=== PATIENT | female | born 1945 | race Caucasian/White ===

== ENCOUNTER → 2020-05-20 13:56 | Outpatient (BNVA) | payer MEDICARE, SELFPAY | PROVIDERS: PCP Internal Medicine; Visit Provider Internal Medicine | DX: Z95.2 Presence of prosthetic heart valve (principal); Z79.01 Long term (current) use of anticoagulants; Z51.81 Encounter for therapeutic drug level monitoring | CPT/HCPCS: 99212 ==

== ENCOUNTER 2020-05-22 13:31 | Outpatient (REF) | payer MEDICARE, SELFPAY ==
--- NOTE | 2020-05-22 | MM_ITS ---
EXAMINATION: MM SCREENING DIGITAL BREAST TOMOSYNTHESIS, BILATERAL CLINICAL INFORMATION: Screening. Asymptomatic. The lifetime risk of breast cancer based on the Tyrer-Cuzick Model is 3%. COMPARISON: Mammography: 05/17/2019, 01/22/2018 TECHNIQUE: Digital breast tomosynthesis is performed in both the craniocaudal and mediolateral oblique views along with computer-aided detection (CAD). Synthesized 2D images are generated from the tomosynthesis. Additional exaggerated right CC view is provided. FINDINGS: There are scattered areas of fibroglandular density (ACR BI-RADS breast composition Category b). There are no significant masses, abnormal calcifications, or other abnormalities. No significant changes from prior studies. IMPRESSION: No mammographic evidence of malignancy. ASSESSMENT: BI-RADS 1: Negative RECOMMENDATION: Routine annual mammography screening. This patient's information was entered into a reminder system with a target due date for their next mammogram.
== END 2020-05-22 13:32 | disposition home or self-care (01) ==
LOC: HO.MAMMO 13:31
PROVIDERS: PCP Internal Medicine; Visit Provider Internal Medicine
DX: Z12.31 Encounter for screening mammogram for malignant neoplasm of breast (principal)
CPT/HCPCS: 77063; 77067

== ENCOUNTER → 2020-06-16 14:30 | Outpatient (BNVA) | payer MEDICARE, SELFPAY | PROVIDERS: PCP Internal Medicine; Referring Provider Internal Medicine; Visit Provider Internal Medicine | DX: J44.9 Chronic obstructive pulmonary disease, unspecified (principal); G47.34 Idiopathic sleep related nonobstructive alveolar hypoventilation; Z79.01 Long term (current) use of anticoagulants; Z79.899 Other long term (current) drug therapy; Z95.2 Presence of prosthetic heart valve | CPT/HCPCS: 94010; 99212 ==

== ENCOUNTER → 2020-06-17 13:10 | Outpatient (BNVA) | payer MEDICARE, SELFPAY | PROVIDERS: PCP Internal Medicine; Visit Provider Internal Medicine | DX: Z95.2 Presence of prosthetic heart valve (principal); Z51.81 Encounter for therapeutic drug level monitoring; Z79.01 Long term (current) use of anticoagulants | CPT/HCPCS: 85610; 99211 ==

== ENCOUNTER → 2020-06-24 10:39 | Outpatient (BNVA) | payer MEDICARE, SELFPAY | PROVIDERS: PCP Internal Medicine; Visit Provider Internal Medicine | DX: Z76.89 Persons encountering health services in other specified circumstances (principal) ==

== ENCOUNTER → 2020-07-01 10:08 | Outpatient (BNVA) | payer MEDICARE, SELFPAY | PROVIDERS: PCP Internal Medicine; Visit Provider Internal Medicine | DX: Z76.89 Persons encountering health services in other specified circumstances (principal) ==

== ENCOUNTER → 2020-07-08 13:39 | Outpatient (BNVA) | payer MEDICARE, SELFPAY | PROVIDERS: PCP Internal Medicine; Referring Provider Internal Medicine; Visit Provider Internal Medicine | DX: Z76.89 Persons encountering health services in other specified circumstances (principal) ==

== ENCOUNTER → 2020-07-13 13:55 | Outpatient (BNVA) | payer MEDICARE, SELFPAY | PROVIDERS: PCP Internal Medicine; Referring Provider Internal Medicine; Visit Provider Internal Medicine Cardiovascular Disease | DX: I48.20 Chronic atrial fibrillation, unspecified (principal); I50.30 Unspecified diastolic (congestive) heart failure; T82.09XA Other mechanical complication of heart valve prosthesis, initial encounter; E78.5 Hyperlipidemia, unspecified | CPT/HCPCS: 93005; 99212 ==

== ENCOUNTER → 2020-07-15 15:00 | Outpatient (BNVA) | payer MEDICARE, SELFPAY | PROVIDERS: PCP Internal Medicine; Visit Provider Internal Medicine | DX: Z76.89 Persons encountering health services in other specified circumstances (principal) ==

== ENCOUNTER → 2020-07-22 11:46 | Outpatient (BNVA) | payer MEDICARE, SELFPAY | PROVIDERS: PCP Internal Medicine; Visit Provider Internal Medicine | DX: Z76.89 Persons encountering health services in other specified circumstances (principal) ==

== ENCOUNTER → 2020-07-29 12:34 | Outpatient (BNVA) | payer MEDICARE, SELFPAY | PROVIDERS: PCP Internal Medicine; Visit Provider Internal Medicine | DX: Z76.89 Persons encountering health services in other specified circumstances (principal) ==

== ENCOUNTER → 2020-08-05 14:16 | Outpatient (BNVA) | payer MEDICARE, SELFPAY | PROVIDERS: PCP Internal Medicine; Visit Provider Internal Medicine | DX: Z76.89 Persons encountering health services in other specified circumstances (principal) ==

== ENCOUNTER → 2020-08-12 10:45 | Outpatient (BNVA) | payer MEDICARE, SELFPAY | PROVIDERS: PCP Internal Medicine; Visit Provider Internal Medicine | DX: Z76.89 Persons encountering health services in other specified circumstances (principal) ==

== ENCOUNTER → 2020-08-13 09:05 | Outpatient (BNVA) | payer MEDICARE, SELFPAY | PROVIDERS: PCP Internal Medicine; Visit Provider Internal Medicine | DX: Z76.89 Persons encountering health services in other specified circumstances (principal) ==

== ENCOUNTER → 2020-08-19 11:55 | Outpatient (BNVA) | payer MEDICARE, SELFPAY | PROVIDERS: PCP Internal Medicine; Visit Provider Internal Medicine | DX: Z76.89 Persons encountering health services in other specified circumstances (principal) ==

== ENCOUNTER → 2020-08-26 09:51 | Outpatient (BNVA) | payer MEDICARE, SELFPAY | PROVIDERS: PCP Internal Medicine; Visit Provider Internal Medicine | DX: Z76.89 Persons encountering health services in other specified circumstances (principal) ==

== ENCOUNTER → 2020-08-31 11:58 | Outpatient (BNVA) | payer MEDICARE, SELFPAY | PROVIDERS: PCP Internal Medicine; Visit Provider Internal Medicine ==

== ENCOUNTER → 2020-09-09 10:38 | Outpatient (BNVA) | payer MEDICARE, SELFPAY | PROVIDERS: PCP Internal Medicine; Visit Provider Internal Medicine | DX: Z76.89 Persons encountering health services in other specified circumstances (principal) ==

== ENCOUNTER → 2020-09-16 12:34 | Outpatient (BNVA) | payer MEDICARE, SELFPAY | PROVIDERS: PCP Internal Medicine; Visit Provider Internal Medicine | DX: Z95.2 Presence of prosthetic heart valve (principal); Z51.81 Encounter for therapeutic drug level monitoring; Z79.01 Long term (current) use of anticoagulants | CPT/HCPCS: Q3014 ==

== ENCOUNTER → 2020-09-23 10:13 | Outpatient (BNVA) | payer MEDICARE, SELFPAY | PROVIDERS: PCP Internal Medicine; Visit Provider Internal Medicine ==

== ENCOUNTER → 2020-09-30 09:34 | Outpatient (BNVA) | payer MEDICARE, SELFPAY | PROVIDERS: PCP Internal Medicine; Visit Provider Internal Medicine | DX: Z95.2 Presence of prosthetic heart valve (principal); Z51.81 Encounter for therapeutic drug level monitoring; Z79.01 Long term (current) use of anticoagulants | CPT/HCPCS: Q3014 ==

== ENCOUNTER 2020-10-06 10:51 | Outpatient (REF) | payer MEDICARE, SELFPAY ==
[2020-10-06 13:56] LABS: Anion Gap 16 (12-20); Blood Urea Nitrogen 22 mg/dL (9-16); Carbon Dioxide 33 mmol/L (22-29); Chloride 91 mmol/L (96-108); Estimated Glomerular Filt Rate > 60; Magnesium 1.6 mg/dL (1.6-2.6); Sodium 137 mmol/L (135-145)
[2020-10-06 14:56] LABS: Free T4 (Free Thyroxine) 1.13 ng/dL (0.71-1.85)
== END 2020-10-06 10:52 | disposition home or self-care (01) ==
LOC: HO.WFDLDS 10:51
PROVIDERS: Visit Provider Internal Medicine
DX: S62.102A Fracture of unspecified carpal bone, left wrist, initial encounter for closed fracture (principal); E87.6 Hypokalemia; E83.42 Hypomagnesemia; E03.9 Hypothyroidism, unspecified
CPT/HCPCS: 36415; 80051; 82565; 83735; 84439; 84443; 84520

== ENCOUNTER → 2020-10-07 12:01 | Outpatient (BNVA) | payer MEDICARE, SELFPAY | PROVIDERS: PCP Internal Medicine; Visit Provider Internal Medicine | DX: Z95.2 Presence of prosthetic heart valve (principal); Z51.81 Encounter for therapeutic drug level monitoring; Z79.01 Long term (current) use of anticoagulants | CPT/HCPCS: Q3014 ==

== ENCOUNTER → 2020-10-14 11:01 | Outpatient (BNVA) | payer MEDICARE, SELFPAY | PROVIDERS: PCP Internal Medicine; Visit Provider Internal Medicine | DX: Z95.2 Presence of prosthetic heart valve (principal); Z51.81 Encounter for therapeutic drug level monitoring; Z79.01 Long term (current) use of anticoagulants | CPT/HCPCS: Q3014 ==

== ENCOUNTER → 2020-10-21 09:55 | Outpatient (BNVA) | payer MEDICARE, SELFPAY | PROVIDERS: PCP Internal Medicine; Visit Provider Internal Medicine | DX: Z95.2 Presence of prosthetic heart valve (principal); Z51.81 Encounter for therapeutic drug level monitoring; Z79.01 Long term (current) use of anticoagulants | CPT/HCPCS: Q3014 ==

== ENCOUNTER → 2020-10-27 14:24 | Outpatient (BNVA) | payer MEDICARE, SELFPAY | PROVIDERS: PCP Internal Medicine; Visit Provider Internal Medicine | DX: J44.9 Chronic obstructive pulmonary disease, unspecified (principal); G47.34 Idiopathic sleep related nonobstructive alveolar hypoventilation; Z79.51 Long term (current) use of inhaled steroids; Z79.899 Other long term (current) drug therapy | CPT/HCPCS: 99212 ==

== ENCOUNTER → 2020-10-28 10:49 | Outpatient (BNVA) | payer MEDICARE, SELFPAY | PROVIDERS: PCP Internal Medicine; Visit Provider Internal Medicine ==

== ENCOUNTER → 2020-11-04 10:45 | Outpatient (BNVA) | payer MEDICARE, SELFPAY | PROVIDERS: PCP Internal Medicine; Visit Provider Internal Medicine ==

== ENCOUNTER 2020-11-09 10:21 | Outpatient (REF) | payer MEDICARE, SELFPAY ==
[2020-11-09 13:38] LABS: Hematocrit 34.1 % (37-47)
[2020-11-09 14:13] LABS: Alanine Aminotransferase 22 U/L (0-31); Albumin Level 3.7 g/dL (3.5-5.0); Alkaline Phosphatase 61 U/L (39-117); Anion Gap 16 (12-20); Aspartate Amino Transferase 25 U/L (5-31); Bilirubin Direct 0.3 mg/dL (0.0-0.5); Bilirubin Total 0.8 mg/dL (0.0-1.0); Blood Urea Nitrogen 14 mg/dL (9-16); Calcium 9.3 mg/dL (8.4-10.2); Carbon Dioxide 39 mmol/L (22-29); Chloride 87 mmol/L (96-108); Cholesterol 221 mg/dL; Estimated Glomerular Filt Rate > 60; Glucose Random 100 mg/dL (60-115); HDL Cholesterol 62 mg/dL; LDL Cholesterol Calculated 145 mg/dl; Potassium 2.9 mmol/L (3.3-5.1); Sodium 139 mmol/L (135-145); Total Protein 7.3 g/dL (6.5-8.0); Triglycerides 70 mg/dL
[2020-11-09 14:31] LABS: TSH reflex Free T4 6.46 uIU/mL (0.32-4.0)
[2020-11-09 15:21] LABS: Free T4 (Free Thyroxine) 1.14 ng/dL (0.71-1.85)
== END 2020-11-09 10:22 | disposition home or self-care (01) ==
LOC: HO.WFDLDS 10:21
PROVIDERS: Visit Provider Internal Medicine
DX: E03.9 Hypothyroidism, unspecified (principal); I48.20 Chronic atrial fibrillation, unspecified; J44.9 Chronic obstructive pulmonary disease, unspecified; Z93.3 Colostomy status
CPT/HCPCS: 36415; 80048; 80061; 80076; 84439; 84443; 85014; 85018

== ENCOUNTER 2020-11-10 15:52 | Emergency (ER) | payer MEDICARE, SELFPAY ==
--- NOTE | 2020-11-10 17:14 | ECG_ITS ---
Test Reason : ABNORMAL LABS Blood Pressure : / mmHG Vent. Rate : 107 BPM Atrial Rate : 108 BPM P-R Int : 000 ms QRS Dur : 106 ms QT Int : 464 ms P-R-T Axes : 000 041 233 degrees QTc Int : 619 ms Atrial fibrillation with rapid ventricular response with premature ventricular or aberrantly conducted complexes Septal infarct (cited on or before 29-NOV-2011) ST & T wave abnormality, consider inferolateral ischemia Abnormal ECG When compared with ECG of 29-NOV-2011 14:06, Atrial fibrillation has replaced Sinus rhythm ST now depressed in Lateral leads T wave inversion less evident in Anterolateral leads QT has lengthened Referred By: Generic ED Physician Electronically Signed By:Kale Mock
[2020-11-10 17:32] VITALS: BP 139/69; PULSE 98; RESP 14; O2SAT 94
[2020-11-10 17:40] LABS: Basophils Absolute Auto 0.1 X10*3/uL (0.0-0.2); Basophils Percent Auto 0.7 % (0-2); Eosinophils Absolute Auto 0.7 X10*3/uL (0.0-0.4); Eosinophils Percent Auto 6.1 % (0-4); Hematocrit 32.7 % (37-47); Hemoglobin 10.9 g/dl (12.0-16.0); Imm Gran Abs Auto 0.04 X10*3/uL (0.00-0.03); Imm Gran Pct Auto 0.4 % (0.0-0.4); Lymphocytes Absolute Auto 0.6 X10*3/uL (1.2-4.9); Lymphocytes Percent Auto 5.2 % (20-40); MANUAL DIFF FLAG SCAN; Mean Corpuscular HGB Conc 33.3 g/dl (31.0-35.0); Mean Corpuscular Hemoglobin 29.6 pg (27.0-33.0); Mean Corpuscular Volume 88.9 fL (80-98); Mean Platelet Volume 8.4 fL (9.4-12.3); Monocytes Absolute Auto 0.7 X10*3/uL (0.1-1.2); Monocytes Percent Auto 6.3 % (2-11); Neutrophils Absolute Auto 8.9 X10*3/uL (2.0-8.3); Neutrophils Percent Auto 81.3 % (45-73); Platelet Count 376 X10*3/uL (160-400); Red Blood Count 3.68 X10*6/uL (4.20-5.50); Red Cell Distribution Width 14.3 % (11.0-16.0); SCAN SMEAR FLAG 1
[2020-11-10 18:15] LABS: Anion Gap 16 (12-20); Blood Urea Nitrogen 14 mg/dL (9-16); Calcium 8.9 mg/dL (8.4-10.2); Carbon Dioxide 34 mmol/L (22-29); Chloride 88 mmol/L (96-108); Estimated Glomerular Filt Rate > 60; Glucose Random 107 mg/dL (60-115); Potassium 2.8 mmol/L (3.3-5.1); SLIDE REVIEW VERIFIED; Sodium 135 mmol/L (135-145)
[2020-11-10 19:55] VITALS: BP 135/80; PULSE 94; RESP 16; TEMP 37.1; O2SAT 98; BMI 29.0
[2020-11-10 20:00] VITALS: BP 135/80; PULSE 94; RESP 16; TEMP 37.1; O2SAT 98
[2020-11-10 21:22] VITALS: BP 103/60; PULSE 92; RESP 19; TEMP 37.3; O2SAT 93
[2020-11-10 22:57] VITALS: BP 114/64; PULSE 98; RESP 18; TEMP 37.2; O2SAT 93
--- NOTE | 2020-11-10 23:07 | ED_ITS ---
HPI - Recheck/Abnormal Lab/Rx General Chief Complaint: Recheck/Abnormal Lab/Rx Stated Complaint: abnormal labs Time Seen by Provider: 11/10/20 22:57 History of Present Illness HPI narrative: Patient is a 75-year-old female presents today with having a low potassium. Patient sent in for repletion. Has no clinical symptoms. Has a history of hypertension is on water pill. Patient had previous history of hypokalemia in the past. Related Data Home Medications Medication Instructions Recorded Confirmed albuterol sulfate 2.5 mg INHALATION Q4-6H PRN 09/30/20 10/07/20 fluticasone 500 mcg-salmeterol 50 ea INHALATION 09/30/20 10/07/20 mcg/dose blistr powdr for inhalation gabapentin 100 mg capsule 100 mg PO TID 09/30/20 10/07/20 montelukast 10 mg tablet 10 mg PO DAILY 09/30/20 10/07/20 potassium chloride 10 mEq 40 meq PO DAILY tab 10/27/20 tablet,extended release Previous Rx's Medication Instructions Recorded atorvastatin 80 mg tablet 80 mg PO BEDTIME 90 Days #90 tab 07/13/20 diltiazem HCl 180 mg 180 mg PO BID 90 Days #180 cap 07/23/20 capsule,extended release 24 hr warfarin 5 mg tablet 5 mg PO DAILY 90 Days #120 tab 08/12/20 metolazone 2.5 mg tablet 2.5 mg PO DAILY 90 Days #90 tab 08/21/20 levothyroxine 125 mcg tablet 125 mcg PO DAILY #90 cap 09/21/20 omeprazole 20 mg capsule,delayed 20 mg PO DAILY #90 cap 09/21/20 release bumetanide 2 mg tablet 2 mg PO DAILY #30 tab 10/14/20 Allergies Allergy/AdvReac Type Severity Reaction Status Date / Time aspirin Allergy Unknown Sick Verified 11/04/20 10:46 codeine [CODEINE] AdvReac Intermediate NAUSEA & Verified 11/04/20 10:46 VOMITING ibuprofen [From ADVIL] AdvReac Intermediate NAUSEA & Verified 11/04/20 10:46 VOMITING Review of Systems Review of Systems: Constitutional: No Weight loss, No Fever, No Chills, No Night Sweats, No Fatigue, No Malaise ENT/Mouth: No Hearing loss, No Ear Pain, No Nasal Congestion, No Sinus Pain, No Hoarseness, No sore throat, No Rhinorrhea, No Swallowing Difficulty Eyes: No Eye Pain, No Swelling, No Redness, No Foreign Body, No Discharge, No Vision Changes Cardiovascular: No Chest Pain, No SOB, No Dyspnea on Exertion, No Orthopnea, No Edema, No Palpitations Respiratory: No Cough, No Sputum, No Wheezing, No Smoke Exposure, No Dyspnea Gastrointestinal: No Nausea, No Vomiting, No Diarrhea, No Constipation, No ab dominal Pain, No Hematochezia, No Melena Genitourinary: no irregular bleeding, No Dysuria, No Urinary Frequency, No Hematuria, No Urinary Incontinence, No Urgency, No Flank Pain, No Urinary Flow Changes, No Hesitancy Musculoskeletal: No joint pain, No Myalgias, No Joint Swelling Skin: No Skin Lesions, No rash Neuro: No Weakness, No Numbness, No Paresthesias, No Loss of Consciousness, No Dizziness, No Headache Psych: No Anxiety/Panic, No Depression, No SI/HI/AH/VH, No Social Issues, Heme/Lymph: No Bruising, No Bleeding,No Lymphadenopathy Endocrine: No Polyuria, No Polydipsia, No Temperature Intolerance FORMERLY [facility], 1928–1983 Past Medical History Attestation statement: The following information was validated with the patient. Medical History (HFpEF) heart failure with preserved ejection fraction Asthma Chronic atrial fibrillation COPD (chronic obstructive pulmonary disease) COPD (chronic obstructive pulmonary disease) GERD (gastroesophageal reflux disease) Hyperlipidemia Hypothyroid Nocturnal hypoxemia Prosthetic valve dysfunction Surgical History History of carpal tunnel release History of colonoscopy History of hysterectomy History of mechanical aortic valve replacement (~2002) History of salpingo-oophorectomy Family History Family History Mother No problems noted. Father Myocardial infarction CAD (coronary artery disease) Brother Myocardial infarction Brother Myocardial infarction Social History Social History Alcohol intake: unknown Smoking Status: Never smoker Use of substances other than those prescribed or required for medical reasons: No Advance Directives: No Physical Exam Vital Signs: Vital Signs: Last Vital Signs Temp 99.0 F 11/10/20 22:57 Pulse 98 11/10/20 22:57 Resp 18 11/10/20 22:57 BP 114/64 11/10/20 22:57 Pulse Ox 93 11/10/20 22:57 Body Mass Index 29.0 Appearance: Alert. Oriented X3. No acute distress. Eyes: Pupils equal, round and reactive to light. ENT: Pharynx normal. Neck: Normal inspection. Neck supple. No lymph nodes noted. No crepitus CVS: Normal heart rate and rhythm. Pulses normal. Normal S1 and S2 Respiratory: No respiratory distress. Breath sounds normal. No Wheezing. No rales Abdomen: Soft and nontender. No rigidity. No distention. good BS x4 Skin: Skin warm and dry. Normal skin color. Normal skin turgor. Extremities: No lower extremity edema. Neurovascular intact to all extremities. No Lacerations. No Rash Neuro: Oriented X 3. No motor deficit. No sensory deficit. Moving all extermities. No slurred speech MDM - Recheck/Abnormal Lab/Rx MDM Narrative Medical decision making narrative: Well-appearing no distress. Patient's potassium was 2.8. Will get a magnesium level. Will replete potassium. Patient's potassium was repleted. Repeat potassium is now 3.3. Will discharge patient home. Close follow-up outpatient basis. Encourage food that would in repeat her potassium including banana, v 8, orange juice, baked beans Lab Data Result diagrams: 11/10/20 17:31 11/11/20 00:33 Labs: Lab Results 11/10/20 11/10/20 11/11/20 Range/Units 17:31 17: 00:33 WBC 11.0 H (4.8-10.8) X10*3/uL RBC 3.68 L (4.20-5.50) X10*6/uL Hgb 10.9 L (12.0-16.0) g/dl Hct 32.7 L (37-47) % MCV 88.9 (80-98) fL MCH 29.6 (27.0-33.0) pg MCHC 33.3 (31.0-35.0) g/dl RDW 14.3 (11.0-16.0) % Plt Count 376 (160-400) X10*3/uL MPV 8.4 L (9.4-12.3) fL Immature Gran % (Auto) 0.4 (0.0-0.4) % Neut % (Auto) 81.3 H (45-73) % Lymph % (Auto) 5.2 L (20-40) % Mccracken % (Auto) 6.3 (2-11) % Eos % (Auto) 6.1 H (0-4) % Baso % (Auto) 0.7 (0-2) % Lymph # (Auto) 0.6 L (1.2-4.9) X10*3/uL Mccracken # (Auto) 0.7 (0.1-1.2) X10*3/uL Eos # (Auto) 0.7 H (0.0-0.4) X10*3/uL Baso # (Auto) 0.1 (0.0-0.2) X10*3/uL Abs Immat Gran (auto) 0.04 H (0.00-0.03) X10*3/uL Absolute Neuts (auto) 8.9 H (2.0-8.3) X10*3/uL Absolute Nucleated RBC 0.000 (0.0-0.012) X10*3/uL Nucleated RBC % (auto) 0.0 (0.0-0.2) /100WBC Smear Tech's Comments VERIFIED Sodium 135 135 (135-145) mmol/L Potassium 2.8 L 3.3 (3.3-5.1) mmol/L Chloride 88 L 94 L (96-108) mmol/L Carbon Dioxide 34 H 29 (22-29) mmol/L Anion Gap 16 15 (12-20) BUN 14 13 (9-16) mg/dL Creatinine 0.80 0.76 (0.5-1.4) mg/dL Estim Creat Clear Calc TNP 70.0 Estimated GFR > 60 > 60 Random Glucose 107 120 H (60-115) mg/dL Calcium 8.9 8.1 L D (8.4-10.2) mg/dL Magnesium 1.7 (1.6-2.6) mg/dL Discharge Plan Discharge Clinical Impression: Hypokalemia Patient Disposition: Home, Self-Care Instructions: Hypokalemia (ED) Additional Instructions: Encourage food that would in repeat your potassium including banana, v 8, orange juice, baked beans Prescriptions: No Action diltiazem HCl [Cardizem CD] 180 mg capsule,extended release 24hr 180 mg PO BID 90 Days Qty: 180 RF: 1 metolazone 2.5 mg tablet 2.5 mg PO DAILY 90 Days Qty: 90 RF: 1 omeprazole 20 mg capsule,delayed release(DR/EC) 20 mg PO DAILY Qty: 90 RF: 0 levothyroxine 125 mcg tablet 125 mcg PO DAILY Qty: 90 RF: 0 bumetanide 2 mg tablet 2 mg PO DAILY Qty: 30 RF: 1 atorvastatin 80 mg tablet 80 mg PO BEDTIME 90 Days Qty: 90 RF: 1 warfarin 5 mg tablet 5 mg PO DAILY 90 Days Qty: 120 RF: 1 montelukast 10 mg tablet 10 mg PO DAILY RF: 0 gabapentin 100 mg capsule 100 mg PO TID RF: 0 albuterol sulfate 2.5 mg /3 mL (0.083 %) solution for nebulization 2.5 mg inhalation Q4-6H PRNRF: 0 fluticasone propion-salmeterol 500-50 mcg/dose blister with device inhalation RF: 0 potassium chloride 10 mEq tablet extended release 40 meq PO DAILY RF: 0
[2020-11-10] MEDS: Potassium Chloride Packet 20 MEQ PACKET 40 MEQ PO (23:08)
[2020-11-10 23:15] LABS: Magnesium 1.7 mg/dL (1.6-2.6)
[2020-11-10] MEDS: Potassium Chloride/H20 10 MEQ/100 ML PIGGYBACK 100 MEQ IV (23:42)
[2020-11-11] VITALS: BP 127/64; PULSE 79; RESP 18; O2SAT 93
[2020-11-11] MEDS: Potassium Chloride/H20 10 MEQ/100 ML PIGGYBACK 100 MEQ IV (00:40)
[2020-11-11 01:18] LABS: Anion Gap 15 (12-20); Blood Urea Nitrogen 13 mg/dL (9-16); Calcium 8.1 mg/dL (8.4-10.2); Carbon Dioxide 29 mmol/L (22-29); Chloride 94 mmol/L (96-108); Estimated Glomerular Filt Rate > 60; Glucose Random 120 mg/dL (60-115); Potassium 3.3 mmol/L (3.3-5.1); Sodium 135 mmol/L (135-145)
== END 2020-11-11 01:45 | disposition home or self-care (01) ==
PROVIDERS: Emergency Provider Emergency Medicine Emergency Medical Services; PCP Internal Medicine
DX: E87.6 Hypokalemia (principal); R79.89 Other specified abnormal findings of blood chemistry; Z79.899 Other long term (current) drug therapy
CPT/HCPCS: 36415; 80048; 83735; 85025; 93005; 99283; 99284

== ENCOUNTER → 2020-11-11 13:33 | Outpatient (BNVA) | payer MEDICARE, SELFPAY | PROVIDERS: PCP Internal Medicine; Visit Provider Internal Medicine ==

== ENCOUNTER → 2020-11-12 10:03 | Outpatient (BNVA) | payer MEDICARE, SELFPAY | PROVIDERS: PCP Internal Medicine; Visit Provider Internal Medicine | DX: Z95.2 Presence of prosthetic heart valve (principal); Z79.01 Long term (current) use of anticoagulants; Z51.81 Encounter for therapeutic drug level monitoring | CPT/HCPCS: 99212; Q3014 ==

== ENCOUNTER → 2020-11-13 10:27 | Outpatient (BNVA) | payer MEDICARE, SELFPAY | PROVIDERS: PCP Internal Medicine; Visit Provider Internal Medicine | DX: Z95.2 Presence of prosthetic heart valve (principal); Z79.01 Long term (current) use of anticoagulants; Z51.81 Encounter for therapeutic drug level monitoring | CPT/HCPCS: Q3014 ==

== ENCOUNTER → 2020-11-18 10:59 | Outpatient (BNVA) | payer MEDICARE, SELFPAY | PROVIDERS: PCP Internal Medicine; Visit Provider Internal Medicine ==

== ENCOUNTER 2020-11-24 11:03 | Outpatient (REF) | payer MEDICARE, SELFPAY ==
[2020-11-24 14:16] LABS: Anion Gap 12 (12-20); Blood Urea Nitrogen 16 mg/dL (9-16); Calcium 9.4 mg/dL (8.4-10.2); Carbon Dioxide 35 mmol/L (22-29); Chloride 92 mmol/L (96-108); Estimated Glomerular Filt Rate > 60; Glucose Random 108 mg/dL (60-115); Magnesium 1.9 mg/dL (1.6-2.6); Potassium 3.7 mmol/L (3.3-5.1); Sodium 135 mmol/L (135-145)
== END 2020-11-24 11:04 | disposition home or self-care (01) ==
LOC: HO.WFDLDS 11:03
PROVIDERS: PCP Internal Medicine; Visit Provider Internal Medicine Cardiovascular Disease
DX: E87.6 Hypokalemia (principal); I50.30 Unspecified diastolic (congestive) heart failure
CPT/HCPCS: 36415; 80048; 83735

== ENCOUNTER → 2020-11-25 11:34 | Outpatient (BNVA) | payer MEDICARE, SELFPAY | PROVIDERS: PCP Internal Medicine; Visit Provider Internal Medicine ==

== ENCOUNTER → 2020-12-01 14:44 | Outpatient (BNVA) | payer MEDICARE, SELFPAY | PROVIDERS: PCP Internal Medicine; Visit Provider Nurse Practitioner Family | DX: Z12.11 Encounter for screening for malignant neoplasm of colon (principal) | CPT/HCPCS: 99202 ==

== ENCOUNTER → 2020-12-02 12:06 | Outpatient (BNVA) | payer MEDICARE, SELFPAY | PROVIDERS: PCP Internal Medicine; Visit Provider Internal Medicine ==

== ENCOUNTER → 2020-12-09 08:37 | Outpatient (BNVA) | payer MEDICARE, SELFPAY | PROVIDERS: PCP Internal Medicine; Visit Provider Internal Medicine ==

== ENCOUNTER → 2020-12-16 13:05 | Outpatient (BNVA) | payer MEDICARE, SELFPAY | PROVIDERS: PCP Internal Medicine; Visit Provider Internal Medicine | DX: Z95.2 Presence of prosthetic heart valve (principal); Z51.81 Encounter for therapeutic drug level monitoring; Z79.01 Long term (current) use of anticoagulants | CPT/HCPCS: 85610; 99211 ==

== ENCOUNTER → 2020-12-23 11:23 | Outpatient (BNVA) | payer MEDICARE, SELFPAY | PROVIDERS: PCP Family Medicine; Visit Provider Internal Medicine ==

== ENCOUNTER → 2020-12-30 11:48 | Outpatient (BNVA) | payer MEDICARE, SELFPAY | PROVIDERS: PCP Family Medicine; Visit Provider Internal Medicine | DX: Z95.2 Presence of prosthetic heart valve (principal); Z51.81 Encounter for therapeutic drug level monitoring; Z79.01 Long term (current) use of anticoagulants | CPT/HCPCS: Q3014 ==

== ENCOUNTER → 2021-01-01 13:26 | Outpatient (BNVA) | payer MEDICARE, SELFPAY | PROVIDERS: PCP Family Medicine; Visit Provider Nurse Practitioner Family | DX: Z12.11 Encounter for screening for malignant neoplasm of colon (principal) | CPT/HCPCS: Q3014 ==

== ENCOUNTER → 2021-01-06 11:11 | Outpatient (BNVA) | payer MEDICARE, SELFPAY | PROVIDERS: PCP Family Medicine; Visit Provider Internal Medicine ==

== ENCOUNTER → 2021-01-13 10:23 | Outpatient (BNVA) | payer MEDICARE, SELFPAY | PROVIDERS: PCP Family Medicine; Visit Provider Internal Medicine ==

== ENCOUNTER → 2021-01-20 10:29 | Outpatient (BNVA) | payer MEDICARE, SELFPAY | PROVIDERS: PCP Family Medicine; Visit Provider Internal Medicine ==

== ENCOUNTER → 2021-01-27 10:05 | Outpatient (BNVA) | payer MEDICARE, SELFPAY | PROVIDERS: PCP Family Medicine; Visit Provider Internal Medicine ==

== ENCOUNTER 2021-02-02 11:14 | Outpatient (REF) | payer MEDICARE, SELFPAY ==
[2021-02-02 13:41] LABS: Hematocrit 34.8 % (37-47); Hemoglobin 11.1 g/dl (12.0-16.0); Mean Corpuscular HGB Conc 31.9 g/dl (31.0-35.0); Mean Corpuscular Hemoglobin 27.8 pg (27.0-33.0); Mean Corpuscular Volume 87.2 fL (80-98); Mean Platelet Volume 8.8 fL (9.4-12.3); Platelet Count 422 X10*3/uL (160-400); Red Blood Count 3.99 X10*6/uL (4.20-5.50); Red Cell Distribution Width 15.6 % (11.0-16.0); White Blood Count 9.8 X10*3/uL (4.8-10.8)
[2021-02-02 14:13] LABS: Alanine Aminotransferase 18 U/L (0-31); Albumin Level 4.1 g/dL (3.5-5.0); Alkaline Phosphatase 54 U/L (39-117); Anion Gap 13 (12-20); Aspartate Amino Transferase 23 U/L (5-31); Bilirubin Total 0.6 mg/dL (0.0-1.0); Blood Urea Nitrogen 16 mg/dL (9-16); Calcium 10.1 mg/dL (8.4-10.2); Carbon Dioxide 33 mmol/L (22-29); Chloride 96 mmol/L (96-108); Estimated Glomerular Filt Rate > 60; Glucose Random 104 mg/dL (60-115); Potassium 3.9 mmol/L (3.3-5.1); Sodium 138 mmol/L (135-145); Total Protein 7.8 g/dL (6.5-8.0)
== END 2021-02-02 11:15 | disposition home or self-care (01) ==
LOC: HO.WFDLDS 11:14
PROVIDERS: Visit Provider Nurse Practitioner Family
DX: Z00.00 Encounter for general adult medical examination without abnormal findings (principal); Z95.2 Presence of prosthetic heart valve; Z12.11 Encounter for screening for malignant neoplasm of colon
CPT/HCPCS: 36415; 80053; 85027

== ENCOUNTER → 2021-02-03 09:16 | Outpatient (BNVA) | payer MEDICARE, SELFPAY | PROVIDERS: PCP Family Medicine; Visit Provider Internal Medicine ==

== ENCOUNTER → 2021-02-10 09:54 | Outpatient (BNVA) | payer MEDICARE, SELFPAY | PROVIDERS: PCP Family Medicine; Visit Provider Internal Medicine ==

== ENCOUNTER 2021-02-10 10:22 | Outpatient (REF) | payer MEDICARE, SELFPAY ==
[2021-02-10 13:44] LABS: MANUAL DIFF FLAG NO
[2021-02-10 13:56] LABS: Basophils Absolute Auto 0.1 X10*3/uL (0.0-0.2); Basophils Percent Auto 0.8 % (0-2); Eosinophils Absolute Auto 0.2 X10*3/uL (0.0-0.4); Eosinophils Percent Auto 2.9 % (0-4); Hematocrit 32.4 % (37-47); Hemoglobin 10.3 g/dl (12.0-16.0); Imm Gran Abs Auto 0.04 X10*3/uL (0.00-0.03); Imm Gran Pct Auto 0.5 % (0.0-0.4); Lymphocytes Absolute Auto 0.7 X10*3/uL (1.2-4.9); Lymphocytes Percent Auto 8.6 % (20-40); Mean Corpuscular HGB Conc 31.8 g/dl (31.0-35.0); Mean Corpuscular Hemoglobin 27.5 pg (27.0-33.0); Mean Corpuscular Volume 86.6 fL (80-98); Monocytes Absolute Auto 0.6 X10*3/uL (0.1-1.2); Monocytes Percent Auto 7.1 % (2-11); Neutrophils Absolute Auto 6.3 X10*3/uL (2.0-8.3); Neutrophils Percent Auto 80.1 % (45-73); Platelet Count 411 X10*3/uL (160-400); Red Blood Count 3.74 X10*6/uL (4.20-5.50); Red Cell Distribution Width 15.6 % (11.0-16.0); White Blood Count 7.9 X10*3/uL (4.8-10.8)
[2021-02-10 14:02] LABS: INTERNATIONAL NORM RATIO 2.2 (0.9-1.1); Prothrombin Time 26.7 SEC (10.8-13.0)
[2021-02-10 14:19] LABS: Alanine Aminotransferase 20 U/L (0-31); Albumin Level 3.9 g/dL (3.5-5.0); Alkaline Phosphatase 54 U/L (39-117); Anion Gap 12 (12-20); Aspartate Amino Transferase 22 U/L (5-31); Bilirubin Total 0.4 mg/dL (0.0-1.0); Blood Urea Nitrogen 16 mg/dL (9-16); Calcium 9.4 mg/dL (8.4-10.2); Carbon Dioxide 33 mmol/L (22-29); Chloride 93 mmol/L (96-108); Cholesterol 195 mg/dL; Estimated Glomerular Filt Rate > 60; Glucose Fasting 107 mg/dL (60-99); HDL Cholesterol 61 mg/dL; LDL Cholesterol Calculated 121 mg/dl; Potassium 3.3 mmol/L (3.3-5.1); Sodium 135 mmol/L (135-145); Total Protein 7.4 g/dL (6.5-8.0); Triglycerides 65 mg/dL
[2021-02-10 14:41] LABS: TSH reflex Free T4 12.03 uIU/mL (0.32-4.0)
[2021-02-10 15:24] LABS: Free T4 (Free Thyroxine) 0.89 ng/dL (0.71-1.85)
== END 2021-02-10 10:23 | disposition home or self-care (01) ==
LOC: HO.WFDLDS 10:22
PROVIDERS: Visit Provider Family Medicine
DX: Z00.00 Encounter for general adult medical examination without abnormal findings (principal); Z95.2 Presence of prosthetic heart valve
CPT/HCPCS: 36415; 80053; 80061; 84439; 84443; 85025; 85610

== ENCOUNTER → 2021-02-17 12:06 | Outpatient (BNVA) | payer MEDICARE, SELFPAY | PROVIDERS: PCP Family Medicine; Visit Provider Internal Medicine ==

== ENCOUNTER → 2021-02-23 13:57 | Outpatient (BNVA) | payer MEDICARE, SELFPAY | PROVIDERS: PCP Family Medicine; Visit Provider Internal Medicine | DX: J44.9 Chronic obstructive pulmonary disease, unspecified (principal); G47.34 Idiopathic sleep related nonobstructive alveolar hypoventilation; R09.02 Hypoxemia | CPT/HCPCS: 99212 ==

== ENCOUNTER → 2021-02-24 10:09 | Outpatient (BNVA) | payer MEDICARE, SELFPAY | PROVIDERS: PCP Family Medicine; Visit Provider Internal Medicine ==

== ENCOUNTER → 2021-02-25 12:37 | Outpatient (BNVA) | payer MEDICARE, SELFPAY | PROVIDERS: PCP Family Medicine; Referring Provider Family Medicine; Visit Provider Internal Medicine Cardiovascular Disease | DX: I50.30 Unspecified diastolic (congestive) heart failure (principal); I48.20 Chronic atrial fibrillation, unspecified; T82.09XA Other mechanical complication of heart valve prosthesis, initial encounter; Z79.899 Other long term (current) drug therapy | CPT/HCPCS: 99212 ==

== ENCOUNTER → 2021-03-03 10:26 | Outpatient (BNVA) | payer MEDICARE, SELFPAY | PROVIDERS: PCP Family Medicine; Visit Provider Internal Medicine ==

== ENCOUNTER → 2021-03-10 11:50 | Outpatient (BNVA) | payer MEDICARE, SELFPAY | PROVIDERS: PCP Family Medicine; Visit Provider Internal Medicine ==

== ENCOUNTER → 2021-03-17 08:22 | Outpatient (BNVA) | payer MEDICARE, SELFPAY | PROVIDERS: PCP Family Medicine; Visit Provider Internal Medicine | DX: Z79.01 Long term (current) use of anticoagulants (principal) | CPT/HCPCS: Q3014 ==

== ENCOUNTER → 2021-03-24 10:55 | Outpatient (BNVA) | payer MEDICARE, SELFPAY | PROVIDERS: PCP Family Medicine; Visit Provider Internal Medicine ==

== ENCOUNTER → 2021-03-31 10:47 | Outpatient (BNVA) | payer MEDICARE, SELFPAY | PROVIDERS: PCP Family Medicine; Visit Provider Internal Medicine ==

== ENCOUNTER → 2021-04-07 09:13 | Outpatient (BNVA) | payer MEDICARE, SELFPAY | PROVIDERS: PCP Family Medicine; Visit Provider Internal Medicine ==

== ENCOUNTER → 2021-04-14 11:55 | Outpatient (BNVA) | payer MEDICARE, SELFPAY | PROVIDERS: PCP Family Medicine; Visit Provider Internal Medicine ==

== ENCOUNTER → 2021-04-21 09:48 | Outpatient (BNVA) | payer MEDICARE, SELFPAY | PROVIDERS: PCP Family Medicine; Visit Provider Internal Medicine ==

== ENCOUNTER → 2021-04-28 09:15 | Outpatient (BNVA) | payer MEDICARE, SELFPAY | PROVIDERS: PCP Family Medicine; Visit Provider Internal Medicine ==

== ENCOUNTER → 2021-05-05 08:37 | Outpatient (BNVA) | payer MEDICARE, SELFPAY | PROVIDERS: PCP Family Medicine; Visit Provider Internal Medicine ==

== ENCOUNTER → 2021-05-12 09:02 | Outpatient (BNVA) | payer MEDICARE, SELFPAY | PROVIDERS: PCP Family Medicine; Visit Provider Internal Medicine ==

== ENCOUNTER → 2021-05-17 14:00 | Outpatient (REF) | payer MEDICARE, SELFPAY ==
--- NOTE | 2021-05-17 14:03 | CA_ITS ---
Transthoracic Echocardiogram Patient (Last, First, Middle): Danielle Barrera A Gender: Female Date of : 1945 Age: 75 Procedure Date: 05/17/2021 Procedure Type: Transthoracic Echocardiogram Location: OP Height: 167.64 cm Weight: 79.83 kg BSA: 1.89 m2 Heart Rate: bpm BP: 110 / 70 mmHg Freezer Laboratory Technician: MELISSA/RADHA Referring MD: Darius Spicer MD Symptoms: T82.09XA - Other mechanical complication of heart valve p... Study Quality: Fair ECG Rhythm: Atrial Fibrillation Conclusions: - Based on visual estimation and biplane method, LVEF about 50%. - Severe biatrial enlargement. - A mechanical prosthetic aortic valve is present. The mean gradient is 21 mmHg. The aortic valve area is 1.04 cm2. Acceleration time 80msec. Possible patient-prosthesis mismatch. - There is moderate mitral annular calcification. There is mild mitral valve regurgitation. Findings Left Ventricle Normal left ventricular cavity size. There is normal left ventricular wall thickness. The left ventricular systolic function is mildly decreased. Diastolic function is indeterminate on the basis of available data. Based on visual estimation and biplane method, LVEF about 50%. Right Ventricle There is low normal right ventricular systolic function. Top normal RV size. TAPSE 1.7cm. Atria Severe biatrial enlargement. Aortic Valve A mechanical prosthetic aortic valve is present. The peak aortic velocity is 3.05 m/s with a calculated peak gradient of 37 mmHg. The mean gradient is 21 mmHg. The aortic valve area is 1.04 cm2. Acceleration time 80msec. Possible patient-prosthesis mismatch. Trace regurgitation; cannot state valvular vs para-valvular. Mitral Valve There is moderate mitral annular calcification. There is mild mitral valve regurgitation. There is no mitral valve stenosis. Pulmonic Valve The pulmonic valve was not well visualized. Tricuspid Valve Normal tricuspid valve structure. There is trace tricuspid valve regurgitation. The pulmonary artery systolic pressure is normal. Great Vessels The aortic annulus, sinuses of valsalva, asc aorta, and aortic arch are normal in size. Venous The inferior vena cava is normal in size and collapses less than 50% with inspiration. Pericardium/Pleural There is no evidence of pericardial effusion. Prior Study Comparison No significant change compared to prior study dated: 05/06/2020. Measurements 2D Linear Measurements IVSd: 1.04 0.6-0.9/0.6-1.0 cm LVIDd: 5.24 3.9-5.3/4.2-5.9 cm LVIDd Index: 2.77 2.4-3.2/2.2-3.1 cm/m2 LVIDs: 3.79 2.0-3.6 cm LVPWd: 0.97 0.7-1.1 cm Ao Root: 3.20 2.1-3.5 cm LA Diam: 4.60 2.7-3.8/3.0-4.0 cm LAIDs Index: 2.43 1.5-2.3 cm/m2 LV Mass: 246.52 67-162/88-224 g LV Mass Index: 130.44 43-95/49-115 g/m2 LVOT Diam: 2.00 3.0+(-)1.3 cm 2D Systolic Function EF 4C: 51.90 >55% EF 2C: 39.90 >55% EF BiP: 45.00 >55% Mitral Valve E'Lateral: 11.40 E'Medial: 9.79 Aortic Valve AoV Pk Chalo: 3.05 AoV Mn Chalo: 2.20 AoV VTI: 0.63 AoV Pk Grad: 37.00 Aov Mn Grad: 21.00 FRANCISCO Cont.VTI: 1.04 LVOT LVOT Pk Chalo: 0.91 LVOT Mn Chalo: 0.65 LVOT VTI: 0.21 LVOT Pk Grad: 3.00 LVOT Mn Grad: 2.00 LVOT Diam: 2.00 LVOT Area: 3.14 Diastolic Function E'Medial: 9.79 E' Laterial: 11.40 Right Ventricle TAPSE (mm): 1.74 TVS' Chalo: 10.20 Tricuspid Valve TR Pk Chalo: 1.98 TR Pk Grad: 16.00 RA Press: 8.00 RVSP: 24.00 Great Vessels Aorta Ao Root-2D: 3.20 2.0-3.7 cm Ao Asc: 3.70 2.1-3.4 cm Ao Arch: 2.70 Updated in Other Vendor System with Status of Final Collin Sharif MD electronically signed on 05/17/2021 4:35:44 PM with status of Final
== END ==
LOC: HO.CARD 14:00
PROVIDERS: PCP Family Medicine; Visit Provider Internal Medicine Cardiovascular Disease
DX: I48.20 Chronic atrial fibrillation, unspecified (principal); I50.30 Unspecified diastolic (congestive) heart failure; T82.09XD Other mechanical complication of heart valve prosthesis, subsequent encounter
CPT/HCPCS: 93306

== ENCOUNTER → 2021-05-19 09:20 | Outpatient (BNVA) | payer MEDICARE, SELFPAY | PROVIDERS: PCP Family Medicine; Visit Provider Internal Medicine | DX: I48.20 Chronic atrial fibrillation, unspecified (principal) | CPT/HCPCS: Q3014 ==

== ENCOUNTER 2021-05-19 09:56 | Outpatient (REF) | payer MEDICARE, SELFPAY ==
[2021-05-19 14:49] LABS: Anion Gap 14 (12-20); Blood Urea Nitrogen 11 mg/dL (9-16); Calcium 9.4 mg/dL (8.4-10.2); Carbon Dioxide 28 mmol/L (22-29); Chloride 103 mmol/L (96-108); Estimated Glomerular Filt Rate > 60; Glucose Random 92 mg/dL (60-115); Potassium 4.5 mmol/L (3.3-5.1); Sodium 140 mmol/L (135-145)
[2021-05-19 15:14] LABS: Free T4 (Free Thyroxine) 0.91 ng/dL (0.71-1.85); Thyroid Stimulating Hormone 13.35 uIU/mL (0.32-4.0)
[2021-05-21 21:31] LABS: Triiodothyronine T3 Total 64 ng/dL (76-181)
== END 2021-05-19 09:57 | disposition home or self-care (01) ==
LOC: HO.WFDLDS 09:56
PROVIDERS: Visit Provider Family Medicine
DX: Z00.00 Encounter for general adult medical examination without abnormal findings (principal); E03.9 Hypothyroidism, unspecified
CPT/HCPCS: 36415; 80048; 84439; 84443; 84480

== ENCOUNTER → 2021-05-26 10:23 | Outpatient (BNVA) | payer MEDICARE, SELFPAY | PROVIDERS: PCP Family Medicine; Visit Provider Internal Medicine | DX: I48.20 Chronic atrial fibrillation, unspecified (principal) | CPT/HCPCS: Q3014 ==

== ENCOUNTER → 2021-06-02 09:29 | Outpatient (BNVA) | payer MEDICARE, SELFPAY | PROVIDERS: PCP Family Medicine; Visit Provider Internal Medicine ==

== ENCOUNTER → 2021-06-03 12:48 | Outpatient (BNVA) | payer MEDICARE, SELFPAY | PROVIDERS: PCP Family Medicine; Referring Provider Family Medicine; Visit Provider Internal Medicine Cardiovascular Disease | DX: I50.30 Unspecified diastolic (congestive) heart failure (principal); I48.20 Chronic atrial fibrillation, unspecified; T82.09XD Other mechanical complication of heart valve prosthesis, subsequent encounter | CPT/HCPCS: 99212 ==

== ENCOUNTER 2021-06-04 08:24 | Outpatient (REF) | payer MEDICARE, SELFPAY ==
--- NOTE | ~2021-06-04 | MM_ITS ---
EXAMINATION: MM SCREENING DIGITAL BREAST TOMOSYNTHESIS, BILATERAL CLINICAL INFORMATION: Screening. Asymptomatic. The lifetime risk of breast cancer based on the Tyrer-Cuzick Model is 2%. COMPARISON: Mammography: 05/22/2020, 05/17/2019, 01/22/2018, 11/23/2016, TECHNIQUE: Digital breast tomosynthesis is performed in both the craniocaudal and mediolateral oblique views along with computer-aided detection (CAD). Synthesized 2D images are generated from the tomosynthesis. FINDINGS: There are scattered areas of fibroglandular density (ACR BI-RADS breast composition Category b). The left MLO view has asymmetric density anterior upper quadrant within 3 cm of nipple likely incompletely compressed glandular tissue or summation artifact. Patient will be recalled for additional imaging. The remainder of the breasts are no interval mass or architectural abnormality. There are scattered bilateral vascular and some rim calcifications. The axilla and skin contours are unremarkable. MM/MM tomosynthesis screening BI IMPRESSION: 1. Left: Asymmetric density anterior upper breast on MLO view, possibly summation artifact or breast glandular tissue. 2. Right: No mammographic evidence of malignancy. ASSESSMENT: BI-RADS 0: Incomplete - Need Additional Imaging Evaluation RECOMMENDATION: 1. Additional views of the left breast (spot MLO, standard ML). 2. Targeted ultrasound if warranted after review of the additional views. 3. Radiology department staff will contact the patient for additional imaging. This patient's information was entered into a reminder system with a target due date for their next mammogram.
--- NOTE | ~2021-06-04 | MM_ITS ---
EXAMINATION: BONE DENSITOMETRY CLINICAL INDICATION: Encounter for screening for osteoporosis. COMPARISON: Previous BD dated 08/30/2011 and baseline BD dated 03/04/2004. TECHNIQUE: Using a prollie DXA System (software version: 13.1) manufactured by [employer], dual-energy x-ray absorptiometry was performed of the lumbar spine and left hip. The images are of good technical quality. Summary results are attached. FINDINGS: AP SPINE L1-L4 (excluding L2): The data of L1-L4 has been changed to exclude the L2 vertebral body, because degenerative changes at this level may cause overestimation of lumbar spine density. Current: BMD 1.021 g/cm2, Z-score 0.2, T-score -1.2, osteopenia, 10.2% decrease from previous, 1.0% decrease from baseline (<5% change is not significant). Prior: BMD 1.137 g/cm2. Baseline: BMD 1.031 g/cm2. LEFT FEMUR, NECK: Current: BMD 0.784 g/cm2, Z-score -0.1, T-score -1.8, osteopenia. Prior: BMD 0.831 g/cm2. Baseline: BMD 0.780 g/cm2. LEFT FEMUR, TOTAL: Current: BMD 0.945 g/cm2, Z-score 1.0, T-score -0.5, normal, 4.8% decrease from previous, 4.0% increase from baseline (<5% change is not significant). Prior: BMD 0.993 g/cm2. Baseline: BMD 0.909 g/cm2. IDENTIFIED RISK FACTORS: Osteoporosis, height loss, history of fracture (adult). Early menopause, secondary osteoporosis, hysterectomy, right oophorectomy. HISTORY OF FRACTURE: Wrist. MEDICATIONS: Calcium supplements or multivitamin, vitamin D. MM/XR DEXA axial skeleton IMPRESSION: 1. DIAGNOSIS: Osteopenia based on the lowest T-score value of -1.8 in the femoral neck applying World Health Organization criteria. 2. 10-YEAR FRACTURE RISK PREDICTION, FRAX: Major osteoporotic fracture (clinical spine, forearm, hip or shoulder) 18.5%. Hip fracture 4.0%. 3. Treatment Recommendations: NOF guidelines recommend consideration for treatment in postmenopausal women and men age 50 and older presenting with the following: -A hip or vertebral (clinical or morphometric) fracture. -T-score less than or equal to -2.5 at the femoral neck or spine after appropriate evaluation to exclude secondary causes. -Low bone mass at the hip or spine and a 10-year fracture probability by FRAX of greater than or equal to 3% for hip fracture or greater than or equal to 20% for major osteoporotic fracture based on the [place] adapted WHO algorithm. 4. Other Recommendations: All treatment decisions require clinical judgment and consideration of individual patient factors, including patient preferences, comorbidities, previous drug use, risk factors not captured in the FRAX model (e.g. frailty, falls, vitamin D deficiency, increased bone turnover, interval significant decline in bone density) and possible under or overestimation of fracture risk by FRAX. Additional medical evaluation for secondary cause of low bone mineral density may be appropriate. FUTURE SCAN RECOMMENDATION: People with diagnosed cases of osteoporosis or at high risk for fracture should have regular bone mineral density tests. For patients eligible for Medicare, routine testing is allowed once every 2 years. The testing frequency can be increased to one year for patients who have rapidly progressing disease, those who are receiving or discontinuing medical therapy to restore bone mass, or have additional risk factors.
== END 2021-06-04 08:25 | disposition home or self-care (01) ==
LOC: HO.MAMMO 08:24
PROVIDERS: Visit Provider Family Medicine
DX: Z12.31 Encounter for screening mammogram for malignant neoplasm of breast (principal); Z13.820 Encounter for screening for osteoporosis; Z78.0 Asymptomatic menopausal state; M85.80 Other specified disorders of bone density and structure, unspecified site; Z79.899 Other long term (current) drug therapy
CPT/HCPCS: 77063; 77067; 77080

== ENCOUNTER → 2021-06-09 09:37 | Outpatient (BNVA) | payer MEDICARE, SELFPAY | PROVIDERS: PCP Family Medicine; Visit Provider Internal Medicine ==

== ENCOUNTER 2021-06-10 08:19 | Outpatient (REF) | payer MEDICARE, SELFPAY ==
--- NOTE | ~2021-06-10 | MM_ITS ---
EXAMINATION: MM DIAGNOSTIC DIGITAL BREAST TOMOSYNTHESIS, LEFT CLINICAL INFORMATION: Recall from screening for asymmetric density anterior upper breast, suspected summation artifact or incompletely compressed glandular tissue. Cc score 2%. No known family history breast cancer. COMPARISON: Mammography: 06/04/2021, 05/22/2020, 05/17/2019 TECHNIQUE: Digital breast tomosynthesis is performed. 2D images are generated from the tomosynthesis. The following views are obtained: Spot MLO, standard ML. FINDINGS: There are scattered areas of fibroglandular density (ACR BI-RADS breast composition Category b). Additional views show scattered fibroglandular tissue without interval developing density or mass or architectural abnormality. No significant changes. Results are discussed with the patient at time of visit. MM/MM tomosynthesis added views L IMPRESSION: Additional views show no significant changes from prior studies. ASSESSMENT: BI-RADS 2: Benign RECOMMENDATION: Routine annual mammography screening. This patient's information was entered into a reminder system with a target due date for their next mammogram.
== END 2021-06-10 08:20 | disposition home or self-care (01) ==
LOC: HO.MAMMO 08:19
PROVIDERS: PCP Family Medicine; Visit Provider Family Medicine
DX: R92.2 Inconclusive mammogram (principal)
CPT/HCPCS: 77061; 77065

== ENCOUNTER → 2021-06-16 09:16 | Outpatient (BNVA) | payer MEDICARE, SELFPAY | PROVIDERS: PCP Family Medicine; Visit Provider Internal Medicine ==

== ENCOUNTER → 2021-06-23 10:59 | Outpatient (BNVA) | payer MEDICARE, SELFPAY | PROVIDERS: PCP Family Medicine; Visit Provider Internal Medicine ==

== ENCOUNTER 2021-06-28 10:41 | Outpatient (REF) | payer MEDICARE, SELFPAY ==
[2021-06-28 14:23] LABS: Anion Gap 16 (12-20); Blood Urea Nitrogen 14 mg/dL (9-16); Calcium 9.8 mg/dL (8.4-10.2); Carbon Dioxide 26 mmol/L (22-29); Chloride 104 mmol/L (96-108); Estimated Glomerular Filt Rate > 60; Glucose Random 97 mg/dL (60-115); Potassium 4.7 mmol/L (3.3-5.1); Sodium 141 mmol/L (135-145)
[2021-06-28 14:45] LABS: Free T4 (Free Thyroxine) 1.19 ng/dL (0.71-1.85); Thyroid Stimulating Hormone 4.46 uIU/mL (0.32-4.0)
[2021-06-30 08:17] LABS: Triiodothyronine T3 Total 55 ng/dL (76-181)
== END 2021-06-28 10:42 | disposition home or self-care (01) ==
LOC: HO.WFDLDS 10:41
PROVIDERS: Visit Provider Family Medicine
DX: Z00.00 Encounter for general adult medical examination without abnormal findings (principal); E03.9 Hypothyroidism, unspecified
CPT/HCPCS: 36415; 80048; 84439; 84443; 84480

== ENCOUNTER → 2021-06-30 08:54 | Outpatient (BNVA) | payer MEDICARE, SELFPAY | PROVIDERS: PCP Family Medicine; Visit Provider Internal Medicine ==

== ENCOUNTER → 2021-07-07 12:02 | Outpatient (BNVA) | payer MEDICARE, SELFPAY | PROVIDERS: PCP Family Medicine; Visit Provider Internal Medicine | DX: I48.20 Chronic atrial fibrillation, unspecified (principal); Z51.81 Encounter for therapeutic drug level monitoring; Z79.01 Long term (current) use of anticoagulants | CPT/HCPCS: Q3014 ==

== ENCOUNTER 2021-07-09 05:48 | Emergency (ER) | payer MEDICARE, SELFPAY ==
[2021-07-09 06:02] VITALS: BP 125/69; PULSE 89; RESP 16; TEMP 36.7; O2SAT 97; BMI 26.9
[2021-07-09 06:11] VITALS: RESP 16
--- NOTE | 2021-07-09 06:20 | ED_ITS ---
History of Present Illness General Chief Complaint: Epistaxis Stated Complaint: nose bleed Time Seen by Provider: 07/09/21 06:03 Source: patient Mode of arrival: ambulatory Limitations: no limitations History of Present Illness HPI Narrative: patient 75 years old with history of atrial fibrillation on Coumadin been bleeding from left nostril for last 1 week off and checked her INR was 1.8 yesterday patient denied any dizziness passing out melena patient does not get epistaxis very often Related Data Home Medications Medication Instructions Recorded Confirmed fluticasone 500 mcg-salmeterol 50 ea INHALATION 09/30/20 06/28/21 mcg/dose blistr powdr for inhalation gabapentin 100 mg capsule 100 mg PO TID 09/30/20 06/28/21 montelukast 10 mg tablet 10 mg PO DAILY 09/30/20 06/28/21 aspirin 81 mg tablet,delayed 81 mg PO DAILY 12/16/20 06/28/21 release (Enteric Coated Aspirin) calcium with d PO 12/16/20 06/28/21 multivitamin PO 12/16/20 06/28/21 metolazone 2.5 mg tablet 2.5 mg PO DAILY PRN tab 06/03/21 06/28/21 Previous Rx's Medication Instructions Recorded magnesium oxide 200 mg PO DAILY #90 tab 12/01/20 warfarin 5 mg tablet 5 mg PO DAILY 90 Days #90 tab 01/05/21 bumetanide 2 mg tablet 2 mg PO DAILY 90 Days #90 tab 01/20/21 atorvastatin 80 mg tablet 80 mg PO BEDTIME 90 Days #90 tab 02/16/21 diltiazem HCl 180 mg 180 mg PO BID 90 Days #180 cap 02/16/21 capsule,extended release 24 hr (Cardizem CD) albuterol sulfate 2.5 mg (3 mL) INHALATION Q4H #540 03/30/21 cap omeprazole 20 mg capsule,delayed 20 mg PO DAILY #90 cap 03/30/21 release potassium chloride 20 mEq 60 meq PO DAILY 90 Days #270 cap 03/30/21 tablet,extended release levothyroxine 137 mcg tablet 137 mcg PO DAILY 90 Days #90 cap 05/20/21 miscellaneous medical supply #20 ea 05/20/21 miscellaneous medical supply #20 ea 05/20/21 miscellaneous medical supply #20 ea 05/20/21 amoxicillin 500 mg capsule 500 mg PO TID #20 cap 07/09/21 Allergies Allergy/AdvReac Type Severity Reaction Status Date / Time aspirin Allergy Unknown Sick Verified 07/07/21 12:14 codeine [CODEINE] AdvReac Intermediate NAUSEA & Verified 07/07/21 12:14 VOMITING ibuprofen [From ADVIL] AdvReac Intermediate NAUSEA & Verified 07/07/21 12:14 VOMITING Review of Systems Review of Systems: Yes all other systems are reviewed and are negative [facility] Past Medical History Medical History (HFpEF) heart failure with preserved ejection fraction Asthma Chronic atrial fibrillation COPD (chronic obstructive pulmonary disease) COPD (chronic obstructive pulmonary disease) Exercise hypoxemia GERD (gastroesophageal reflux disease) Hyperlipidemia Hypothyroid Nocturnal hypoxemia Prosthetic valve dysfunction Surgical History History of carpal tunnel release History of colonoscopy History of hernia surgery History of hysterectomy History of mechanical aortic valve replacement (~2002) History of salpingo-oophorectomy Hx of abdominal surgery Family History Family History Mother No problems noted. Father Myocardial infarction CAD (coronary artery disease) Brother Myocardial infarction Brother Myocardial infarction Social History Social History Housing: Other (mobile home) Alcohol intake: never Patient Tobacco Use Status: Never used Tobacco Advance Directives: No Advance Directives Information Provided: Yes service: No Current occupational status: retired Physical Exam Vital Signs: Vital Signs: Last Vital Signs Temp 98.0 F 07/09/21 06:02 Pulse 89 07/09/21 06:02 Resp 16 07/09/21 06:11 BP 125/69 07/09/21 06:02 Pulse Ox 97 07/09/21 06:02 Body Mass Index 26.9 Appearance: Alert. Oriented X3. No acute distress. Eyes: No pallor or icterus HEENT: blood clots in posterior pharynx actively bleeding from left nostril with blood clots, Oral Mucosa moist Neck: Normal inspection. Neck supple. CVS: Normal heart rate and rhythm. Pulses normal. Respiratory: No respiratory distress. Equal air entry bilateral, no wheezing/rales/rhonchi Abdomen: Soft and nontender. Bowel sounds are present, no mass palpable, no CVA tenderness Skin: Skin warm and dry. Normal skin color. Normal skin turgor. Extremities: No lower extremity edema. No calf tenderness Neuro: Oriented X 3. MDM - Epistaxis MDM Narrative Medical decision making narrative: patient with left anterior epistaxis on Coumadin with INR of 1.8. Bleeding controlled after putting the nasal tampon soaked with TXA. Will check labs and watch worse sometime before discharge Procedures Epistaxis Control Time Out Performed: Yes Nostril: Yes left Direct inspection: Yes unable to visualize Direct inspection method: Yes nasal speculum Clots removed by: Yes blowing nose Epistaxis treatment: Yes TXA soaked gauze and Yes nasal tampon Results of treatment: Yes bleeding controlled Complications: Yes none Discharge Plan Discharge Clinical Impression: Acute anterior epistaxis Patient Disposition: Home, Self-Care Instructions: Nosebleed (ED) Additional Instructions: hold Coumadin for today restart coumadin tomorrow if bleeding stops take antibiotics for prophylaxis nasal packing removal in 2 days report to ER if bleeding continues Prescriptions: New amoxicillin 500 mg capsule 500 mg PO TID Qty: 20 RF: 0 No Action magnesium oxide 200 mg magnesium tablet 200 mg PO DAILY Qty: 90 RF: 3 warfarin 5 mg tablet 5 mg PO DAILY 90 Days Qty: 90 RF: 1 bumetanide 2 mg tablet 2 mg PO DAILY 90 Days Qty: 90 RF: 5 diltiazem HCl [Cardizem CD] 180 mg capsule,extended release 24hr 180 mg PO BID 90 Days Qty: 180 RF: 3 atorvastatin 80 mg tablet 80 mg PO BEDTIME 90 Days Qty: 90 RF: 3 albuterol sulfate 2.5 mg /3 mL (0.083 %) solution for nebulization 2.5 mg inhalation Q4H Qty: 540 RF: 2 potassium chloride 20 mEq tablet extended release 60 meq PO DAILY 90 Days Qty: 270 RF: 1 omeprazole 20 mg capsule,delayed release(DR/EC) 20 mg PO DAILY Qty: 90 RF: 0 levothyroxine 137 mcg tablet 137 mcg PO DAILY 90 Days Qty: 90 RF: 3 (DME) miscellaneous medical supply Misc See Rx Instructions .ROUTE .MEDSUPPLY Qty: 20 RF: 6 (DME) miscellaneous medical supply Misc See Rx Instructions .ROUTE .MEDSUPPLY Qty: 20 RF: 6 (DME) miscellaneous medical supply Misc See Rx Instructions .ROUTE .MEDSUPPLY Qty: 20 RF: 0 multivitamin PO RF: 0 aspirin [Enteric Coated Aspirin] 81 mg tablet,delayed release (DR/EC) 81 mg PO DAILY RF: 0 calcium with d PO RF: 0 metolazone 2.5 mg tablet 2.5 mg PO DAILY PRNRF: 0 montelukast 10 mg tablet 10 mg PO DAILY RF: 0 gabapentin 100 mg capsule 100 mg PO TID RF: 0 fluticasone propion-salmeterol 500-50 mcg/dose blister with device inhalation RF: 0
[2021-07-09 07:06] VITALS: BP 121/67; PULSE 78; RESP 18; TEMP 36.8; O2SAT 95
[2021-07-09] MEDS: Amoxicillin 500 MG CAPSULE PO (07:12)
[2021-07-09 07:23] LABS: MANUAL DIFF FLAG NO
[2021-07-09 07:25] LABS: Basophils Absolute Auto 0.1 X10*3/uL (0.0-0.2); Basophils Percent Auto 0.9 % (0-2); Eosinophils Absolute Auto 0.2 X10*3/uL (0.0-0.4); Eosinophils Percent Auto 2.4 % (0-4); Hematocrit 31.5 % (37.0-47.0); Imm Gran Abs Auto 0.03 X10*3/uL (0.00-0.03); Imm Gran Pct Auto 0.4 % (0.0-0.4); Lymphocytes Absolute Auto 0.6 X10*3/uL (1.2-4.9); Lymphocytes Percent Auto 7.8 % (20-40); Mean Corpuscular HGB Conc 31.7 g/dl (31.0-35.0); Mean Corpuscular Hemoglobin 28.5 pg (27.0-33.0); Mean Corpuscular Volume 89.7 fL (80.0-98.0); Mean Platelet Volume 9.1 fL (9.4-12.3); Monocytes Absolute Auto 0.5 X10*3/uL (0.1-1.2); Monocytes Percent Auto 6.6 % (2-11); Neutrophils Absolute Auto 6.1 x10*3/uL (2.0-8.3); Neutrophils Percent Auto 81.9 % (45-73); Platelet Count 327 X10*3/uL (160-400); Red Blood Count 3.51 X10*6/uL (4.20-5.50); Red Cell Distribution Width 17.2 % (11.0-16.0); White Blood Count 7.4 X10*3/uL (4.8-10.8)
[2021-07-09 07:41] LABS: INTERNATIONAL NORM RATIO 2.4 (0.9-1.1); Prothrombin Time 27.9 SEC (9.9-13.0)
[2021-07-09 07:48] LABS: Anion Gap 12 (12-20); Blood Urea Nitrogen 16 mg/dL (9-16); Calcium 9.8 mg/dL (8.4-10.2); Carbon Dioxide 26 mmol/L (22-29); Chloride 106 mmol/L (96-108); Creatinine Clr Calc Pharmacy 64.3; Estimated Glomerular Filt Rate > 60; Glucose Random 102 mg/dL (60-115); Potassium 4.1 mmol/L (3.3-5.1); Sodium 140 mmol/L (135-145)
== END 2021-07-09 08:04 | disposition home or self-care (01) ==
PROVIDERS: Emergency Provider Internal Medicine; PCP Family Medicine
DX: R04.0 Epistaxis (principal); I48.20 Chronic atrial fibrillation, unspecified; Z95.4 Presence of other heart-valve replacement; Z79.01 Long term (current) use of anticoagulants; Z79.82 Long term (current) use of aspirin
CPT/HCPCS: 30901; 36415; 80048; 85025; 85610; 99283; 99284

== ENCOUNTER 2021-07-11 20:47 | Emergency (ER) | payer MEDICARE, SELFPAY ==
[2021-07-11 22:12] VITALS: BP 138/79; PULSE 101; RESP 18; TEMP 36.2; O2SAT 95; BMI 26.2
--- NOTE | 2021-07-11 23:12 | ED.GENADULT ---
HPI - General Adult General Chief complaint: General Medical Stated complaint: nasal packing to be removed Source: patient Mode of arrival: ambulatory Limitations: no limitations History of Present Illness HPI narrative: 75-year-old female presents to have left narrow packing removal that was placed on 07/09/2021 for epistaxis. Patient does not report any fevers, chills, purulence drainage or any other concerning symptoms. Onset (ago): day(s) (2) Location: face Severity scale (1-10): 1 Associated symptoms: denies other symptoms Related Data Home Medications Medication Instructions Recorded Confirmed fluticasone 500 mcg-salmeterol 50 ea INHALATION 09/30/20 06/28/21 mcg/dose blistr powdr for inhalation gabapentin 100 mg capsule 100 mg PO TID 09/30/20 06/28/21 montelukast 10 mg tablet 10 mg PO DAILY 09/30/20 06/28/21 aspirin 81 mg tablet,delayed 81 mg PO DAILY 12/16/20 06/28/21 release (Enteric Coated Aspirin) calcium with d PO 12/16/20 06/28/21 multivitamin PO 12/16/20 06/28/21 metolazone 2.5 mg tablet 2.5 mg PO DAILY PRN tab 06/03/21 06/28/21 Previous Rx's Medication Instructions Recorded magnesium oxide 200 mg PO DAILY #90 tab 12/01/20 warfarin 5 mg tablet 5 mg PO DAILY 90 Days #90 tab 01/05/21 bumetanide 2 mg tablet 2 mg PO DAILY 90 Days #90 tab 01/20/21 atorvastatin 80 mg tablet 80 mg PO BEDTIME 90 Days #90 tab 02/16/21 diltiazem HCl 180 mg 180 mg PO BID 90 Days #180 cap 02/16/21 capsule,extended release 24 hr (Cardizem CD) albuterol sulfate 2.5 mg (3 mL) INHALATION Q4H #540 03/30/21 cap omeprazole 20 mg capsule,delayed 20 mg PO DAILY #90 cap 03/30/21 release potassium chloride 20 mEq 60 meq PO DAILY 90 Days #270 cap 03/30/21 tablet,extended release levothyroxine 137 mcg tablet 137 mcg PO DAILY 90 Days #90 cap 05/20/21 miscellaneous medical supply #20 ea 05/20/21 miscellaneous medical supply #20 ea 05/20/21 miscellaneous medical supply #20 ea 05/20/21 amoxicillin 500 mg capsule 500 mg PO TID #20 cap 07/09/21 Allergies Allergy/AdvReac Type Severity Reaction Status Date / Time aspirin Allergy Unknown Sick Verified 07/11/21 22:12 codeine [CODEINE] AdvReac Intermediate NAUSEA & Verified 07/11/21 22:12 VOMITING ibuprofen [From ADVIL] AdvReac Intermediate NAUSEA & Verified 07/11/21 22:12 VOMITING Review of Systems Review of Systems: Constitutional: No Fever, No Chills ENT/Mouth: No Ear Pain, No Hoarseness, No sore throat Eyes: No Eye Pain, No Swelling, No Redness, No Foreign Body Cardiovascular: No Chest Pain, No SOB Respiratory: No Cough, No Dyspnea Gastrointestinal: No Nausea, No Vomiting, No Diarrhea, No abdominal Pain Genitourinary: No Dysuria, No Hematuria Musculoskeletal: No joint pain, No Myalgias, No Joint Swelling Skin: No Skin lacerations, No rash Neuro: No Weakness, No Numbness, No Paresthesias, No Loss of Consciousness, No Dizziness, No Headache Psych: No Anxiety/Panic, No Depression Heme/Lymph: no easy bruising, no Lymphadenopathy Endocrine: No Polyuria, No Polydipsia Yes all other systems are reviewed and are negative [facility] Past Medical History Attestation statement: The following information was validated with the patient. Source: old records reviewed Medical History (HFpEF) heart failure with preserved ejection fraction Asthma Chronic atrial fibrillation COPD (chronic obstructive pulmonary disease) COPD (chronic obstructive pulmonary disease) Exercise hypoxemia GERD (gastroesophageal reflux disease) Hyperlipidemia Hypothyroid Nocturnal hypoxemia Prosthetic valve dysfunction Surgical History History of carpal tunnel release History of colonoscopy History of hernia surgery History of hysterectomy History of mechanical aortic valve replacement (~2002) History of salpingo-oophorectomy Hx of abdominal surgery Family History Family History Mother No problems noted. Father Myocardial infarction CAD (coronary artery disease) Brother Myocardial infarction Brother Myocardial infarction Social History Social History Housing: Other (mobile home) Alcohol intake: never Patient Tobacco Use Status: Never used Tobacco Advance Directives: No Advance Directives Information Provided: No service: No Current occupational status: retired Physical Exam Vital Signs: Vital Signs: Last Vital Signs Temp 97.1 F 07/11/21 22:12 Pulse 101 H 07/11/21 22:12 Resp 18 07/11/21 22:12 BP 138/79 07/11/21 22:12 Pulse Ox 95 07/11/21 22:12 Body Mass Index 26.2 Appearance: Alert. Oriented X3. No acute distress. Eyes: Pupils equal, round and reactive to light. ENT: Pharynx normal. no epistaxis noted. No purulent drainage. No septal hematoma. Neck: Normal inspection. Neck supple. CVS: Normal heart rate and rhythm. Pulses normal. Respiratory: No respiratory distress. Breath sounds normal. Abdomen: Soft and nontender. Skin: Skin warm and dry. Normal skin color. Normal skin turgor. Extremities: No lower extremity edema. Gait well-balanced well coordinated. Neuro: No motor deficit. No sensory deficit. Cranial nerves 2-12 intact. Course Course Course Narrative: 75-year-old female presents for packing removal from the left naris after being treated for epistaxis. Packing removed without difficulty. No purulent drainage or abnormalities noted to the nares. Patient verbalized understanding of and agrees to plan of care discharge home. Medical Decision Making Differential Diagnosis Differential Diagnosis: Packing removal Medical Records Medical records reviewed: Yes I reviewed the patient's medical records. Discharge Plan Discharge Clinical Impression: Encounter for removal of nasal packing Patient Disposition: Home, Self-Care Instructions: Nosebleed (ED) Additional Instructions: you were evaluated for removal of nasal packing for a nose bleed. Please continue to take all medications as prescribed. Thank you for choosing this emergency department for evaluation. Please follow-up with primary care physician as needed. Return to the emergency department for any new, concerning, or worsening symptoms. Prescriptions: No Action magnesium oxide 200 mg magnesium tablet 200 mg PO DAILY Qty: 90 RF: 3 warfarin 5 mg tablet 5 mg PO DAILY 90 Days Qty: 90 RF: 1 bumetanide 2 mg tablet 2 mg PO DAILY 90 Days Qty: 90 RF: 5 diltiazem HCl [Cardizem CD] 180 mg capsule,extended release 24hr 180 mg PO BID 90 Days Qty: 180 RF: 3 atorvastatin 80 mg tablet 80 mg PO BEDTIME 90 Days Qty: 90 RF: 3 albuterol sulfate 2.5 mg /3 mL (0.083 %) solution for nebulization 2.5 mg inhalation Q4H Qty: 540 RF: 2 potassium chloride 20 mEq tablet extended release 60 meq PO DAILY 90 Days Qty: 270 RF: 1 omeprazole 20 mg capsule,delayed release(DR/EC) 20 mg PO DAILY Qty: 90 RF: 0 levothyroxine 137 mcg tablet 137 mcg PO DAILY 90 Days Qty: 90 RF: 3 amoxicillin 500 mg capsule 500 mg PO TID Qty: 20 RF: 0 (DME) miscellaneous medical supply Misc See Rx Instructions .ROUTE .MEDSUPPLY Qty: 20 RF: 6 (DME) miscellaneous medical supply Misc See Rx Instructions .ROUTE .MEDSUPPLY Qty: 20 RF: 6 (DME) miscellaneous medical supply Misc See Rx Instructions .ROUTE .MEDSUPPLY Qty: 20 RF: 0 multivitamin PO RF: 0 aspirin [Enteric Coated Aspirin] 81 mg tablet,delayed release (DR/EC) 81 mg PO DAILY RF: 0 calcium with d PO RF: 0 metolazone 2.5 mg tablet 2.5 mg PO DAILY PRNRF: 0 montelukast 10 mg tablet 10 mg PO DAILY RF: 0 gabapentin 100 mg capsule 100 mg PO TID RF: 0 fluticasone propion-salmeterol 500-50 mcg/dose blister with device inhalation RF: 0 Interventions: ED Discharge Assessment Last Done: 07/11/21 23:50 Discharge Date/Time: 07/11/21 23:51
== END 2021-07-11 23:51 | disposition home or self-care (01) ==
PROVIDERS: Emergency Provider Nurse Practitioner Family; PCP Family Medicine
DX: Z48.01 Encounter for change or removal of surgical wound dressing (principal); R04.0 Epistaxis
CPT/HCPCS: 99283

== ENCOUNTER → 2021-07-14 14:48 | Outpatient (BNVA) | payer MEDICARE, SELFPAY | PROVIDERS: PCP Family Medicine; Visit Provider Internal Medicine | DX: I48.20 Chronic atrial fibrillation, unspecified (principal); Z51.81 Encounter for therapeutic drug level monitoring; Z79.01 Long term (current) use of anticoagulants | CPT/HCPCS: Q3014 ==

== ENCOUNTER → 2021-07-20 15:04 | Outpatient (BNVA) | payer MEDICARE, SELFPAY | PROVIDERS: PCP Family Medicine; Visit Provider Internal Medicine | DX: J44.9 Chronic obstructive pulmonary disease, unspecified (principal); R09.02 Hypoxemia; G47.34 Idiopathic sleep related nonobstructive alveolar hypoventilation | CPT/HCPCS: 99212 ==

== ENCOUNTER → 2021-07-21 14:49 | Outpatient (BNVA) | payer MEDICARE, SELFPAY | PROVIDERS: PCP Family Medicine; Visit Provider Internal Medicine ==

== ENCOUNTER → 2021-07-28 11:38 | Outpatient (BNVA) | payer MEDICARE, SELFPAY | PROVIDERS: PCP Family Medicine; Visit Provider Internal Medicine ==

== ENCOUNTER → 2021-08-04 08:44 | Outpatient (BNVA) | payer MEDICARE, SELFPAY | PROVIDERS: PCP Family Medicine; Visit Provider Internal Medicine ==

== ENCOUNTER → 2021-08-11 12:44 | Outpatient (BNVA) | payer MEDICARE, SELFPAY | PROVIDERS: PCP Family Medicine; Visit Provider Internal Medicine ==

== ENCOUNTER → 2021-08-18 11:45 | Outpatient (BNVA) | payer MEDICARE, SELFPAY | PROVIDERS: PCP Family Medicine; Visit Provider Internal Medicine | DX: I48.20 Chronic atrial fibrillation, unspecified (principal); Z51.81 Encounter for therapeutic drug level monitoring; Z79.01 Long term (current) use of anticoagulants | CPT/HCPCS: Q3014 ==

== ENCOUNTER → 2021-08-25 13:49 | Outpatient (BNVA) | payer MEDICARE, SELFPAY | PROVIDERS: PCP Family Medicine; Visit Provider Internal Medicine | DX: I48.20 Chronic atrial fibrillation, unspecified (principal); Z51.81 Encounter for therapeutic drug level monitoring; Z79.01 Long term (current) use of anticoagulants | CPT/HCPCS: Q3014 ==

== ENCOUNTER → 2021-09-01 08:41 | Outpatient (BNVA) | payer MEDICARE, SELFPAY | PROVIDERS: PCP Family Medicine; Visit Provider Internal Medicine | DX: I48.20 Chronic atrial fibrillation, unspecified (principal); Z51.81 Encounter for therapeutic drug level monitoring; Z79.01 Long term (current) use of anticoagulants | CPT/HCPCS: Q3014 ==

== ENCOUNTER → 2021-09-08 15:00 | Outpatient (BNVA) | payer MEDICARE, SELFPAY | PROVIDERS: PCP Family Medicine; Visit Provider Internal Medicine | DX: I48.20 Chronic atrial fibrillation, unspecified (principal); Z51.81 Encounter for therapeutic drug level monitoring; Z79.01 Long term (current) use of anticoagulants | CPT/HCPCS: Q3014 ==

== ENCOUNTER → 2021-09-15 10:38 | Outpatient (BNVA) | payer MEDICARE, SELFPAY | PROVIDERS: PCP Family Medicine; Visit Provider Internal Medicine | DX: Z13.89 Encounter for screening for other disorder (principal) ==

== ENCOUNTER → 2021-09-22 10:14 | Outpatient (BNVA) | payer MEDICARE, SELFPAY | PROVIDERS: PCP Family Medicine; Visit Provider Internal Medicine | DX: I48.20 Chronic atrial fibrillation, unspecified (principal); Z51.81 Encounter for therapeutic drug level monitoring; Z79.01 Long term (current) use of anticoagulants | CPT/HCPCS: Q3014 ==

== ENCOUNTER 2021-09-22 10:32 | Outpatient (REF) | payer MEDICARE, SELFPAY ==
[2021-09-22 14:23] LABS: Free T4 (Free Thyroxine) 1.39 ng/dL (0.71-1.85); Thyroid Stimulating Hormone 3.95 uIU/mL (0.32-4.0)
[2021-09-24 02:16] LABS: Triiodothyronine T3 Total 67 ng/dL (76-181)
== END 2021-09-22 10:33 | disposition home or self-care (01) ==
LOC: HO.WFDLDS 10:32
PROVIDERS: Visit Provider Family Medicine
DX: E03.9 Hypothyroidism, unspecified (principal)
CPT/HCPCS: 36415; 84439; 84443; 84480

== ENCOUNTER → 2021-09-29 12:47 | Outpatient (BNVA) | payer MEDICARE, SELFPAY | PROVIDERS: PCP Family Medicine; Visit Provider Internal Medicine | DX: Z13.89 Encounter for screening for other disorder (principal) ==

== ENCOUNTER → 2021-10-06 08:22 | Outpatient (BNVA) | payer MEDICARE, SELFPAY | PROVIDERS: PCP Family Medicine; Visit Provider Internal Medicine | DX: Z13.89 Encounter for screening for other disorder (principal) ==

== ENCOUNTER → 2021-10-13 10:38 | Outpatient (BNVA) | payer MEDICARE, SELFPAY | PROVIDERS: PCP Family Medicine; Visit Provider Internal Medicine | DX: Z13.89 Encounter for screening for other disorder (principal) ==

== ENCOUNTER → 2021-10-20 08:27 | Outpatient (BNVA) | payer MEDICARE, SELFPAY | PROVIDERS: PCP Family Medicine; Visit Provider Internal Medicine | DX: Z13.89 Encounter for screening for other disorder (principal) ==

== ENCOUNTER → 2021-10-27 09:06 | Outpatient (BNVA) | payer MEDICARE, SELFPAY | PROVIDERS: PCP Family Medicine; Visit Provider Internal Medicine | DX: Z13.89 Encounter for screening for other disorder (principal) ==

== ENCOUNTER → 2021-11-03 09:55 | Outpatient (BNVA) | payer MEDICARE, SELFPAY | PROVIDERS: PCP Family Medicine; Visit Provider Internal Medicine | DX: Z13.89 Encounter for screening for other disorder (principal) ==

== ENCOUNTER → 2021-11-10 09:05 | Outpatient (BNVA) | payer MEDICARE, SELFPAY | PROVIDERS: PCP Family Medicine; Visit Provider Internal Medicine | DX: Z13.89 Encounter for screening for other disorder (principal) ==

== ENCOUNTER → 2021-11-17 08:42 | Outpatient (BNVA) | payer MEDICARE, SELFPAY | PROVIDERS: PCP Family Medicine; Visit Provider Internal Medicine | DX: Z13.89 Encounter for screening for other disorder (principal) ==

== ENCOUNTER → 2021-11-24 09:48 | Outpatient (BNVA) | payer MEDICARE, SELFPAY | PROVIDERS: PCP Family Medicine; Visit Provider Internal Medicine | DX: Z13.89 Encounter for screening for other disorder (principal) ==

== ENCOUNTER → 2021-11-25 15:41 | Outpatient (BNVA) | payer MEDICARE, SELFPAY | PROVIDERS: PCP Family Medicine; Visit Provider Internal Medicine | DX: J44.9 Chronic obstructive pulmonary disease, unspecified (principal); G47.34 Idiopathic sleep related nonobstructive alveolar hypoventilation; R09.02 Hypoxemia; Z79.899 Other long term (current) drug therapy; Z99.81 Dependence on supplemental oxygen | CPT/HCPCS: 99212 ==

== ENCOUNTER → 2021-12-01 09:00 | Outpatient (BNVA) | payer MEDICARE, SELFPAY | PROVIDERS: PCP Family Medicine; Visit Provider Internal Medicine | DX: Z13.89 Encounter for screening for other disorder (principal) ==

== ENCOUNTER → 2021-12-02 13:06 | Outpatient (BNVA) | payer MEDICARE, SELFPAY | PROVIDERS: PCP Family Medicine; Referring Provider Family Medicine; Visit Provider Internal Medicine Cardiovascular Disease | DX: I50.30 Unspecified diastolic (congestive) heart failure (principal); I48.20 Chronic atrial fibrillation, unspecified; T82.09XD Other mechanical complication of heart valve prosthesis, subsequent encounter | CPT/HCPCS: 93005; 99212 ==

== ENCOUNTER → 2021-12-08 10:44 | Outpatient (BNVA) | payer MEDICARE, SELFPAY | PROVIDERS: PCP Family Medicine; Visit Provider Internal Medicine | DX: Z13.89 Encounter for screening for other disorder (principal) ==

== ENCOUNTER → 2021-12-15 13:06 | Outpatient (BNVA) | payer MEDICARE, SELFPAY | PROVIDERS: PCP Family Medicine; Visit Provider Internal Medicine | DX: I48.20 Chronic atrial fibrillation, unspecified (principal); Z79.01 Long term (current) use of anticoagulants; Z51.81 Encounter for therapeutic drug level monitoring | CPT/HCPCS: 85610; 99211 ==

== ENCOUNTER → 2021-12-22 08:47 | Outpatient (BNVA) | payer MEDICARE, SELFPAY | PROVIDERS: PCP Family Medicine; Visit Provider Internal Medicine | DX: Z13.89 Encounter for screening for other disorder (principal) ==

== ENCOUNTER → 2021-12-29 08:48 | Outpatient (BNVA) | payer MEDICARE, SELFPAY | PROVIDERS: PCP Family Medicine; Visit Provider Internal Medicine | DX: Z79.01 Long term (current) use of anticoagulants (principal) ==

== ENCOUNTER → 2022-01-05 08:57 | Outpatient (BNVA) | payer MEDICARE, SELFPAY | PROVIDERS: PCP Family Medicine; Visit Provider Internal Medicine | DX: Z79.01 Long term (current) use of anticoagulants (principal) ==

== ENCOUNTER → 2022-01-12 09:20 | Outpatient (BNVA) | payer MEDICARE, SELFPAY | PROVIDERS: PCP Family Medicine; Visit Provider Internal Medicine | DX: Z79.01 Long term (current) use of anticoagulants (principal) ==

== ENCOUNTER → 2022-02-16 11:17 | Outpatient (BNVA) | payer MEDICARE, SELFPAY | PROVIDERS: PCP Family Medicine; Visit Provider Internal Medicine | DX: I48.20 Chronic atrial fibrillation, unspecified (principal); Z51.81 Encounter for therapeutic drug level monitoring; Z79.01 Long term (current) use of anticoagulants | CPT/HCPCS: 99211 ==

== ENCOUNTER 2022-03-21 09:34 | Outpatient (REF) | payer MEDICARE, SELFPAY ==
[2022-03-21 11:45] LABS: Anion Gap 12 (12-20); Blood Urea Nitrogen 17 mg/dL (9-16); Calcium 9.3 mg/dL (8.4-10.2); Carbon Dioxide 28 mmol/L (22-29); Chloride 104 mmol/L (96-108); Estimated Glomerular Filt Rate > 60; Glucose Random 84 mg/dL (60-115); Potassium 4.3 mmol/L (3.3-5.1); Sodium 140 mmol/L (135-145)
[2022-03-21 11:58] LABS: Free T4 (Free Thyroxine) 1.26 ng/dL (0.71-1.85); Thyroid Stimulating Hormone 1.09 uIU/mL (0.32-4.0)
[2022-03-22 21:56] LABS: Triiodothyronine T3 Total 70 ng/dL (76-181)
== END 2022-03-21 09:35 | disposition home or self-care (01) ==
LOC: HO.WFDLDS 09:34
PROVIDERS: PCP Family Medicine; Visit Provider Family Medicine
DX: Z00.00 Encounter for general adult medical examination without abnormal findings (principal); E03.9 Hypothyroidism, unspecified
CPT/HCPCS: 36415; 80048; 84439; 84443; 84480

== ENCOUNTER → 2022-03-25 13:51 | Outpatient (REF) | payer MEDICARE, SELFPAY ==
--- NOTE | 2022-03-25 13:54 | CA_ITS ---
Transthoracic Echocardiogram Patient (Last, First, Middle): Danielle Barrera A Gender: Female Date of : 1945 Age: 76 Procedure Date: 03/25/2022 Procedure Type: Transthoracic Echocardiogram Location: OP Height: 165.1 cm Weight: 71.22 kg BSA: 1.78 m2 Heart Rate: bpm [employer] Intern: [place] Referring MD: Darius Spicer MD Symptoms: T82.09XA - Other mechanical complication of heart valve p... Study Quality: Adequate ECG Rhythm: Atrial Fibrillation Conclusions: - The left ventricular systolic function is normal. The visually estimated ejection fraction is between 55-60%. - A mechanical prosthetic aortic valve is present. The prosthetic aortic valve appears to be functioning abnormally. The peak aortic gradient is 39 mmHg.The mean gradient is 22 mmHg. Acceleration time 90-95 milliseconds. Probable patient prosthesis mismatch. Findings Left Ventricle Normal left ventricular cavity size. There is normal left ventricular wall thickness. The left ventricular systolic function is normal. The visually estimated ejection fraction is between 55-60%. There is no evidence of regional wall motion abnormalities. There is paradoxical septal motion consistent with post-operative status. Diastolic function is indeterminate on the basis of available data. Right Ventricle Normal right ventricular cavity size. There is mildly decreased right ventricular systolic function. Atria Moderate biatrial enlargement. Aortic Valve A mechanical prosthetic aortic valve is present. The prosthetic aortic valve appears to be functioning abnormally. The peak aortic gradient is 39 mmHg.The mean gradient is 22 mmHg. Acceleration time 90-95 milliseconds. Probable patient prosthesis mismatch. No significant regurgitation. Mitral Valve There is moderate posterior mitral annular calcification. There is trace mitral valve regurgitation. There is no mitral valve stenosis. Pulmonic Valve The pulmonic valve is likely normal. Tricuspid Valve Normal tricuspid valve structure. There is mild tricuspid valve regurgitation. The pulmonary artery systolic pressure is normal. Great Vessels The asc aorta is normal in size. Venous The inferior vena cava is normal in size and collapses less than 50% with inspiration. Pericardium/Pleural There is no evidence of pericardial effusion. Prior Study Comparison No significant change compared to prior study dated: 05/17/2021. Measurements 2D Linear Measurements IVSd: 0.89 0.6-0.9/0.6-1.0 cm LVIDd: 5.47 3.9-5.3/4.2-5.9 cm LVIDd Index: 3.07 2.4-3.2/2.2-3.1 cm/m2 LVIDs: 4.00 2.0-3.6 cm LVPWd: 0.81 0.7-1.1 cm LA Diam: 4.70 2.7-3.8/3.0-4.0 cm LAIDs Index: 2.64 1.5-2.3 cm/m2 LV Mass: 213.13 67-162/88-224 g LV Mass Index: 119.74 43-95/49-115 g/m2 LVOT Diam: 1.70 3.0+(-)1.3 cm 2D Systolic Function EF 4C: 50.80 >55% Aortic Valve AoV Pk Chalo: 3.10 AoV Mn Chalo: 2.24 AoV VTI: 0.63 AoV Pk Grad: 39.00 Aov Mn Grad: 22.00 FRANCISCO Cont.VTI: 0.59 LVOT LVOT Pk Chalo: 0.86 LVOT Mn Chalo: 0.61 LVOT VTI: 0.17 LVOT Pk Grad: 3.00 LVOT Mn Grad: 2.00 LVOT Diam: 1.70 LVOT Area: 2.27 Right Ventricle TAPSE (mm): 13.80 TVS' Chalo: 11.20 Tricuspid Valve TR Pk Chalo: 2.51 TR Pk Grad: 25.00 RA Press: 8.00 RVSP: 33.00 Great Vessels Aorta Ao Asc: 3.60 2.1-3.4 cm Pulmonary Valve PV Pk Chalo: 0.84 Peak PV Grad: 3.00 Updated in Other Vendor System with Status of Final Collin Sharif MD electronically signed on 03/27/2022 12:39:02 PM with status of Final
== END ==
LOC: HO.CARD 13:51
PROVIDERS: PCP Family Medicine; Visit Provider Internal Medicine Cardiovascular Disease
DX: T82.09XA Other mechanical complication of heart valve prosthesis, initial encounter (principal)
CPT/HCPCS: 93306

== ENCOUNTER → 2022-04-27 12:03 | Outpatient (BNVA) | payer MEDICARE, SELFPAY | PROVIDERS: PCP Family Medicine; Visit Provider Internal Medicine | DX: I48.20 Chronic atrial fibrillation, unspecified (principal); Z79.01 Long term (current) use of anticoagulants; Z51.81 Encounter for therapeutic drug level monitoring | CPT/HCPCS: Q3014 ==

== ENCOUNTER 2022-05-02 13:40 | Outpatient (REF) | payer MEDICARE, SELFPAY ==
--- NOTE | ~2022-05-02 | XR_ITS ---
EXAMINATION: XR CHEST CLINICAL INFORMATION: J18.9 - Pneumonia, unspecified organism COMPARISON: Chest radiographs 04/04/2019, 11/10/2016 TECHNIQUE: 2 views of the chest were obtained. FINDINGS: There is mild hyperinflation similar to prior studies. There has been prior median sternotomy with aortic valve replacement. The cardiopericardial silhouette is mildly enlarged, similar to prior exam 2019. The vascularity appears normal. There are bilateral basilar effusions, slightly greater on right. Associated passive atelectasis is present at the bases. There is no air bronchogram or lobar segmental airspace consolidation appreciated. The hilar and mediastinal contours and bony structures are stable. XR/XR chest 2V IMPRESSION: -Prior valve replacement. Bilateral effusions, slightly greater on right. Vascularity unremarkable. -Bibasilar passive atelectasis. No lobar or segmental airspace consolidation.
[2022-05-02 15:02] LABS: Anion Gap 17 (12-20); Blood Urea Nitrogen 13 mg/dL (9-16); Carbon Dioxide 29 mmol/L (22-29); Chloride 100 mmol/L (96-108); Estimated Glomerular Filt Rate > 60; Glucose Random 84 mg/dL (60-115); Potassium 3.6 mmol/L (3.3-5.1); Sodium 142 mmol/L (135-145)
[2022-05-02 15:09] LABS: B Type Natriuretic Peptide 151 pg/mL (<100)
== END 2022-05-02 13:41 | disposition home or self-care (01) ==
LOC: HO.XRAY 13:40
PROVIDERS: PCP Family Medicine; Visit Provider Family Medicine
DX: Z00.00 Encounter for general adult medical examination without abnormal findings (principal); I50.30 Unspecified diastolic (congestive) heart failure; J18.9 Pneumonia, unspecified organism
CPT/HCPCS: 36415; 71046; 80048; 83880

== ENCOUNTER 2022-05-23 10:45 | Outpatient (REF) | payer MEDICARE, SELFPAY ==
[2022-05-23 14:34] LABS: Free T4 (Free Thyroxine) 1.25 ng/dL (0.71-1.85)
[2022-05-24 20:46] LABS: Triiodothyronine T3 Total 89 ng/dL (76-181)
== END 2022-05-23 10:46 | disposition home or self-care (01) ==
LOC: HO.WFDLDS 10:45
PROVIDERS: Visit Provider Family Medicine
DX: E03.9 Hypothyroidism, unspecified (principal)
CPT/HCPCS: 36415; 84439; 84443; 84480

== ENCOUNTER → 2022-05-26 15:50 | Outpatient (BNVA) | payer MEDICARE, SELFPAY | PROVIDERS: PCP Family Medicine; Visit Provider Internal Medicine | DX: J44.9 Chronic obstructive pulmonary disease, unspecified (principal); I48.20 Chronic atrial fibrillation, unspecified; I50.30 Unspecified diastolic (congestive) heart failure; J90 Pleural effusion, not elsewhere classified | CPT/HCPCS: 99212 ==

== ENCOUNTER 2022-06-07 16:06 | Outpatient (REF) | payer MEDICARE, SELFPAY ==
[2022-06-07 17:47] LABS: Anion Gap 17 (12-20); Blood Urea Nitrogen 15 mg/dL (9-16); Calcium 9.5 mg/dL (8.4-10.2); Carbon Dioxide 27 mmol/L (22-29); Chloride 103 mmol/L (96-108); Estimated Glomerular Filt Rate > 60; Glucose Random 90 mg/dL (60-115); Potassium 4.4 mmol/L (3.3-5.1); Sodium 143 mmol/L (135-145)
[2022-06-07 17:51] LABS: B Type Natriuretic Peptide 144 pg/mL (<100)
== END 2022-06-07 16:07 | disposition home or self-care (01) ==
LOC: HO.LAB 16:06
PROVIDERS: PCP Family Medicine; Visit Provider Internal Medicine Cardiovascular Disease
DX: I50.30 Unspecified diastolic (congestive) heart failure (principal); I48.20 Chronic atrial fibrillation, unspecified; T82.09XA Other mechanical complication of heart valve prosthesis, initial encounter
CPT/HCPCS: 36415; 80048; 83880; 99212

== ENCOUNTER 2022-06-13 14:09 | Outpatient (REF) | payer MEDICARE, SELFPAY ==
--- NOTE | ~2022-06-13 | MM_ITS ---
EXAMINATION: MM SCREENING DIGITAL BREAST TOMOSYNTHESIS, BILATERAL CLINICAL INFORMATION: Screening. Asymptomatic. The lifetime risk of breast cancer based on the Tyrer-Cuzick Model is 2%. COMPARISON: Mammography: 06/10/2021, 06/04/2021, 05/22/2020, 05/17/2019 TECHNIQUE: Digital breast tomosynthesis is performed in both the craniocaudal and mediolateral oblique views along with computer-aided detection (CAD). Synthesized 2D images are generated from the tomosynthesis. Additional exaggerated left CC view is provided. FINDINGS: There are scattered areas of fibroglandular density (ACR BI-RADS breast composition Category b). There are no significant masses, abnormal calcifications, or other abnormalities. No developing density or architectural abnormality. No significant changes from prior studies. The axilla are unremarkable. MM/MM tomosynthesis screening BI IMPRESSION: No mammographic evidence of malignancy. ASSESSMENT: BI-RADS 1: Negative RECOMMENDATION: Routine annual mammography screening. This patient's information was entered into a reminder system with a target due date for their next mammogram.
== END 2022-06-13 14:10 | disposition home or self-care (01) ==
LOC: HO.MAMMO 14:09
PROVIDERS: PCP Family Medicine; Visit Provider Family Medicine
DX: Z12.31 Encounter for screening mammogram for malignant neoplasm of breast (principal)
CPT/HCPCS: 77063; 77067

== ENCOUNTER → 2022-08-03 10:37 | Outpatient (BNVA) | payer MEDICARE, SELFPAY | PROVIDERS: PCP Family Medicine; Visit Provider Internal Medicine | DX: Z79.01 Long term (current) use of anticoagulants (principal) ==

== ENCOUNTER → 2022-08-05 08:47 | Outpatient (BNVA) | payer MEDICARE, SELFPAY | PROVIDERS: PCP Family Medicine; Visit Provider Internal Medicine | DX: Z79.01 Long term (current) use of anticoagulants (principal) ==

== ENCOUNTER 2022-08-09 09:06 | Outpatient (REF) | payer MEDICARE, SELFPAY ==
[2022-08-09 11:11] LABS: MANUAL DIFF FLAG NO
[2022-08-09 11:19] LABS: Appearance Urine Clear; Color Urine Yellow; Glucose Urine UA Negative (Negative); Leukocyte Esterase Urine Small (1+) (Negative); Nitrite Urine Negative (Negative); PH 5.5 (5.0-9.0); UMIC TRIGGER UA YES; Urine Blood Negative (Negative); Urine Ketones Negative (Negative); Urine Protein Negative (Neg-Trace)
[2022-08-09 11:26] LABS: Bacteria Urine Trace (None Seen); Hyaline Casts Urine 0-2 /LPF (0-2)
[2022-08-09 11:31] LABS: Basophils Absolute Auto 0.1 X10*3/uL (0.0-0.2); Eosinophils Absolute Auto 0.3 X10*3/uL (0.0-0.4); Eosinophils Percent Auto 3.2 % (0-4); Hematocrit 35.4 % (37.0-47.0); Hemoglobin 11.1 g/dl (12.0-16.0); Imm Gran Abs Auto 0.04 X10*3/uL (0.00-0.03); Imm Gran Pct Auto 0.5 % (0.0-0.4); Lymphocytes Absolute Auto 1.1 X10*3/uL (1.2-4.9); Lymphocytes Percent Auto 13.2 % (20-40); Mean Corpuscular HGB Conc 31.4 g/dl (31.0-35.0); Mean Corpuscular Hemoglobin 27.8 pg (27.0-33.0); Mean Corpuscular Volume 88.5 fL (80.0-98.0); Mean Platelet Volume 9.4 fL (9.4-12.3); Monocytes Absolute Auto 0.7 X10*3/uL (0.1-1.2); Monocytes Percent Auto 8.4 % (2-11); Neutrophils Absolute Auto 6.1 x10*3/uL (2.0-8.3); Neutrophils Percent Auto 73.7 % (45-73); Platelet Count 413 X10*3/uL (160-400); Red Cell Distribution Width 14.8 % (11.0-16.0); White Blood Count 8.2 X10*3/uL (4.8-10.8)
[2022-08-09 12:07] LABS: Alanine Aminotransferase 21 U/L (0-31); Albumin Level 3.8 g/dL (3.5-5.0); Alkaline Phosphatase 50 U/L (39-117); Anion Gap 12 (12-20); Aspartate Amino Transferase 25 U/L (5-31); Bilirubin Total 0.4 mg/dL (0.0-1.0); Blood Urea Nitrogen 13 mg/dL (9-16); Carbon Dioxide 30 mmol/L (22-29); Chloride 101 mmol/L (96-108); Cholesterol 162 mg/dL; Estimated Glomerular Filt Rate > 60; Glucose Fasting 101 mg/dL (60-99); HDL Cholesterol 49 mg/dL; LDL Cholesterol Calculated 99 mg/dl; Potassium 3.6 mmol/L (3.3-5.1); Sodium 139 mmol/L (135-145); Total Protein 6.7 g/dL (6.5-8.0); Triglycerides 70 mg/dL
== END 2022-08-09 09:07 | disposition home or self-care (01) ==
LOC: HO.WFDLDS 09:06
PROVIDERS: Visit Provider Family Medicine
DX: Z00.00 Encounter for general adult medical examination without abnormal findings (principal)
CPT/HCPCS: 36415; 80053; 80061; 81001; 85025

== ENCOUNTER → 2022-08-10 12:01 | Outpatient (BNVA) | payer MEDICARE, SELFPAY | PROVIDERS: PCP Family Medicine; Visit Provider Internal Medicine | DX: Z79.01 Long term (current) use of anticoagulants (principal) ==

== ENCOUNTER → 2022-08-17 13:00 | Outpatient (BNVA) | payer MEDICARE, SELFPAY | PROVIDERS: PCP Family Medicine; Visit Provider Internal Medicine | DX: Z79.01 Long term (current) use of anticoagulants (principal) ==

== ENCOUNTER → 2022-08-18 09:24 | Outpatient (BNVA) | payer MEDICARE, SELFPAY | PROVIDERS: PCP Family Medicine; Referring Provider Family Medicine; Visit Provider Internal Medicine Cardiovascular Disease | DX: I50.30 Unspecified diastolic (congestive) heart failure (principal); I48.20 Chronic atrial fibrillation, unspecified; T82.09XA Other mechanical complication of heart valve prosthesis, initial encounter; Z79.01 Long term (current) use of anticoagulants; Z79.899 Other long term (current) drug therapy | CPT/HCPCS: 99212 ==

== ENCOUNTER → 2022-08-23 14:02 | Outpatient (BNVA) | payer MEDICARE, SELFPAY | PROVIDERS: PCP Family Medicine; Visit Provider Physician Assistant | DX: Z12.11 Encounter for screening for malignant neoplasm of colon (principal); R19.5 Other fecal abnormalities; I48.20 Chronic atrial fibrillation, unspecified; J44.9 Chronic obstructive pulmonary disease, unspecified; Z93.3 Colostomy status; Z79.01 Long term (current) use of anticoagulants | CPT/HCPCS: 99212 ==

== ENCOUNTER → 2022-08-24 13:53 | Outpatient (BNVA) | payer MEDICARE, SELFPAY | PROVIDERS: PCP Family Medicine; Visit Provider Internal Medicine | DX: Z79.01 Long term (current) use of anticoagulants (principal) ==

== ENCOUNTER → 2022-08-30 15:03 | Outpatient (BNVA) | payer MEDICARE, SELFPAY | PROVIDERS: PCP Family Medicine; Visit Provider Internal Medicine | DX: J44.9 Chronic obstructive pulmonary disease, unspecified (principal); G47.34 Idiopathic sleep related nonobstructive alveolar hypoventilation; R09.02 Hypoxemia; I50.30 Unspecified diastolic (congestive) heart failure | CPT/HCPCS: 99212 ==

== ENCOUNTER → 2022-08-31 09:53 | Outpatient (BNVA) | payer MEDICARE, SELFPAY | PROVIDERS: PCP Family Medicine; Visit Provider Internal Medicine | DX: Z79.01 Long term (current) use of anticoagulants (principal) ==

== ENCOUNTER → 2022-09-07 12:56 | Outpatient (BNVA) | payer MEDICARE, SELFPAY | PROVIDERS: PCP Internal Medicine Cardiovascular Disease; Visit Provider Internal Medicine | DX: Z79.01 Long term (current) use of anticoagulants (principal) ==

== ENCOUNTER → 2022-09-14 08:37 | Outpatient (BNVA) | payer MEDICARE, SELFPAY | PROVIDERS: PCP Internal Medicine Cardiovascular Disease; Visit Provider Internal Medicine | DX: Z79.01 Long term (current) use of anticoagulants (principal) ==

== ENCOUNTER → 2022-09-21 14:19 | Outpatient (BNVA) | payer MEDICARE, SELFPAY | PROVIDERS: PCP Internal Medicine Cardiovascular Disease; Visit Provider Internal Medicine | DX: Z79.01 Long term (current) use of anticoagulants (principal) ==

== ENCOUNTER → 2022-09-28 12:00 | Outpatient (BNVA) | payer MEDICARE, SELFPAY | PROVIDERS: PCP Internal Medicine Cardiovascular Disease; Visit Provider Internal Medicine | DX: Z79.01 Long term (current) use of anticoagulants (principal) ==

== ENCOUNTER → 2022-10-05 09:30 | Outpatient (BNVA) | payer MEDICARE, SELFPAY | PROVIDERS: PCP Family Medicine; Visit Provider Internal Medicine | DX: Z79.01 Long term (current) use of anticoagulants (principal) ==

== ENCOUNTER → 2022-10-11 09:25 | Outpatient (BNVA) | payer MEDICARE, SELFPAY | PROVIDERS: PCP Family Medicine; Visit Provider Internal Medicine | DX: Z79.01 Long term (current) use of anticoagulants (principal) ==

== ENCOUNTER → 2022-10-14 15:47 | Outpatient (BNVA) | payer MEDICARE, SELFPAY | PROVIDERS: PCP Family Medicine; Visit Provider Internal Medicine | DX: Z79.01 Long term (current) use of anticoagulants (principal) ==

== ENCOUNTER → 2022-10-19 08:18 | Outpatient (BNVA) | payer MEDICARE, SELFPAY | PROVIDERS: PCP Family Medicine; Visit Provider Internal Medicine | DX: Z79.01 Long term (current) use of anticoagulants (principal) ==

== ENCOUNTER → 2022-10-20 09:05 | Outpatient (BNVA) | payer MEDICARE, SELFPAY | PROVIDERS: PCP Family Medicine; Visit Provider Internal Medicine | DX: Z79.01 Long term (current) use of anticoagulants (principal) ==

== ENCOUNTER → 2022-10-26 08:40 | Outpatient (BNVA) | payer MEDICARE, SELFPAY | PROVIDERS: PCP Family Medicine; Visit Provider Internal Medicine | DX: Z79.01 Long term (current) use of anticoagulants (principal) ==

== ENCOUNTER → 2022-11-02 13:40 | Outpatient (BNVA) | payer MEDICARE, SELFPAY | PROVIDERS: PCP Family Medicine; Visit Provider Internal Medicine | DX: Z79.01 Long term (current) use of anticoagulants (principal) ==

== ENCOUNTER → 2022-11-09 08:50 | Outpatient (BNVA) | payer MEDICARE, SELFPAY | PROVIDERS: PCP Family Medicine; Visit Provider Internal Medicine | DX: Z79.01 Long term (current) use of anticoagulants (principal) ==

== ENCOUNTER → 2022-11-16 09:00 | Outpatient (BNVA) | payer MEDICARE, SELFPAY | PROVIDERS: PCP Family Medicine; Visit Provider Internal Medicine ==

== ENCOUNTER → 2022-11-23 14:30 | Outpatient (BNVA) | payer MEDICARE, SELFPAY | PROVIDERS: PCP Family Medicine; Visit Provider Internal Medicine ==

== ENCOUNTER → 2022-11-30 10:44 | Outpatient (BNVA) | payer MEDICARE, SELFPAY | PROVIDERS: PCP Family Medicine; Visit Provider Internal Medicine ==

== ENCOUNTER → 2022-12-07 11:53 | Outpatient (BNVA) | payer MEDICARE, SELFPAY | PROVIDERS: PCP Family Medicine; Visit Provider Internal Medicine ==

== ENCOUNTER → 2022-12-14 14:15 | Outpatient (BNVA) | payer MEDICARE, SELFPAY | PROVIDERS: PCP Family Medicine; Visit Provider Internal Medicine ==

== ENCOUNTER → 2022-12-21 13:02 | Outpatient (BNVA) | payer MEDICARE, SELFPAY | PROVIDERS: PCP Family Medicine; Visit Provider Internal Medicine | DX: I48.20 Chronic atrial fibrillation, unspecified (principal); Z79.01 Long term (current) use of anticoagulants; Z51.81 Encounter for therapeutic drug level monitoring | CPT/HCPCS: 85610; 99211 ==

== ENCOUNTER → 2022-12-28 10:12 | Outpatient (BNVA) | payer MEDICARE, SELFPAY | PROVIDERS: PCP Family Medicine; Visit Provider Internal Medicine ==

== ENCOUNTER → 2023-01-04 12:02 | Outpatient (BNVA) | payer MEDICARE, SELFPAY | PROVIDERS: PCP Family Medicine; Visit Provider Internal Medicine ==

== ENCOUNTER → 2023-01-11 08:36 | Outpatient (BNVA) | payer MEDICARE, SELFPAY | PROVIDERS: PCP Family Medicine; Visit Provider Internal Medicine ==

== ENCOUNTER → 2023-01-12 09:08 | Outpatient (BNVA) | payer MEDICARE, SELFPAY | PROVIDERS: PCP Family Medicine; Visit Provider Internal Medicine ==

== ENCOUNTER → 2023-01-18 11:39 | Outpatient (BNVA) | payer MEDICARE, SELFPAY | PROVIDERS: PCP Family Medicine; Visit Provider Internal Medicine ==

== ENCOUNTER → 2023-01-19 08:59 | Outpatient (BNVA) | payer MEDICARE, SELFPAY | PROVIDERS: PCP Family Medicine; Referring Provider Family Medicine; Visit Provider Internal Medicine Cardiovascular Disease | DX: I50.30 Unspecified diastolic (congestive) heart failure (principal); I48.20 Chronic atrial fibrillation, unspecified; T82.09XD Other mechanical complication of heart valve prosthesis, subsequent encounter | CPT/HCPCS: 93005; 99212 ==

== ENCOUNTER → 2023-01-25 10:55 | Outpatient (BNVA) | payer MEDICARE, SELFPAY | PROVIDERS: PCP Family Medicine; Visit Provider Internal Medicine ==

== ENCOUNTER → 2023-02-01 08:55 | Outpatient (BNVA) | payer MEDICARE, SELFPAY | PROVIDERS: PCP Family Medicine; Visit Provider Internal Medicine ==

== ENCOUNTER → 2023-02-08 14:27 | Outpatient (BNVA) | payer MEDICARE, SELFPAY | PROVIDERS: PCP Family Medicine; Visit Provider Internal Medicine ==

== ENCOUNTER → 2023-02-15 13:39 | Outpatient (BNVA) | payer MEDICARE, SELFPAY | PROVIDERS: PCP Family Medicine; Visit Provider Internal Medicine ==

== ENCOUNTER 2023-02-21 13:49 | Outpatient (AMB) | payer MEDICARE, SELFPAY ==
[2023-02-21 14:25] VITALS: BP 110/60; PULSE 85; O2SAT 97; BMI 27.3
--- NOTE | 2023-02-21 14:25 | A.OFFVIS_ITS ---
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 Allergies aspirin Allergy (Unknown, Verified 02/21/23 14:47) Sick codeine [CODEINE] Adverse Reaction (Intermediate, Verified 02/21/23 14:47) NAUSEA & VOMITING ibuprofen [From ADVIL] Adverse Reaction (Intermediate, Verified 02/21/23 14:47) NAUSEA & VOMITING Medication List - Last Reconciled 02/21/23 by Gretel Dorman MD albuterol sulfate 2.5 mg (3 mL) inhalation Q4H albuterol sulfate 90 mcg/actuation (Ventolin HFA) 2 puffs inhalation Q4-6H PRN 30 days aspirin (Enteric Coated Aspirin) 81 mg PO DAILY atorvastatin 80 mg PO BEDTIME [calcium with d PO] diltiazem HCl (Cardizem CD) 180 mg PO BID fluticasone propion-salmeterol 500-50 mcg/dose 1 inh inhalation BID 30 days fluticasone propionate 50 mcg/actuation (Flonase Allergy Relief) 1 spray intranasal Q12H 30 days levothyroxine 137 mcg PO DAILY 90 days magnesium oxide 200 mg PO DAILY miscellaneous medical supply Ostomy SafenSimple No-Sting Skin Barrier Film, As directed, 30 day supply miscellaneous medical supply Xpro Ostomy Pouch, As directed, One month supply miscellaneous medical supply Ostomy Skin Barrier Ring, 1/16 inch thickness, As directed, 1 month Supply montelukast 10 mg PO DAILY [multivitamin PO] omeprazole 20 mg PO DAILY 90 days potassium chloride ER 60 mEq (3 x 20 mEq) PO DAILY 90 days tiotropium bromide (Spiriva with HandiHaler) 1 cap inhalation DAILY 30 days torsemide 40 mg (2 x 20 mg) PO DAILY 90 days warfarin 5 mg See Protocol PO DAILY 90 days Do you need a note to return to daycare/school/sports/work: No HPI COPD HPI Details 77 YEARS OLD VERY PLEASANT FEMALE IS HERE FOR FOLLOW-UP AFTER 4 MONTHS FOR HER COPD/RESPIRATORY FAILURE. SHE HAS MILD COUGH ONCE IN A WHILE, HAS HAD NO BOUTS OF WHEEZING. GETS SHORT OF BREATH ON WALKING AND CLIMBING STAIRS, BUT REMAINS FAIRLY COMFORTABLE AT HOME. USES HER INHALERS REGULARLY. AND USES THE RESCUE INHALER( VENTOLIN) ONLY ONCE IN A WHILE. [facility] Medical History (Updated 02/21/23 @ 14:56 by Gretel Dorman MD) (HFpEF) heart failure with preserved ejection fraction Allergic rhinitis Asthma Chronic atrial fibrillation COPD (chronic obstructive pulmonary disease) COPD (chronic obstructive pulmonary disease) Exercise hypoxemia GERD (gastroesophageal reflux disease) Hyperlipidemia Hypothyroid Nocturnal hypoxemia Nocturnal hypoxemia Pleural effusion Prosthetic valve dysfunction Surgical History History of carpal tunnel release History of colonoscopy History of hernia surgery History of hysterectomy History of mechanical aortic valve replacement (~2002) History of salpingo-oophorectomy Hx of abdominal surgery Family History Mother No problems noted. Father Myocardial infarction CAD (coronary artery disease) Brother Myocardial infarction Brother Myocardial infarction Social History Housing: Other Alcohol intake: never Patient Tobacco Use Status: Never used Tobacco e-Cigarette/Vaping Use: Never Used Second Hand Smoke Exposure: No service: No Current occupational status: retired Current occupational exposures/hazards: No Cognitive needs: No Hearing needs: No Vision needs: No Review of Systems Const All systems reviewed & are unremarkable except as noted in HPI and below Eyes Reports no additional complaints ENT Reports no additional complaints Card Denies chest pain, Reports irregular heart rhythm, Reports leg edema (Mild) and Reports dyspnea on exertion Resp Reports as per HPI, Denies cough, Reports dyspnea on exertion and Denies wheezing GI Reports no additional complaints Reports no additional complaints Skin/Breast Reports dry skin Neuro Reports no additional complaints Psych Reports no additional complaints Aller/Immun Denies wheezing Physical Exam Vital Signs: Last Vital Signs Pulse 85 02/21/23 14:25 BP 110/60 02/21/23 14:25 Pulse Ox 97 02/21/23 14:25 Oxygen Delivery Method Nasal Cannula 02/21/23 14:25 Oxygen Flow Rate 2 02/21/23 14:25 BMI result Body Mass Index 27.3 Const General: comfortable (But appears very weak), no acute distress, alert and awake Orientation/consciousness: patient oriented x3 HEENT Head: Yes normal to inspection General nose exam: No nasal polyps present and No nasal discharge present Face and sinus: Yes sinuses nontender Mouth: oropharynx normal Throat: Yes posterior oropharynx normal Eyes General: appearance normal, both eyes and all related structures Neck Neck: Yes normal visual inspection, Yes no lymphadenopathy, Yes trachea midline and Yes no JVD Thyroid: Thyroid normal Chest Chest palpation & inspection: normal inspection of the chest (Midline scar from previous open heart surgery for aortic valve replacement), normal palpation of entire chest wall and no tenderness Resp Other: Percussion note is resonant, breath sounds are very distant on both sides with prolonged expiratory phase. No wheezes rhonchi or crepitations are heard. Cardio Palpation: normal PMI Rate: regular rate Rhythm: regular rhythm Heart sounds: Clicking heart sound present (Metallic heart sounds), no gallops and no murmurs GI Palpation (GI): Soft to palpation, nontender, No hepatosplenomegaly present, no masses and Other GI palpation findings present (Colostomy bag in the left upper quadrant,a few areas of ventral herniation) Auscultation: normal bowel sounds Back/Spine/Pelvis Thoracic/Lumbar Spine: thoracic and lumbar spine normal to inspection and thoraco-lumbar ROM limited Skin General skin exam: no rashes or lesions noted and dry skin Neuro General: patient oriented x3 and no focal motor deficits Cranial nerves: Yes CN's II-XII intact bilaterally Extrem General: Yes normal to inspection, Yes no calf tenderness and Yes edema (1+ edema around the ankles) Psych Appearance: grossly normal and well kempt Speech and movement: Normal speech and movement present Assessment & Plan Assessment & Plan (1) COPD (chronic obstructive pulmonary disease): Comment: PATIENT DOES HAVE MODERATELY SEVERE CHRONIC OBSTRUCTIVE PULMONARY DISORDER, CURRENTLY STABLE. TX: ADVAIR 500-51 INHALATION B.I.D. SPIRIVA HANDIHALER 1 INHALATION DAILY AND VENTOLIN 2 PUFFS Q 4-6 HOURS P.R.N.. Code(s): J44.9 - Chronic obstructive pulmonary disease, unspecified (2) Exercise hypoxemia: Comment: She was found to have hypoxemia on minimal walking. She does have the portable unit which is light weight and she can carry it along easily . Still does not take it along with her when she goes out to the stores. I stress that she should take the portable cylinder with her, all the times that she goes outdoors . Code(s): R09.02 - Hypoxemia (3) Nocturnal hypoxemia: Comment: Patient has nocturnal hypoxemia and uses oxygen 2 L/minute during sleep. Patient also using O2 2 L/minute , during the daytime. Code(s): G47.34 - Idiopathic sleep related nonobstructive alveolar hypoventilation (4) Allergic rhinitis: Comment: Patient has ongoing chronic allergic rhinitis, which is well controlled with current medical regimen. MONTELUKAST 10 MG DAILY. FLONASE 2 SPRAY EACH NOSTRIL DAILY. Code(s): J30.9 - Allergic rhinitis, unspecified Coding Level of Care Code Est Pt Level 4 (14355) Diagnoses COPD (chronic obstructive pulmonary disease) J44.9 Exercise hypoxemia R09.02 Nocturnal hypoxemia G47.34 Allergic rhinitis J30.9
== END 2023-02-21 14:48 | disposition home or self-care (01) ==
PROVIDERS: PCP Family Medicine; Visit Provider Internal Medicine
DX: J44.9 Chronic obstructive pulmonary disease, unspecified (principal); R09.02 Hypoxemia; G47.34 Idiopathic sleep related nonobstructive alveolar hypoventilation; J30.9 Allergic rhinitis, unspecified
CPT/HCPCS: 99214

== ENCOUNTER → 2023-02-21 13:49 | Outpatient (BNVA) | payer MEDICARE, SELFPAY | PROVIDERS: PCP Family Medicine; Visit Provider Internal Medicine | DX: J44.9 Chronic obstructive pulmonary disease, unspecified (principal); J30.9 Allergic rhinitis, unspecified; G47.34 Idiopathic sleep related nonobstructive alveolar hypoventilation; R09.02 Hypoxemia; Z79.899 Other long term (current) drug therapy; Z99.81 Dependence on supplemental oxygen | CPT/HCPCS: 99212 ==

== ENCOUNTER → 2023-02-22 10:46 | Outpatient (BNVA) | payer MEDICARE, SELFPAY | PROVIDERS: PCP Family Medicine; Visit Provider Internal Medicine ==

== ENCOUNTER → 2023-03-01 09:29 | Outpatient (BNVA) | payer MEDICARE, SELFPAY | PROVIDERS: PCP Family Medicine; Visit Provider Internal Medicine ==

== ENCOUNTER → 2023-03-08 09:02 | Outpatient (BNVA) | payer MEDICARE, SELFPAY | PROVIDERS: PCP Family Medicine; Visit Provider Internal Medicine ==

== ENCOUNTER → 2023-03-15 10:31 | Outpatient (BNVA) | payer MEDICARE, SELFPAY | PROVIDERS: PCP Family Medicine; Visit Provider Internal Medicine ==

== ENCOUNTER → 2023-03-22 09:31 | Outpatient (BNVA) | payer MEDICARE, SELFPAY | PROVIDERS: PCP Family Medicine; Visit Provider Internal Medicine ==

== ENCOUNTER → 2023-03-29 10:05 | Outpatient (BNVA) | payer MEDICARE, SELFPAY | PROVIDERS: PCP Family Medicine; Visit Provider Internal Medicine ==

== ENCOUNTER → 2023-04-05 09:47 | Outpatient (BNVA) | payer MEDICARE, SELFPAY | PROVIDERS: PCP Family Medicine; Visit Provider Internal Medicine ==

== ENCOUNTER → 2023-04-12 08:31 | Outpatient (BNVA) | payer MEDICARE, SELFPAY | PROVIDERS: PCP Family Medicine; Visit Provider Internal Medicine ==

== ENCOUNTER → 2023-04-19 08:44 | Outpatient (BNVA) | payer MEDICARE, SELFPAY | PROVIDERS: PCP Family Medicine; Visit Provider Internal Medicine ==

== ENCOUNTER → 2023-04-26 12:06 | Outpatient (BNVA) | payer MEDICARE, SELFPAY | PROVIDERS: PCP Family Medicine; Visit Provider Internal Medicine ==

== ENCOUNTER → 2023-05-03 11:07 | Outpatient (BNVA) | payer MEDICARE, SELFPAY | PROVIDERS: PCP Family Medicine; Visit Provider Internal Medicine ==

== ENCOUNTER → 2023-05-08 11:11 | Outpatient (BNVA) | payer MEDICARE, SELFPAY | PROVIDERS: PCP Family Medicine; Visit Provider Internal Medicine ==

== ENCOUNTER → 2023-05-17 11:39 | Outpatient (BNVA) | payer MEDICARE, SELFPAY | PROVIDERS: PCP Family Medicine; Visit Provider Internal Medicine ==

== ENCOUNTER → 2023-05-24 09:41 | Outpatient (BNVA) | payer MEDICARE, SELFPAY | PROVIDERS: PCP Family Medicine; Visit Provider Internal Medicine ==

== ENCOUNTER → 2023-05-31 09:38 | Outpatient (BNVA) | payer MEDICARE, SELFPAY | PROVIDERS: PCP Family Medicine; Visit Provider Internal Medicine ==

== ENCOUNTER → 2023-06-07 09:14 | Outpatient (BNVA) | payer MEDICARE, SELFPAY | PROVIDERS: PCP Family Medicine; Visit Provider Internal Medicine ==

== ENCOUNTER → 2023-06-14 09:33 | Outpatient (BNVA) | payer MEDICARE, SELFPAY | PROVIDERS: PCP Family Medicine; Visit Provider Internal Medicine ==

== ENCOUNTER 2023-06-20 12:12 | Outpatient (REF) | payer MEDICARE, SELFPAY | END 2023-06-20 12:13 | disposition home or self-care (01) | LOC: HO.MAMMO 12:12 | PROVIDERS: PCP Family Medicine; Visit Provider Family Medicine | DX: Z12.31 Encounter for screening mammogram for malignant neoplasm of breast (principal) | CPT/HCPCS: 77063; 77067 ==

== ENCOUNTER → 2023-06-20 12:30 | Outpatient (BNV) | payer MEDICARE, SELFPAY | PROVIDERS: PCP Family Medicine; Visit Provider Radiology Diagnostic Radiology | DX: Z12.31 Encounter for screening mammogram for malignant neoplasm of breast (principal) | CPT/HCPCS: 77063; 77067 ==

== ENCOUNTER → 2023-06-21 08:27 | Outpatient (BNVA) | payer MEDICARE, SELFPAY | PROVIDERS: PCP Family Medicine; Visit Provider Internal Medicine ==

== ENCOUNTER → 2023-06-28 13:53 | Outpatient (BNVA) | payer MEDICARE, SELFPAY | PROVIDERS: PCP Family Medicine; Visit Provider Internal Medicine ==

== ENCOUNTER → 2023-07-10 12:29 | Outpatient (BNVA) | payer MEDICARE, SELFPAY | PROVIDERS: PCP Family Medicine; Visit Provider Internal Medicine ==

== ENCOUNTER → 2023-07-13 11:56 | Outpatient (BNVA) | payer MEDICARE, SELFPAY | PROVIDERS: PCP Family Medicine; Visit Provider Internal Medicine ==

== ENCOUNTER → 2023-07-19 09:31 | Outpatient (BNVA) | payer MEDICARE, SELFPAY | PROVIDERS: PCP Family Medicine; Visit Provider Internal Medicine ==

== ENCOUNTER → 2023-07-26 10:29 | Outpatient (BNVA) | payer MEDICARE, SELFPAY | PROVIDERS: PCP Family Medicine; Visit Provider Internal Medicine ==

== ENCOUNTER → 2023-08-02 10:55 | Outpatient (BNVA) | payer MEDICARE, SELFPAY | PROVIDERS: PCP Family Medicine; Visit Provider Internal Medicine ==

== ENCOUNTER → 2023-08-09 09:27 | Outpatient (BNVA) | payer MEDICARE, SELFPAY | PROVIDERS: PCP Family Medicine; Visit Provider Internal Medicine ==

== ENCOUNTER → 2023-08-16 10:04 | Outpatient (BNVA) | payer MEDICARE, SELFPAY | PROVIDERS: PCP Family Medicine; Visit Provider Internal Medicine ==

== ENCOUNTER → 2023-08-23 09:39 | Outpatient (BNVA) | payer MEDICARE, SELFPAY | PROVIDERS: PCP Family Medicine; Visit Provider Internal Medicine ==

== ENCOUNTER → 2023-08-25 11:32 | Outpatient (BNVA) | payer MEDICARE, SELFPAY | PROVIDERS: PCP Family Medicine; Visit Provider Internal Medicine ==

== ENCOUNTER → 2023-08-30 11:19 | Outpatient (BNVA) | payer MEDICARE, SELFPAY | PROVIDERS: PCP Family Medicine; Visit Provider Internal Medicine ==

== ENCOUNTER 2023-08-31 14:13 | Outpatient (AMB) | payer MEDICARE, SELFPAY ==
[2023-08-31 14:37] VITALS: BP 122/70; PULSE 96; O2SAT 97; BMI 27.3
--- NOTE | 2023-08-31 14:37 | MHC.OFFVIS ---
Intake Vital Signs 08/31/23 14:37 Height 5 ft 5 in Weight 164 lb BMI 27.3 BP 122/70 Blood Pressure Location Lt brachial Position Sitting Pulse 96 Pulse Source Pulse Oximeter Pulse Oximetry (%) 97 Oxygen Delivery Method Nasal Cannula Oxygen Flow Rate 2 Intake Visit Reasons: COPD Intake Note: pt is here for follow up and has a lot of fatigue, but using oxygen 24 hours. 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 Allergies aspirin Allergy (Unknown, Verified 08/31/23 15:01) Sick codeine [CODEINE] Adverse Reaction (Intermediate, Verified 08/31/23 15:01) NAUSEA & VOMITING ibuprofen [From ADVIL] Adverse Reaction (Intermediate, Verified 08/31/23 15:01) NAUSEA & VOMITING Medication List - Last Reconciled 08/31/23 by Gretel Dorman MD albuterol sulfate 2.5 mg (3 mL) inhalation Q4H albuterol sulfate 90 mcg/actuation (Ventolin HFA) 2 puffs inhalation Q4-6H PRN 30 days aspirin (Enteric Coated Aspirin) 81 mg PO DAILY atorvastatin 80 mg PO BEDTIME [calcium with d PO] diltiazem HCl (Cardizem CD) 180 mg PO BID 90 days fluticasone propion-salmeterol 500-50 mcg/dose 1 inh inhalation BID 30 days fluticasone propionate 50 mcg/actuation (Flonase Allergy Relief) 1 spray intranasal Q12H 30 days levothyroxine 137 mcg PO DAILY 90 days magnesium oxide 200 mg PO DAILY miscellaneous medical supply Xpro Ostomy Pouch, As directed, One month supply miscellaneous medical supply Ostomy Skin Barrier Ring, 1/16 inch thickness, As directed, 1 month Supply miscellaneous medical supply Ostomy SafenSimple No-Sting Skin Barrier Film, As directed, 30 day supply montelukast 10 mg PO DAILY [multivitamin PO] nystatin mL PO PRN omeprazole 20 mg PO DAILY 90 days potassium chloride ER 60 mEq (3 x 20 mEq) PO DAILY tiotropium bromide (Spiriva with HandiHaler) 1 cap inhalation DAILY 30 days torsemide 40 mg (2 x 20 mg) PO DAILY 90 days warfarin 5 mg See Protocol PO DAILY 90 days Do you need a note to return to daycare/school/sports/work: No HPI COPD HPI Details This 77 years old female is being seen for follow-up of her COPD/ /allergic rhinitis and hypoxemia. She had a bout of upper respiratory infection a few weeks ago and since then continues to have intermittent cough with congested feeling. She has become more short of breath and continues to use oxygen 2 L/minute 24 hours a day. Denies fever or chills. Cough is mostly nonproductive. She is using Advair as well as Spiriva on a regular basis and uses the albuterol in the nebulizer once or twice a day. [facility] Medical History (Updated 08/31/23 @ 15:09 by Gretel Dorman MD) Hypoxemia Allergic rhinitis Pleural effusion Nocturnal hypoxemia Exercise hypoxemia Chronic atrial fibrillation Prosthetic valve dysfunction Nocturnal hypoxemia COPD (chronic obstructive pulmonary disease) COPD (chronic obstructive pulmonary disease) (HFpEF) heart failure with preserved ejection fraction GERD (gastroesophageal reflux disease) Hypothyroid Hyperlipidemia Asthma Surgical History Hx of abdominal surgery History of hernia surgery History of salpingo-oophorectomy History of carpal tunnel release History of hysterectomy History of colonoscopy History of mechanical aortic valve replacement (~2002) Family History Mother No problems noted. Father Myocardial infarction CAD (coronary artery disease) Brother Myocardial infarction Brother Myocardial infarction Social History Housing: Other Alcohol intake: never Patient Tobacco Use Status: Never used Tobacco e-Cigarette/Vaping Use: Never Used Second Hand Smoke Exposure: No service: No Current occupational status: retired Current occupational exposures/hazards: No Cognitive needs: No Hearing needs: No Vision needs: No Review of Systems Const All systems reviewed & are unremarkable except as noted in HPI and below Eyes Reports no additional complaints ENT Reports no additional complaints Card Denies chest pain, Reports irregular heart rhythm, Reports leg edema (Mild) and Reports dyspnea on exertion Resp Reports as per HPI, Denies cough, Reports dyspnea on exertion and Denies wheezing GI Reports no additional complaints Reports no additional complaints Skin/Breast Reports dry skin Neuro Reports no additional complaints Psych Reports no additional complaints Aller/Immun Denies wheezing Physical Exam Vital Signs: Last Vital Signs Pulse 96 08/31/23 14:37 BP 122/70 08/31/23 14:37 Pulse Ox 97 08/31/23 14:37 Oxygen Delivery Method Nasal Cannula 08/31/23 14:37 Oxygen Flow Rate 2 08/31/23 14:37 BMI result Body Mass Index 27.3 Const General: comfortable (But appears very weak), no acute distress, alert and awake Orientation/consciousness: patient oriented x3 HEENT Head: Yes normal to inspection General nose exam: No nasal polyps present and No nasal discharge present Face and sinus: Yes sinuses nontender Mouth: oropharynx normal Throat: Yes posterior oropharynx normal Eyes General: appearance normal, both eyes and all related structures Neck Neck: Yes normal visual inspection, Yes no lymphadenopathy, Yes trachea midline and Yes no JVD Thyroid: Thyroid normal Chest Chest palpation & inspection: normal inspection of the chest (Midline scar from previous open heart surgery for aortic valve replacement), normal palpation of entire chest wall and no tenderness Resp Other: Percussion note is resonant, breath sounds are very distant on both sides with prolonged expiratory phase. She does have a few expiratory wheezes in the upper parts of the lungs on both sides, no rhonchi or crepitations. Cardio Palpation: normal PMI Rate: regular rate Rhythm: regular rhythm Heart sounds: Clicking heart sound present (Metallic heart sounds), no gallops and no murmurs GI Palpation (GI): Soft to palpation, nontender, No hepatosplenomegaly present, no masses and Other GI palpation findings present (Colostomy bag in the left upper quadrant,a few areas of ventral herniation) Auscultation: normal bowel sounds Back/Spine/Pelvis Thoracic/Lumbar Spine: thoracic and lumbar spine normal to inspection and thoraco-lumbar ROM limited Skin General skin exam: no rashes or lesions noted and dry skin Neuro General: patient oriented x3 and no focal motor deficits Cranial nerves: Yes CN's II-XII intact bilaterally Extrem General: Yes normal to inspection, Yes no calf tenderness and Yes edema (1+ edema around the ankles) Psych Appearance: grossly normal and well kempt Speech and movement: Normal speech and movement present Assessment & Plan Assessment & Plan (1) COPD (chronic obstructive pulmonary disease): Comment: PATIENT DOES HAVE MODERATELY SEVERE CHRONIC OBSTRUCTIVE PULMONARY DISORDER, HAS BEEN RELATIVELY STABLE, BUT NOW AFTER UPPER RESPIRATORY INFECTION A FEW WEEKS AGO SHE CONTINUES TO HAVE INCREASED COUGH, AND THERE ARE A FEW WHEEZES IN THE UPPER PARTS OF THE CHEST. Code(s): J44.9 - Chronic obstructive pulmonary disease, unspecified Plan: CONTINUE ADVAIR 500-51 INHALATION B.I.D.. SPIRIVA HANDIHALER 1 INHALATION DAILY. ALBUTEROL HFA 2 PUFFS Q 4-6 HOURS P.R.N. OR ALTERNATIVELY ALBUTEROL SOLUTION IN THE NEBULIZER Q 4-6 HOURS P.R.N.. * A COURSE OF PREDNISONE 20 MG B.I.D. FOR 5 DAYS IS PRESCRIBED (2) Hypoxemia: Comment: PATIENT HAS NOCTURNAL HYPOXEMIA, WELL EXERCISE INDUCED HYPOXEMIA. Code(s): R09.02 - Hypoxemia Plan: O2 2 L/MINUTE AT NIGHT. ALSO USE 2 L/MINUTE WITH A LIGHTWEIGHT PORTABLE UNIT, ANY TIME SHE GOES OUTDOORS. MAY ALSO USE O2 AT HOME P.R.N. IF SHE GETS INCREASED SHORTNESS OF BREATH. (3) Allergic rhinitis: Comment: Patient has ongoing chronic allergic rhinitis, which is well controlled with current medical regimen. Code(s): J30.9 - Allergic rhinitis, unspecified Plan: CONTINUE : MONTELUKAST 10 MG DAILY. FLONASE 2 SPRAY EACH NOSTRIL DAILY. Medications: New prednisone 20 mg PO BID 10 tabs 0RF COPD EXCERBATION 5 days Coding Level of Care Code Est Pt Level 4 (21151) Diagnoses COPD (chronic obstructive pulmonary disease) J44.9 Hypoxemia R09.02 Allergic rhinitis J30.9
== END 2023-08-31 15:02 | disposition home or self-care (01) ==
PROVIDERS: PCP Family Medicine; Visit Provider Internal Medicine
DX: J44.9 Chronic obstructive pulmonary disease, unspecified (principal); R09.02 Hypoxemia; J30.9 Allergic rhinitis, unspecified
CPT/HCPCS: 99214

== ENCOUNTER → 2023-08-31 14:13 | Outpatient (BNVA) | payer MEDICARE, SELFPAY | PROVIDERS: PCP Family Medicine; Visit Provider Internal Medicine | DX: J44.9 Chronic obstructive pulmonary disease, unspecified (principal); J30.9 Allergic rhinitis, unspecified; R09.02 Hypoxemia | CPT/HCPCS: 99212 ==

== ENCOUNTER → 2023-09-04 09:21 | Outpatient (BNVA) | payer MEDICARE, SELFPAY | PROVIDERS: PCP Family Medicine; Visit Provider Internal Medicine ==

== ENCOUNTER 2023-09-05 10:16 | Outpatient (REF) | payer MEDICARE, SELFPAY ==
[2023-09-05 11:35] LABS: MANUAL DIFF FLAG NO
[2023-09-05 12:01] LABS: Basophils Percent Auto 0.3 % (0-2); Eosinophils Percent Auto 0.1 % (0-4); Hematocrit 31.9 % (37.0-47.0); Hemoglobin 10.2 g/dl (12.0-16.0); Imm Gran Abs Auto 0.18 X10*3/uL (0.00-0.03); Imm Gran Pct Auto 1.6 % (0.0-0.4); Lymphocytes Absolute Auto 0.6 X10*3/uL (1.2-4.9); Lymphocytes Percent Auto 5.3 % (20-40); Mean Corpuscular Hemoglobin 28.4 pg (27.0-33.0); Mean Corpuscular Volume 88.9 fL (80.0-98.0); Mean Platelet Volume 9.4 fL (9.4-12.3); Monocytes Absolute Auto 0.5 X10*3/uL (0.1-1.2); Monocytes Percent Auto 4.4 % (2-11); Neutrophils Absolute Auto 10.1 x10*3/uL (2.0-8.3); Neutrophils Percent Auto 88.3 % (45-73); Platelet Count 379 X10*3/uL (160-400); Red Blood Count 3.59 X10*6/uL (4.20-5.50); Red Cell Distribution Width 16.2 % (11.0-16.0); White Blood Count 11.5 X10*3/uL (4.8-10.8)
[2023-09-05 13:25] LABS: TSH reflex Free T4 0.41 uIU/mL (0.32-4.0)
[2023-09-05 13:32] LABS: Alanine Aminotransferase 23 U/L (0-31); Albumin Level 3.9 g/dL (3.5-5.0); Alkaline Phosphatase 42 U/L (39-117); Anion Gap 13 (12-20); Aspartate Amino Transferase 21 U/L (5-31); Bilirubin Total 0.5 mg/dL (0.0-1.0); Blood Urea Nitrogen 15 mg/dL (9-16); Calcium 9.4 mg/dL (8.4-10.2); Carbon Dioxide 28 mmol/L (22-29); Chloride 105 mmol/L (96-108); Cholesterol 199 mg/dL (<200); Estimated Glomerular Filt Rate > 60; Glucose Fasting 118 mg/dL (60-99); HDL Cholesterol 80 mg/dL (>40); LDL Cholesterol Calculated 108 mg/dL (<100); Potassium 3.9 mmol/L (3.3-5.1); Sodium 142 mmol/L (135-145); Total Protein 7.2 g/dL (6.5-8.0); Triglycerides 58 mg/dL (<150)
[2023-09-05 14:59] LABS: Appearance Urine Hazy; Color Urine Yellow; Glucose Urine UA Negative (Negative); Leukocyte Esterase Urine Large (3+) (Negative); Nitrite Urine Negative (Negative); Specific Gravity - Urine 1.015 (1.005-1.025); UMIC TRIGGER UA YES; Urine Blood Trace (Negative); Urine Ketones Negative (Negative); Urine Protein Trace mg/dL (Neg-Trace)
[2023-09-05 15:14] LABS: RBC Urine 0-2 /HPF (0-2)
[2023-09-05 15:15] LABS: Bacteria Urine 1+ (None Seen); Hyaline Casts Urine 0-2 /LPF (0-2)
[2023-09-05 15:56] LABS: Creatinine Urine 136.09 mg/dL; Microalbum/Creatinine Ratio Ur 27.1 ug/mg cr (<30)
== END 2023-09-05 10:17 | disposition home or self-care (01) ==
LOC: HO.WFDLDS 10:16
PROVIDERS: Visit Provider Family Medicine
DX: Z00.00 Encounter for general adult medical examination without abnormal findings (principal); I10 Essential (primary) hypertension
CPT/HCPCS: 36415; 80053; 80061; 81001; 82043; 82570; 84443; 85025

== ENCOUNTER → 2023-09-08 16:20 | Outpatient (BNVA) | payer MEDICARE, SELFPAY | PROVIDERS: PCP Family Medicine; Visit Provider Internal Medicine ==

== ENCOUNTER 2023-09-11 15:51 | Outpatient (AMB) | payer MEDICARE, SELFPAY ==
[2023-09-11 16:10] VITALS: BP 118/78; PULSE 98; O2SAT 100; BMI 27.5
--- NOTE | 2023-09-11 16:10 | A.OFFPC_ITS ---
Vital Signs 09/11/23 16:10 Height 5 ft 5 in Weight 165 lb BMI 27.5 BP 118/78 Blood Pressure Location Lt brachial Position Sitting Pulse 98 Pulse Source Pulse Oximeter Pulse Oximetry (%) 100 Oxygen Delivery Method Room Air Intake Visit Reasons: Extended exam with f/u labs and health maintenance Intake Note: Patient is here for extended exam with follow up on labs and health maintenance. Allergies aspirin Allergy (Unknown, Verified 09/08/23 16:42) Sick codeine [CODEINE] Adverse Reaction (Intermediate, Verified 09/08/23 16:42) NAUSEA & VOMITING ibuprofen [From ADVIL] Adverse Reaction (Intermediate, Verified 09/08/23 16:42) NAUSEA & VOMITING Tobacco use date assessed: 09/11/23 HPI Extended exam with f/u labs and health maintenance HPI Details 77 y/o female presents for an extended e xam with f/u labs and health maintenance. Labs were edrawn 09/05/23. Reviewed labs with pt. Anemia. Elevated fasting glucose of 118. Triglycerides 58. TC 199. LDL 108. HDL 80. Pt reports chest x-ray was done last Monday which showed a pleural effusion. [facility] Medical History (Updated 09/11/23 @ 16:48 by Mc Delacruz) Hypoxemia Allergic rhinitis Pleural effusion Nocturnal hypoxemia Exercise hypoxemia Chronic atrial fibrillation Prosthetic valve dysfunction Nocturnal hypoxemia COPD (chronic obstructive pulmonary disease) COPD (chronic obstructive pulmonary disease) (HFpEF) heart failure with preserved ejection fraction GERD (gastroesophageal reflux disease) Hypothyroid Hyperlipidemia Asthma Surgical History Hx of abdominal surgery History of hernia surgery History of salpingo-oophorectomy History of carpal tunnel release History of hysterectomy History of colonoscopy History of mechanical aortic valve replacement (~2002) Family History Mother No problems noted. Father Myocardial infarction CAD (coronary artery disease) Brother Myocardial infarction Brother Myocardial infarction Social History Housing: Other Alcohol intake: never Patient Tobacco Use Status: Never used Tobacco e-Cigarette/Vaping Use: Never Used Second Hand Smoke Exposure: No service: No Current occupational status: retired Current occupational exposures/hazards: No Cognitive needs: No Hearing needs: No Vision needs: No Questionnaire Thrive Questionnaire Date Thrive assessed: 06/30/22 BECKY-7 AMB Questionnaire BECKY-7 Date BECKY - 7 assessed: 06/30/22 Source: Developed by Drs. Gurmeet Acuña, Antoinette Shafer, Bao Gutierrez and colleagues, with an educational flaco from [employer]. Review of Systems Const Denies chills, Denies fatigue, Denies fever(s), Denies headache(s) and Denies weakness Eyes Denies change in vision ENT Denies dizziness, Denies headache(s), Denies hearing loss, Denies nasal congestion, Denies sinus pain, Denies sinus pressure and Denies sore throat Card Denies chest pain, Denies lightheadedness, Denies dyspnea and Denies other (palpitations) Resp Denies cough, Denies dyspnea and Denies wheezing GI Denies abdominal pain, Denies melena, Denies hematochezia, Denies change in bowel habits, Denies dyspepsia and Denies nausea Denies hematuria and Denies dysuria Musc Denies abnormal gait, Denies myalgias, Denies arthralgias, Denies numbness and Denies tingling Skin/Breast Denies rash, Denies unusual bruising and Denies wounds Neuro Denies abnormal gait, Denies dizziness, Denies headache(s), Denies memory loss, Denies numbness, Denies Sensory deficit (Neuro), Denies tingling and Denies weakness Psych Denies anxiety, Denies depression and Denies memory loss Endo Denies cold intolerance, Denies fatigue, Denies heat intolerance, Denies polydip melvina and Denies polyuria Marcelino/Lymph Denies easy bleeding and Denies easy bruising Aller/Immun Denies wheezing Physical exam (Primary Care) Vital Signs: Last Vital Signs Pulse 98 09/11/23 16:10 BP 118/78 09/11/23 16:10 Pulse Ox 100 09/11/23 16:10 Oxygen Delivery Method Room Air 09/11/23 16:10 BMI result Body Mass Index 27.5 Tobacco/Smoking Status: Tobacco use Status Tobacco use date assessed 09/11/23 09/11/23 16:19 Patient Tobacco Use Status Never used Tobacco 09/11/23 16:15 e-Cigarette/Vaping Use Never Used 09/11/23 16:15 Thrive Assessment: Date of Thrive Assessment Date Thrive assessed 06/30/22 09/11/23 16:15 Const General: no acute distress, well developed, alert and awake Nutritional Appearance: well nourished Orientation/consciousness: patient oriented x3 HENMT Head: Yes normocephalic and Yes atraumatic Ears: hearing grossly normal bilaterally and TM's normal bilaterally General nose exam: Normal external nose present and Normal nares present Mouth: Normal oral and palatal mucosa present and moist mucous membranes Teeth and gingiva: dentition normal Throat: Yes posterior oropharynx normal Eyes General: appearance normal, both eyes and all related structures Pupils: Equal, round and reactive pupils present and Pupil accommodation reflex normal EOM: EOMs intact bilaterally Neck Neck: Yes normal visual inspection, Yes no lymphadenopathy and Yes trachea midline Thyroid: Thyroid normal Carotids: no bruits Lymphatic: no lymphadenopathy noted Chest Chest palpation & inspection: normal inspection of the chest Resp Other: Rhonchorous sounds Cardio Rate: regular rate Rhythm: regular rhythm Heart sounds: S1 normal heart sound present, S2 normal heart sound present, no gallops, no murmurs and no rubs Bruits: no abdominal aortic bruits and no carotid bruits GI Palpation (GI): No Abdominal aortic bruit present, Soft to palpation, nontender, No hepatosplenomegaly present and No Rebound tenderness present Auscultation: normal bowel sounds General: Yes no CVA tenderness Back/Spine/Pelvis Back: no CVA tenderness Cervical Spine: cervical ROM normal and No Cervical spine tenderness Thoracic/Lumbar Spine: thoraco-lumbar ROM normal, No pain with thoraco-lumbar ROM, No thoracic spinal tenderness and No lumbar spinal tenderness Skin Lesions: no lesions Rashes: no rashes Trauma: no lacerations or abrasions Wounds: no wounds Nails: normal Neuro General: patient oriented x3 Cranial nerves: Yes Equal, round and reactive pupils present Cognition (Neuro): normal cognition Gait exam (Neuro): Normal gait present Motor exam (neuro): 5/5 motor strength present throughout Sensory Exam: No Sensory deficit (Neuro) Deep tendon reflexes (DTR's): Right patellar reflex intensity grade: 2+ and Left patellar reflex intensity grade: 2+ Extrem General: Yes normal to inspection and No edema Psych Appearance: grossly normal Affect: normal affect Attitude: cooperative Thought process: Normal thought process present Assessment and Plan Assessment & Plan (1) Pleural effusion: Code(s): J90 - Pleural effusion, not elsewhere classified Plan: Pleural?effusions?and?likely?pneumonia?seen?on?chest?x- ray?and?patient?was?started?on?doxycycline?and?prednisone. Still?has?significant rhonchi?to?auscultation Will?have?her?recheck?her?chest?x-ray?and?follow-up?with?me?next?week (2) Mild anemia: Code(s): D64.9 - Anemia, unspecified Plan: Stable Will?continue?to?follow (3) Elevated fasting glucose: Code(s): R73.01 - Impaired fasting glucose Plan: Ongoing?elevated?fasting?blood?sugars. Will?continue?to?follow?the (4) Breast cancer screening by mammogram: Code(s): Z12.31 - Encounter for screening mammogram for malignant neoplasm of breast Plan: Mammogram?Negative?for?malignancy?and?recommended?annual?screening (5) Screening for osteoporosis: Code(s): Z13.820 - Encounter for screening for osteoporosis Plan: Bone?density?in?2020?showed?osteopenia Due?for?repeat?bone?density-ordered (6) Encounter for screening for malignant neoplasm of colon: Code(s): Z12.11 - Encounter for screening for malignant neoplasm of colon Plan: Patient?declines?further?screening (7) Adult general medical examination: Code(s): Z00.00 - Encounter for general adult medical examination without abnormal findings Plan: 77-year-old?female?presents?for?an?extended?exam Orders: Orders XR DEXA axial skeleton Today M81.0 - Age-related osteoporosis without current pathological fracture XR chest 2V Today J18.9 - Pneumonia, unspecified organism Medications: Changed From warfarin 5 mg See Protocol PO DAILY 90 days 90 tabs 3RF To warfarin 5 mg See Protocol PO DAILY 7 days 7 tabs 0RF From warfarin 5 mg See Protocol PO DAILY 7 days 7 tabs 0RF To warfarin 5 mg See Protocol PO DAILY 90 tabs 3RF 90 days Refilled warfarin 5 mg See Protocol PO DAILY 90 days 90 tabs 3RF miscellaneous medical supply Xpro Ostomy Pouch, As directed, One month supply 20 ea 6RF Z93.3 - Colostomy status miscellaneous medical supply Ostomy Skin Barrier Ring, 1/16 inch thickness, As directed, 1 month Supply 20 ea 6RF Z93.3 - Colostomy status miscellaneous medical supply Ostomy SafenSimple No-Sting Skin Barrier Film, As directed, 30 day supply 20 ea 0RF Z93.3 - Colostomy status Coding Level of Care Code Est Pt Level 4 (03368) Diagnoses Pleural effusion J90 Mild anemia D64.9 Elevated fasting glucose R73.01 Breast cancer screening by mammogram Z12.31 Screening for osteoporosis Z13.820 Encounter for screening for malignant neoplasm of colon Z12.11 Adult general medical examination Z00.00
== END 2023-09-18 15:56 | disposition home or self-care (01) ==
PROVIDERS: PCP Family Medicine; Visit Provider Family Medicine
DX: Z00.00 Encounter for general adult medical examination without abnormal findings (principal); J90 Pleural effusion, not elsewhere classified; D64.9 Anemia, unspecified; R73.01 Impaired fasting glucose; Z12.31 Encounter for screening mammogram for malignant neoplasm of breast; Z13.820 Encounter for screening for osteoporosis; Z12.11 Encounter for screening for malignant neoplasm of colon
CPT/HCPCS: 99214; 99397

== ENCOUNTER 2023-09-13 11:48 | Outpatient (REF) | payer MEDICARE, SELFPAY ==
--- NOTE | ~2023-09-13 | XR_ITS ---
EXAMINATION: XR CHEST CLINICAL INFORMATION: Pneumonia COMPARISON: Chest x-ray on 05/02/2022 TECHNIQUE: 2 views of the chest were obtained. FINDINGS: pulmonary vascularity. LUNGS: Asymmetric hazy alveolar density is seen in the right lower lung. Bilateral pleural effusions are seen effacing the lateral costophrenic angles. No pneumothorax is seen. BONES: Bony skeleton is intact. Median sternotomy wire loops and aortic valve prosthesis are seen. XR/XR chest 2V IMPRESSION: 1. Unchanged Asymmetric hazy alveolar density in the right lower lung could represent layering of pleural fluid and/or atelectasis/infiltrate. 2. Unchanged Bilateral pleural effusions. 3. Unchanged status post median sternotomy and aortic valve replacement.
== END 2023-09-13 11:49 | disposition home or self-care (01) ==
LOC: HO.XRAY 11:48
PROVIDERS: Absent Provider Family Medicine; PCP Family Medicine; Visit Provider Internal Medicine
DX: J18.9 Pneumonia, unspecified organism (principal)
CPT/HCPCS: 71046

== ENCOUNTER → 2023-09-18 10:32 | Outpatient (BNVA) | payer MEDICARE, SELFPAY | PROVIDERS: PCP Family Medicine; Visit Provider Internal Medicine | DX: I50.30 Unspecified diastolic (congestive) heart failure (principal); I48.20 Chronic atrial fibrillation, unspecified; T82.09XA Other mechanical complication of heart valve prosthesis, initial encounter; Z79.01 Long term (current) use of anticoagulants; Z79.899 Other long term (current) drug therapy | CPT/HCPCS: 99212 ==

== ENCOUNTER 2023-09-18 14:25 | Outpatient (AMB) | payer MEDICARE, SELFPAY ==
[2023-09-18 14:27] VITALS: BP 120/80; PULSE 88; BMI 27.1
--- NOTE | 2023-09-18 14:27 | MHC.OFFVIS ---
Intake Vital Signs 09/18/23 14:27 Height 5 ft 5 in Weight 163 lb 2.273 oz BMI 27.1 BP 120/80 Blood Pressure Location Lt brachial Position Sitting Pulse 88 Intake Visit Reasons: 6 mth f/up s/p echo Intake Note: 6 month follow-up after echo feeling ok Tripe [employer]er Required: No Allergies aspirin Allergy (Unknown, Verified 09/13/23 15:02) Sick codeine [CODEINE] Adverse Reaction (Intermediate, Verified 09/13/23 15:02) NAUSEA & VOMITING ibuprofen [From ADVIL] Adverse Reaction (Intermediate, Verified 09/13/23 15:02) NAUSEA & VOMITING Medication List - Last Reconciled 09/18/23 by Darius Spicer MD albuterol sulfate 2.5 mg (3 mL) inhalation Q4H albuterol sulfate 90 mcg/actuation (Ventolin HFA) 2 puffs inhalation Q4-6H PRN 30 days aspirin (Enteric Coated Aspirin) 81 mg PO DAILY atorvastatin 80 mg PO BEDTIME [calcium with d PO] diltiazem HCl (Cardizem CD) 180 mg PO BID 90 days doxycycline hyclate 100 mg PO BID fluticasone propion-salmeterol 500-50 mcg/dose 1 inh inhalation BID 30 days fluticasone propionate 50 mcg/actuation (Flonase Allergy Relief) 1 spray intranasal Q12H 30 days levothyroxine 137 mcg PO DAILY 90 days magnesium oxide 200 mg PO DAILY miscellaneous medical supply Xpro Ostomy Pouch, As directed, One month supply miscellaneous medical supply Ostomy Skin Barrier Ring, 1/16 inch thickness, As directed, 1 month Supply miscellaneous medical supply Ostomy SafenSimple No-Sting Skin Barrier Film, As directed, 30 day supply montelukast 10 mg PO DAILY [multivitamin PO] nystatin mL PO PRN omeprazole 20 mg PO DAILY 90 days potassium chloride ER 60 mEq (3 x 20 mEq) PO DAILY tiotropium bromide (Spiriva with HandiHaler) 1 cap inhalation DAILY 30 days torsemide 40 mg (2 x 20 mg) PO DAILY 90 days warfarin 5 mg See Protocol PO DAILY 90 days HPI HPI Comments History of Present Illness Details Danielle comes for follow-up. Was a concern raised about 2 weeks ago on a chest x-ray where it showed small bilateral pleural effusion. This has been present for a long time. Has no new finding. She also has concomitant underlying atelectasis. Continues to have exertional shortness of breath. Her leg swelling has remained very well controlled except for since yesterday she had some high salt diet and has some leg swelling in the left lower extremity. She has not had any significant weight gain. She was admitted in June with lower GI bleed at [facility] post colonoscopy. She denies any significant orthopnea, PND, abdominal distension. She uses oxygen around the clock. No prolonged palpitations irregular heartbeat. No lightheadedness, syncope. No chest pain. [facility] Medical History (Updated 09/11/23 @ 16:48 by Mc Delacruz) Hypoxemia Allergic rhinitis Pleural effusion Nocturnal hypoxemia Exercise hypoxemia Chronic atrial fibrillation Prosthetic valve dysfunction Nocturnal hypoxemia COPD (chronic obstructive pulmonary disease) COPD (chronic obstructive pulmonary disease) (HFpEF) heart failure with preserved ejection fraction GERD (gastroesophageal reflux disease) Hypothyroid Hyperlipidemia Asthma Surgical History Hx of abdominal surgery History of hernia surgery History of salpingo-oophorectomy History of carpal tunnel release History of hysterectomy History of colonoscopy History of mechanical aortic valve replacement (~2002) Family History Mother No problems noted. Father Myocardial infarction CAD (coronary artery disease) Brother Myocardial infarction Brother Myocardial infarction Social History Housing: Other Alcohol intake: never Patient Tobacco Use Status: Never used Tobacco e-Cigarette/Vaping Use: Never Used Second Hand Smoke Exposure: No service: No Current occupational status: retired Current occupational exposures/hazards: No Cognitive needs: No Hearing needs: No Vision needs: No Review of Systems Const Denies chills, Denies fatigue, Denies fever(s), Denies frequent falls, Denies weakness, Denies weight gain and Denies weight loss ENT Denies dizziness Card Denies chest pain, Denies leg edema, Denies lightheadedness, Denies palpitations, Denies dyspnea, Denies dyspnea on exertion, Denies orthopnea and Denies other (loss of consciousness) Resp Denies cough, Denies dyspnea and Denies dyspnea on exertion GI Denies hematochezia and Denies change in stool character Musc Denies abnormal gait, Denies muscle weakness, Denies numbness, Denies radiating pain into limb and Denies tingling Neuro Denies abnormal gait, Denies dizziness, Denies frequent falls, Denies numbness, Denies tingling and Denies weakness Endo Denies fatigue and Denies palpitations Physical Exam Vital Signs: Last Vital Signs Pulse 88 09/18/23 14:27 BP 120/80 09/18/23 14:27 BMI result Body Mass Index 27.1 Const General: comfortable (But appears very weak), no acute distress, alert and awake Orientation/consciousness: patient oriented x3 HEENT Head: Yes normal to inspection General nose exam: No nasal polyps present and No nasal discharge present Face and sinus: Yes sinuses nontender Mouth: oropharynx normal Throat: Yes posterior oropharynx normal Eyes General: appearance normal, both eyes and all related structures Neck Neck: Yes normal visual inspection, Yes no lymphadenopathy, Yes trachea midline and Yes no JVD Chest Chest palpation & inspection: normal inspection of the chest (Midline scar from previous open heart surgery for aortic valve replacement), normal palpation of entire chest wall and no tenderness Resp Other: Percussion note is resonant, breath sounds are very distant on both sides with prolonged expiratory phase. No wheezes rhonchi or crepitations are heard. Auscultation: diminished lung sounds bilateral in the lower lung triana Cardio Jugular venous distension: no JVD Palpation: normal PMI Rhythm: abnormal rhythm irregularly irregular Heart sounds: S1 normal heart sound present, Clicking heart sound present (Metallic heart sounds), no gallops and no murmurs GI Palpation (GI): Soft to palpation, nontender, No hepatosplenomegaly present, no masses and Other GI palpation findings present (Colostomy bag in the left upper quadrant,a few areas of ventral herniation) Auscultation: normal bowel sounds Back/Spine/Pelvis Thoracic/Lumbar Spine: thoracic and lumbar spine normal to inspection and thoraco-lumbar ROM limited Skin General skin exam: no rashes or lesions noted and dry skin Neuro General: patient oriented x3 and no focal motor deficits Cranial nerves: Yes CN's II-XII intact bilaterally Extrem General: Yes normal to inspection, Yes no calf tenderness, No clubbing, No cyanosis and Yes edema (1-2 + edema around the ankles) Psych Appearance: grossly normal and well kempt Speech and movement: Normal speech and movement present Results AMB INR Fingerstick AMB INR Fingerstick 3.6 Last Edit by Danielle Batres RN on 09/18/23 10:48 pst Assessment & Plan Assessment & Plan (1) (HFpEF) heart failure with preserved ejection fraction: Comment: It seems to be under control at this time. She is being followed by Cardiology very regularly. Code(s): I50.30 - Unspecified diastolic (congestive) heart failure Plan: Heart failure preserved ejection fraction as well as chronic respiratory failure due to pulmonary parenchymal disease. She does have small bilateral pleural effusion which are multifactorial related to probably underlying atelectasis and/or heart failure. However they are not significant enough for her to undergo thoracocentesis. Advised her to continue current diuretic regimen. Daily weight monitoring and avoidance of salt loading was discussed. Based on recent data will prescribe her Jardiance 10 mg daily as well for management of heart failure. Mechanism of action was discussed. Follow-up blood work in 1-2 weeks time. Follow-up echocardiogram in 6 months time. Continue aggressive rate control approach. Continue oxygen supplementation therapy. Encouraged to continue to participate in physical activity as tolerated. Overall prognosis remains limited. (2) Chronic atrial fibrillation: Code(s): I48.20 - Chronic atrial fibrillation, unspecified Plan: Chronic rate control atrial fibrillation. Currently rate control with Cardizem therapy. Continue the same. Currently on full oral anticoagulation warfarin. Maintain target INR between 2.5 and 3.5. (3) Prosthetic valve dysfunction: Comment: last echo April 2020 showed mean gradient of 22 mm of mercury Code(s): T82.09XA - Other mechanical complication of heart valve prosthesis, initial encounter Plan: Patient [place] aortic valve replacement with mean gradient of 22 mm Hg with patient prosthesis mismatch. Clinically valve seems to be functioning well. Follow-up echocardiogram 6 months time. Continue warfarin therapy as above. SBE prophylaxis as per [facility] guidelines. Will follow up in the clinic in 6 months time, sooner p.r.n.. Thank you for allowing me to partake in the care Orders: Orders Basic Metabolic Panel 2 Weeks I50.30 - Unspecified diastolic (congestive) heart failure B Type Natriuretic Peptide 2 Weeks I50.30 - Unspecified diastolic (congestive) heart failure CA echo transthoracic complete 6 Months T82.09XA - Other mechanical complication of heart valve prosthesis, initial encounter Medications: New empagliflozin (Jardiance) 10 mg PO DAILY 30 tabs 5RF Coding Level of Care Code Est Pt Level 4 (28267) Diagnoses (HFpEF) heart failure with preserved ejection fraction I50.30 Chronic atrial fibrillation I48.20 Prosthetic valve dysfunction T82.09XA
== END 2023-09-18 14:52 | disposition home or self-care (01) ==
PROVIDERS: PCP Family Medicine; Visit Provider Internal Medicine Cardiovascular Disease
DX: I50.30 Unspecified diastolic (congestive) heart failure (principal); I48.20 Chronic atrial fibrillation, unspecified; T82.09XA Other mechanical complication of heart valve prosthesis, initial encounter
CPT/HCPCS: 99214

== ENCOUNTER 2023-09-20 13:59 | Outpatient (AMB) | payer MEDICARE, SELFPAY ==
--- NOTE | 2023-09-20 13:50 | A.OFFPC_ITS ---
Intake Visit Reasons: f/u chest x-ray Inspector Clip On Sunglasses Required: No Allergies Seasonal Allergies Allergy (Severe, Verified 09/20/23 13:54) Itchy Eyes house dust Allergy (Intermediate, Verified 09/20/23 13:54) Sneezing aspirin Allergy (Unknown, Verified 09/20/23 13:53) Sick codeine [CODEINE] Adverse Reaction (Intermediate, Verified 09/20/23 13:53) NAUSEA & VOMITING ibuprofen [From ADVIL] Adverse Reaction (Intermediate, Verified 09/20/23 13:53) NAUSEA & VOMITING Tobacco use date assessed: 09/11/23 HPI f/u chest x-ray HPI Details 77 y/o female presents to f/u chest x-ra y via telemedicine. Chest x-ray 09/13/23 shows: 1. Unchanged Asymmetric hazy alveolar d ensity in the right lower lung could represent layering of pleural fluid and/or atelectasis/infiltrate. 2. Unchanged Bilateral pleural effusion s. 3. Unchanged status post median sternot james and aortic valve replacement. Pt reports ongoing coughs. She denies any fevers. She continues to be on torsemide. [facility] Medical History (Updated 09/11/23 @ 16:48 by Mc Delacruz) Hypoxemia Allergic rhinitis Pleural effusion Nocturnal hypoxemia Exercise hypoxemia Chronic atrial fibrillation Prosthetic valve dysfunction Nocturnal hypoxemia COPD (chronic obstructive pulmonary disease) COPD (chronic obstructive pulmonary disease) (HFpEF) heart failure with preserved ejection fraction GERD (gastroesophageal reflux disease) Hypothyroid Hyperlipidemia Asthma Surgical History Hx of abdominal surgery History of hernia surgery History of salpingo-oophorectomy History of carpal tunnel release History of hysterectomy History of colonoscopy History of mechanical aortic valve replacement (~2002) Family History Mother No problems noted. Father Myocardial infarction CAD (coronary artery disease) Brother Myocardial infarction Brother Myocardial infarction Social History Housing: Other Alcohol intake: never Patient Tobacco Use Status: Never used Tobacco e-Cigarette/Vaping Use: Never Used Second Hand Smoke Exposure: No service: No Current occupational status: retired Current occupational exposures/hazards: No Cognitive needs: No Hearing needs: No Vision needs: No Questionnaire Thrive Questionnaire Date Thrive assessed: 06/30/22 BECKY-7 AMB Questionnaire BECKY-7 Date BECKY - 7 assessed: 06/30/22 Source: Developed by Drs. Gurmeet Acuña, Antoinette Shafer, Bao Gutierrez and colleagues, with an educational flaco from [employer]. Review of Systems Const Denies chills, Denies fatigue, Denies fever(s), Denies headache(s) and Denies weakness ENT Denies dizziness and Denies headache(s) Card Denies dyspnea Resp Denies cough, Denies dyspnea, Denies wheezing and Denies other (shortness of breath) Musc Denies numbness and Denies tingling Neuro Denies dizziness, Denies headache(s), Denies numbness, Denies tingling and Denies weakness Psych Denies anxiety and Denies depression Endo Denies fatigue Aller/Immun Denies wheezing Physical exam (Primary Care) Tobacco/Smoking Status: Tobacco use Status Tobacco use date assessed 09/11/23 09/20/23 13:58 Patient Tobacco Use Status Never used Tobacco 09/20/23 13:58 e-Cigarette/Vaping Use Never Used 09/20/23 13:58 Thrive Assessment: Date of Thrive Assessment Date Thrive assessed 06/30/22 09/20/23 13:58 Telehealth Telehealth Location of provider rendering services: practice address Location of patient: address on file Patient Identification confirmed using: Name, : Yes Telehealth method: voice only Patient verbally consented to treatment: Yes Patient verbally consented to billing insurance company: Yes Patient informed of any privacy concerns related to visit: Yes Assessment and Plan Assessment & Plan (1) Pleural effusion: Code(s): J90 - Pleural effusion, not elsewhere classified Plan: Bilateral?pleural?effusion?and?atelectasis, not?significant?enough?to?w arrant?thoracentesis. Likely?secondary?to?heart?failure?and?prior?pneumonia. Patient?says?she?is?breathing?well Continue?current?medication?regimen?including?torsemide She?will?let?me?know?if?breath ing?worsens,?cough?worsens?or?she?has?any?fevers/chills. Coding Level of Care Code Tele Est Pt Level 2 (93641) Diagnoses Pleural effusion J90
== END 2023-09-20 15:46 | disposition home or self-care (01) ==
LOC: HO.HMGFM 13:59
PROVIDERS: PCP Family Medicine; Visit Provider Family Medicine
DX: J90 Pleural effusion, not elsewhere classified (principal)
CPT/HCPCS: 99441

== ENCOUNTER → 2023-09-21 09:49 | Outpatient (BNVA) | payer MEDICARE, SELFPAY | PROVIDERS: PCP Family Medicine; Visit Provider Internal Medicine ==

== ENCOUNTER → 2023-09-27 11:19 | Outpatient (BNVA) | payer MEDICARE, SELFPAY | PROVIDERS: PCP Family Medicine; Visit Provider Internal Medicine ==

== ENCOUNTER 2023-09-29 10:34 | Outpatient (REF) | payer MEDICARE, SELFPAY ==
[2023-09-29 15:07] LABS: Anion Gap 13 (12-20); Blood Urea Nitrogen 10 mg/dL (9-16); Calcium 9.7 mg/dL (8.4-10.2); Carbon Dioxide 26 mmol/L (22-29); Chloride 103 mmol/L (96-108); Estimated Glomerular Filt Rate > 60; Glucose Random 108 mg/dL (60-115); Potassium 3.9 mmol/L (3.3-5.1); Sodium 138 mmol/L (135-145)
== END 2023-09-29 10:35 | disposition home or self-care (01) ==
LOC: HO.WFDLDS 10:34
PROVIDERS: Visit Provider Internal Medicine Cardiovascular Disease
DX: I50.30 Unspecified diastolic (congestive) heart failure (principal)
CPT/HCPCS: 36415; 80048

== ENCOUNTER → 2023-10-04 11:41 | Outpatient (BNVA) | payer MEDICARE, SELFPAY | PROVIDERS: PCP Family Medicine; Visit Provider Internal Medicine ==

== ENCOUNTER 2023-10-06 14:10 | Outpatient (REF) | payer MEDICARE, SELFPAY ==
--- NOTE | ~2023-10-06 | MM_ITS ---
EXAMINATION: BONE DENSITOMETRY CLINICAL INDICATION: Age-related osteoporosis without current pathological fracture. COMPARISON: Previous BD dated 06/04/2021 and baseline BD dated 03/04/2004. TECHNIQUE: Using a Integrated [employer] DXA System (software version: 13.1) manufactured by [employer], dual-energy x-ray absorptiometry was performed of the lumbar spine and left hip. The images are of good technical quality. Summary results are attached. FINDINGS: LEFT FEMUR, NECK: Current: BMD 0.682 g/cm2, Z-score -0.8, T-score -2.6, osteoporosis. Prior: BMD 0.784 g/cm2. Baseline: BMD 0.780 g/cm2. LEFT FEMUR, TOTAL: Current: BMD 0.846 g/cm2, Z-score 0.3, T-score -1.3, osteopenia, 10.5% decrease from previous, 6.9% decrease from baseline (<5% change is not significant). Prior: BMD 0.945 g/cm2. Baseline: BMD 0.909 g/cm2. AP SPINE L1-L4: Current: BMD 1.102 g/cm2, Z-score 0.8, T-score -0.6, normal, 2.1% decrease from previous, 6.7% increase from baseline (<5% change is not significant). Prior: BMD 1.126 g/cm2. Baseline: BMD 1.033 g/cm2. IDENTIFIED RISK FACTORS: Early menopause, intestinal or bowel disease, secondary osteoporosis, right oophorectomy, history of fracture (adult). HISTORY OF FRACTURE: Wrist. MEDICATIONS: Calcium supplements or multivitamin, vitamin D. MM/XR DEXA axial skeleton IMPRESSION: 1. DIAGNOSIS: Severe osteoporosis based on the lowest T-score value of -2.6 in the femoral neck and history of fracture applying World Health Organization criteria. 2. 10-YEAR FRACTURE RISK PREDICTION, FRAX: According to the guidelines, FRAX calculation should only be performed on patients in the osteopenia bone density category. Therefore, FRAX was not performed on this patient. 3. Treatment Recommendations: NOF guidelines recommend consideration for treatment in postmenopausal women and men age 50 and older presenting with the following: -A hip or vertebral (clinical or morphometric) fracture. -T-score less than or equal to -2.5 at the femoral neck or spine after appropriate evaluation to exclude secondary causes. -Low bone mass at the hip or spine and a 10-year fracture probability by FRAX of greater than or equal to 3% for hip fracture or greater than or equal to 20% for major osteoporotic fracture based on the [place] adapted WHO algorithm. 4. Other Recommendations: All treatment decisions require clinical judgment and consideration of individual patient factors, including patient preferences, comorbidities, previous drug use, risk factors not captured in the FRAX model (e.g. frailty, falls, vitamin D deficiency, increased bone turnover, interval significant decline in bone density) and possible under or overestimation of fracture risk by FRAX. Additional medical evaluation for secondary cause of low bone mineral density may be appropriate. FUTURE SCAN RECOMMENDATION: People with diagnosed cases of osteoporosis or at high risk for fracture should have regular bone mineral density tests. For patients eligible for Medicare, routine testing is allowed once every 2 years. The testing frequency can be increased to one year for patients who have rapidly progressing disease, those who are receiving or discontinuing medical therapy to restore bone mass, or have additional risk factors.
== END 2023-10-06 14:11 | disposition home or self-care (01) ==
LOC: HO.MAMMO 14:10
PROVIDERS: PCP Family Medicine; Visit Provider Family Medicine
DX: M81.0 Age-related osteoporosis without current pathological fracture (principal); Z78.0 Asymptomatic menopausal state; Z90.721 Acquired absence of ovaries, unilateral
CPT/HCPCS: 77080

== ENCOUNTER → 2023-10-11 11:18 | Outpatient (BNVA) | payer MEDICARE, SELFPAY | PROVIDERS: PCP Family Medicine; Visit Provider Internal Medicine ==

== ENCOUNTER → 2023-10-18 10:18 | Outpatient (BNVA) | payer MEDICARE, SELFPAY | PROVIDERS: PCP Family Medicine; Visit Provider Internal Medicine ==

== ENCOUNTER → 2023-10-25 10:23 | Outpatient (BNVA) | payer MEDICARE, SELFPAY | PROVIDERS: PCP Family Medicine; Visit Provider Internal Medicine ==

== ENCOUNTER → 2023-11-01 13:54 | Outpatient (BNVA) | payer MEDICARE, SELFPAY | PROVIDERS: PCP Family Medicine; Visit Provider Internal Medicine ==

== ENCOUNTER → 2023-11-08 11:43 | Outpatient (BNVA) | payer MEDICARE, SELFPAY | PROVIDERS: PCP Family Medicine; Visit Provider Internal Medicine ==

== ENCOUNTER → 2023-11-15 11:25 | Outpatient (BNVA) | payer MEDICARE, SELFPAY | PROVIDERS: PCP Family Medicine; Visit Provider Internal Medicine ==

== ENCOUNTER → 2023-11-22 09:00 | Outpatient (BNVA) | payer MEDICARE, SELFPAY | PROVIDERS: PCP Family Medicine; Visit Provider Internal Medicine ==

== ENCOUNTER → 2023-11-29 10:54 | Outpatient (BNVA) | payer MEDICARE, SELFPAY | PROVIDERS: PCP Family Medicine; Visit Provider Internal Medicine ==

== ENCOUNTER → 2023-12-26 11:40 | Outpatient (BNVA) | payer MEDICARE, SELFPAY | PROVIDERS: PCP Family Medicine; Visit Provider Internal Medicine ==

== ENCOUNTER → 2024-01-03 11:11 | Outpatient (BNVA) | payer MEDICARE, SELFPAY | PROVIDERS: PCP Family Medicine; Visit Provider Internal Medicine ==

== ENCOUNTER → 2024-01-05 15:07 | Outpatient (BNVA) | payer MEDICARE, SELFPAY | PROVIDERS: PCP Family Medicine; Visit Provider Internal Medicine ==

== ENCOUNTER → 2024-01-09 10:36 | Outpatient (BNVA) | payer MEDICARE, SELFPAY | PROVIDERS: PCP Family Medicine; Visit Provider Internal Medicine ==

== ENCOUNTER → 2024-01-15 15:09 | Outpatient (BNVA) | payer MEDICARE, SELFPAY | PROVIDERS: PCP Family Medicine; Visit Provider Internal Medicine ==

== ENCOUNTER 2024-01-23 14:59 | Outpatient (AMB) | payer MEDICARE, SELFPAY ==
--- NOTE | 2024-01-23 15:02 | MHC.PC.OV ---
Vital Signs 01/23/24 15:05 01/23/24 15:32 Height 5 ft 5 in Weight 153 lb 8 oz BMI 25.5 BP 118/64 Blood Pressure Location Rt brachial Position Sitting Respiration 14 Pulse 114 H 94 Pulse Source Pulse Oximeter Temp 97.8 F Temp Source Temporal Artery Scan Pulse Oximetry (%) 96 Oxygen Delivery Method Nasal Cannula Intake Visit Reasons: HDF Channel Marketing Specialist Required: No Accompanied by: Self / Same As Patient Allergies Seasonal Allergies Allergy (Severe, Verified 01/23/24 15:16) Itchy Eyes house dust Allergy (Intermediate, Verified 01/23/24 15:16) Sneezing aspirin Allergy (Unknown, Verified 01/23/24 15:16) Sick codeine [CODEINE] Adverse Reaction (Intermediate, Verified 01/23/24 15:16) NAUSEA & VOMITING ibuprofen [From ADVIL] Adverse Reaction (Intermediate, Verified 01/23/24 15:16) NAUSEA & VOMITING Medication List - Last Reconciled 01/23/24 by Darien Noyola CNP albuterol sulfate 2.5 mg (3 mL) inhalation Q4H albuterol sulfate 90 mcg/actuation (Ventolin HFA) 1 puff inhalation QID PRN 30 days alendronate 70 mg PO QWEEK 28 days aspirin (Enteric Coated Aspirin) 81 mg PO DAILY atorvastatin 80 mg PO BEDTIME [calcium with d PO] cephalexin 500 mg PO Q12H 10 days diltiazem HCl CD (Cardizem CD) 180 mg PO BID 90 days fluticasone propion-salmeterol 500-50 mcg/dose 1 inh inhalation BID 30 days fluticasone propionate 50 mcg/actuation (Flonase Allergy Relief) 1 spray intranasal Q12H 30 days levothyroxine 137 mcg PO DAILY 90 days magnesium oxide 200 mg PO DAILY miscellaneous medical supply Xpro Ostomy Pouch, As directed, One month supply miscellaneous medical supply Ostomy Skin Barrier Ring, 1/16 inch thickness, As directed, 1 month Supply miscellaneous medical supply Ostomy SafenSimple No-Sting Skin Barrier Film, As directed, 30 day supply montelukast 10 mg PO DAILY [multivitamin PO] nystatin mL PO PRN omeprazole 20 mg PO DAILY 90 days ondansetron 4 mg PO Q8H PRN 5 days pantoprazole (Protonix) 40 mg PO DAILY potassium chloride ER 20 mEq PO TID sennosides (senna) 17.2 mg PO DAILY tiotropium bromide (Spiriva with HandiHaler) 1 cap inhalation DAILY 30 days tiotropium bromide (Spiriva with HandiHaler) 1 cap inhalation DAILY torsemide 20 mg PO DAILY 90 days warfarin 5 mg See Protocol PO DAILY 90 days Tobacco use date assessed: 09/11/23 Fall risk assessment: No Falls in past year Last assessed Fall Risk: 01/23/24 Dental Screening Dental Screen Date: 01/23/24 Did you have a dental visit in the last 12 months?: No Did you have a dental problem in the last 6 months where you did not have access to dental care?: No Was dental information given to patient?: Patient has dentist HPI HPI Comments History of Present Illness Details 78-year-old female presents for a HDF. She notes that she was recently hospitalized at [facility] for 3 weeks in November, for severe vomiting. She notes that she was found to have blockage in her rectum. She had a UTI after she was discharged home from the hospital; vna took urine sample an sent to she lab; she took abx as prescribed by her PCP and her symptoms resolved. She a follow up appt with [facility] next month. She offers no complaints and denies acute symptoms at this time. [facility] Medical History Hypoxemia Allergic rhinitis Pleural effusion Nocturnal hypoxemia Exercise hypoxemia Chronic atrial fibrillation Prosthetic valve dysfunction Nocturnal hypoxemia COPD (chronic obstructive pulmonary disease) COPD (chronic obstructive pulmonary disease) (HFpEF) heart failure with preserved ejection fraction GERD (gastroesophageal reflux disease) Hypothyroid Hyperlipidemia Asthma Surgical History Hx of abdominal surgery History of hernia surgery History of salpingo-oophorectomy History of carpal tunnel release History of hysterectomy History of colonoscopy History of mechanical aortic valve replacement (~2002) Family History Mother No problems noted. Father Myocardial infarction CAD (coronary artery disease) Brother Myocardial infarction Brother Myocardial infarction Social History Housing: Other (Mobile home) Housing Other:: Mobile Home Alcohol intake: never Patient Tobacco Use Status: Never used Tobacco e-Cigarette/Vaping Use: Never Used Second Hand Smoke Exposure: No service: No Current occupational status: retired Current occupational exposures/hazards: No Cognitive needs: No Hearing needs: No Vision needs: No Questionnaire Thrive Questionnaire Date Thrive assessed: 06/30/22 BECKY-7 AMB Questionnaire BECKY-7 Date BECKY - 7 assessed: 06/30/22 Source: Developed by Drs. Gurmeet Acuña, Antoinette Shafer, Bao Gutierrez and colleagues, with an educational flaco from [employer]. Review of Systems Const Details: Const Denies chills, Denies fatigue, Denies fever(s), Denies headache(s) and Denies weakness ENT Denies dizziness and Denies headache(s) Card Denies chest pain, Denies lightheadedness, Denies dyspnea and Denies other (Palpitations) Resp Denies cough, Denies dyspnea, Denies wheezing and Denies other ( shortness of breath) GI Denies abdominal pain, Denies melena, Denies hematochezia, Denies change in bowel habits, Denies dyspepsia, and denies nausea Denies hematuria and Denies dysuria Musc Denies abnormal gait, Denies myalgias, Denies arthralgias, Denies numbness and Denies tingling Skin/Breast Denies rash, Denies unusual bruising and Denies wounds Neuro Denies abnormal gait, Denies dizziness, Denies headache(s), Denies memory loss, Denies numbness, Denies Sensory deficit (Neuro), Denies tingling and Denies weakness Psych Denies anxiety, Denies depression, Denies memory loss Endo Denies cold intolerance, Denies fatigue, Denies heat intolerance, Denies polydipsia and Denies polyuria Aller/Immun Denies wheezing Physical exam (Primary Care) Vital Signs: Last Vital Signs Temp 97.8 F 01/23/24 15:05 Pulse 114 H 01/23/24 15:05 Resp 14 01/23/24 15:05 BP 118/64 01/23/24 15:05 Pulse Ox 96 01/23/24 15:05 Oxygen Delivery Method Nasal Cannula 01/23/24 15:05 BMI result Body Mass Index 25.5 Tobacco/Smoking Status: Tobacco use Status Tobacco use date assessed 09/11/23 01/23/24 15:03 Patient Tobacco Use Status Never used Tobacco 01/23/24 15:03 e-Cigarette/Vaping Use Never Used 01/23/24 15:03 Thrive Assessment: Date of Thrive Assessment Date Thrive assessed 06/30/22 01/23/24 15:03 Const Other: General: no acute distress and well developed Nutritional Appearance: well nourished Orientation/consciousness: patient oriented x3 HENMT Head: Yes normocephalic and Yes atraumatic Eyes General: appearance normal, both eyes and all related structures Pupils: Equal, round and reactive pupils present EOM: EOMs intact bilaterally Resp Effort & Inspection: normal respiratory effort Auscultation: clear to auscultation bilaterally Cardio Rate: regular rate Rhythm: regular rhythm Heart sounds: S1 normal heart sound present, S2 normal heart sound present, no gallops, no murmurs and no rubs GI Palpation (GI): No Abdominal aortic bruit present, Soft to palpation, nontender, No hepatosplenomegaly present and No Rebound tenderness present Auscultation: normal bowel sounds General: Yes no CVA tenderness Back/Spine/Pelvis Back: no CVA tenderness Cervical Spine: cervical ROM normal and No Cervical spine tenderness Thoracic/Lumbar Spine: thoraco-lumbar ROM normal, No pain with thoraco-lumbar ROM, No thoracic spinal tenderness and No lumbar spinal tenderness Extrem General: Yes normal to inspection, No edema and No calf tenderness Skin General: warm and dry. Normal skin color. Normal skin turgor Neuro General: patient oriented x3, gait normal and no focal neuro deficit Cranial nerves: Yes Equal, round and reactive pupils present Cognition (Neuro): normal cognition Gait exam (Neuro): Normal gait present Sensory Exam: No Sensory deficit (Neuro) Psych Appearance: grossly normal Affect: normal affect Attitude: cooperative Thought process: Normal thought process present Assessment and Plan Assessment & Plan (1) Hospital discharge follow-up: Code(s): Z09 - Encounter for follow-up examination after completed treatment for conditions other than malignant neoplasm Plan: She was admitted at [facility] x3 weeks in November for GI symptoms. Her symptoms completely resolved No acute symptoms at this time Continue current treatment regimen Follow-up with urology as planned Follow-up with 1-2 months for chronic conditions or sooner with symptoms or concerns Verbalized understanding and agreed with the treatment plan Coding Level of Care Code Est Pt Level 3 (10088) Diagnoses Hospital discharge follow-up Z09
[2024-01-23 15:05] VITALS: BP 118/64; PULSE 114; RESP 14; TEMP 36.6; O2SAT 96; BMI 25.5
[2024-01-23 15:32] VITALS: PULSE 94
== END 2024-01-23 15:45 | disposition home or self-care (01) ==
PROVIDERS: PCP Family Medicine; Visit Provider Nurse Practitioner Family
DX: Z09 Encounter for follow-up examination after completed treatment for conditions other than malignant neoplasm (principal)
CPT/HCPCS: 99213

== ENCOUNTER → 2024-01-24 11:58 | Outpatient (BNVA) | payer MEDICARE, SELFPAY | PROVIDERS: PCP Family Medicine; Visit Provider Internal Medicine ==

== ENCOUNTER → 2024-01-31 14:49 | Outpatient (BNVA) | payer MEDICARE, SELFPAY | PROVIDERS: PCP Family Medicine; Visit Provider Internal Medicine ==

== ENCOUNTER → 2024-02-07 10:46 | Outpatient (BNVA) | payer MEDICARE, SELFPAY | PROVIDERS: PCP Family Medicine; Visit Provider Internal Medicine ==

== ENCOUNTER → 2024-02-14 09:44 | Outpatient (BNVA) | payer MEDICARE, SELFPAY | PROVIDERS: PCP Family Medicine; Visit Provider Internal Medicine ==

== ENCOUNTER → 2024-02-21 11:31 | Outpatient (BNVA) | payer MEDICARE, SELFPAY | PROVIDERS: PCP Family Medicine; Visit Provider Internal Medicine ==

== ENCOUNTER → 2024-02-28 09:56 | Outpatient (BNVA) | payer MEDICARE, SELFPAY | PROVIDERS: PCP Family Medicine; Visit Provider Internal Medicine ==

== ENCOUNTER 2024-03-05 13:57 | Outpatient (AMB) | payer MEDICARE, SELFPAY ==
[2024-03-05 14:19] VITALS: BP 110/60; PULSE 130; O2SAT 97; BMI 24.6
--- NOTE | 2024-03-05 14:19 | MHC.OFFVIS ---
Vital Signs 03/05/24 14:19 Height 5 ft 5 in Weight 148 lb BMI 24.6 BP 110/60 Blood Pressure Location Lt brachial Position Sitting Pulse 130 H Pulse Source Pulse Oximeter Pulse Oximetry (%) 97 Oxygen Delivery Method Nasal Cannula Oxygen Flow Rate 2 Intake Visit Reasons: COPD Intake Note: pt is here for follow up and states she is feeling okay with breathing Foiling Machine Adjuster Required: No Allergies Seasonal Allergies Allergy (Severe, Verified 03/05/24 14:35) Itchy Eyes house dust Allergy (Intermediate, Verified 03/05/24 14:35) Sneezing aspirin Allergy (Unknown, Verified 03/05/24 14:35) Sick codeine [CODEINE] Adverse Reaction (Intermediate, Verified 03/05/24 14:35) NAUSEA & VOMITING ibuprofen [From ADVIL] Adverse Reaction (Intermediate, Verified 03/05/24 14:35) NAUSEA & VOMITING Medication List - Last Reconciled 03/05/24 by Gretel Dorman MD albuterol sulfate 2.5 mg (3 mL) inhalation Q4H albuterol sulfate 90 mcg/actuation (Ventolin HFA) 1 puff inhalation QID PRN 30 days alendronate 70 mg PO QWEEK 28 days aspirin (Enteric Coated Aspirin) 81 mg PO DAILY atorvastatin 80 mg PO BEDTIME [calcium with d PO] diltiazem HCl CD (Cardizem CD) 180 mg PO BID 90 days fluticasone propion-salmeterol 500-50 mcg/dose 1 inh inhalation BID 30 days fluticasone propionate 50 mcg/actuation (Flonase Allergy Relief) 1 spray intranasal Q12H 30 days levothyroxine 137 mcg PO DAILY 90 days magnesium oxide 200 mg PO DAILY miscellaneous medical supply Xpro Ostomy Pouch, As directed, One month supply miscellaneous medical supply Ostomy Skin Barrier Ring, 1/16 inch thickness, As directed, 1 month Supply miscellaneous medical supply Ostomy SafenSimple No-Sting Skin Barrier Film, As directed, 30 day supply montelukast 10 mg PO DAILY [multivitamin PO] nystatin mL PO PRN omeprazole 20 mg PO DAILY 90 days ondansetron 4 mg PO Q8H PRN 5 days pantoprazole (Protonix) 40 mg PO DAILY 90 days potassium chloride ER 20 mEq PO TID sennosides (senna) 17.2 mg PO DAILY tiotropium bromide (Spiriva with HandiHaler) 1 cap inhalation DAILY torsemide 20 mg PO DAILY 90 days warfarin 5 mg See Protocol PO DAILY 90 days Do you need a note to return to daycare/school/sports/work: No HPI HPI COPD: Details: DANIELLE IS 78 YEARS OLD VERY PLEASANT FEMALE WHO IS A CASE OF RELATIVELY SEVERE COPD AND COMES FOR FOLLOW-UP. SHE SAY IS THAT BREATHING GÓMEZ SHE IS DOING WELL AND THERE IS NO ISSUE. SHE IS ON O2 2 L/MINUTE 24 HOURS A DAY. AND WITH HER REGULAR REGIMEN AT THIS TIME HER COUGH IS MINIMAL SHE DENIES ANY WHEEZING, AND SHE DOES GET SHORT OF BREATH ONLY ON MODERATELY HEAVY PHYSICAL EXERTION. IN NOVEMBER OF THIS YEAR SHE WAS ADMITTED TO [facility] AND HAD INTESTINAL RESECTION TO OVERCOME INTESTINAL OBSTRUCTION. SHE MAY BE A LITTLE BIT ANEMIC SINCE THEN [facility] Medical History Hypoxemia Allergic rhinitis Pleural effusion Nocturnal hypoxemia Exercise hypoxemia Chronic atrial fibrillation Prosthetic valve dysfunction Nocturnal hypoxemia COPD (chronic obstructive pulmonary disease) COPD (chronic obstructive pulmonary disease) (HFpEF) heart failure with preserved ejection fraction GERD (gastroesophageal reflux disease) Hypothyroid Hyperlipidemia Asthma Surgical History Hx of abdominal surgery History of hernia surgery History of salpingo-oophorectomy History of carpal tunnel release History of hysterectomy History of colonoscopy History of mechanical aortic valve replacement (~2002) Family History Mother No problems noted. Father Myocardial infarction CAD (coronary artery disease) Brother Myocardial infarction Brother Myocardial infarction Social History Housing: Other (Mobile home) Housing Other:: Mobile Home Alcohol intake: never Patient Tobacco Use Status: Never used Tobacco e-Cigarette/Vaping Use: Never Used Second Hand Smoke Exposure: No service: No Current occupational status: retired Current occupational exposures/hazards: No Cognitive needs: No Hearing needs: No Vision needs: No Review of Systems Const All systems reviewed & are unremarkable except as noted in HPI and below Eyes Reports no additional complaints ENT Reports no additional complaints Card Denies chest pain, Reports irregular heart rhythm, Reports leg edema (Mild) and Reports dyspnea on exertion Resp Reports as per HPI, Denies cough, Reports dyspnea on exertion and Denies wheezing GI Reports no additional complaints Reports no additional complaints Skin/Breast Reports dry skin Neuro Reports no additional complaints Psych Reports no additional complaints Aller/Immun Denies wheezing Physical Exam Vital Signs: Last Vital Signs Pulse 130 H 03/05/24 14:19 BP 110/60 03/05/24 14:19 Pulse Ox 97 03/05/24 14:19 Oxygen Delivery Method Nasal Cannula 03/05/24 14:19 Oxygen Flow Rate 2 03/05/24 14:19 BMI result Body Mass Index 24.6 Const General: comfortable (But appears very weak), no acute distress, alert and awake Orientation/consciousness: patient oriented x3 HEENT Head: Yes normal to inspection General nose exam: No nasal polyps present and No nasal discharge present Face and sinus: Yes sinuses nontender Mouth: oropharynx normal Throat: Yes posterior oropharynx normal Eyes General: appearance normal, both eyes and all related structures Neck Neck: Yes normal visual inspection, Yes no lymphadenopathy, Yes trachea midline and Yes no JVD Thyroid: Thyroid normal Chest Chest palpation & inspection: normal inspection of the chest (Midline scar from previous open heart surgery for aortic valve replacement), normal palpation of entire chest wall and no tenderness Resp Other: Percussion note is resonant, breath sounds are very distant on both sides with prolonged expiratory phase. Lungs are basically clear and no wheezes or crepitations today Cardio Palpation: normal PMI Rate: regular rate Rhythm: regular rhythm Heart sounds: Clicking heart sound present (Metallic heart sounds), no gallops and no murmurs GI Palpation (GI): Soft to palpation, nontender, No hepatosplenomegaly present, no masses and Other GI palpation findings present (Colostomy bag in the left upper quadrant,a few areas of ventral herniation) Auscultation: normal bowel sounds Back/Spine/Pelvis Thoracic/Lumbar Spine: thoracic and lumbar spine normal to inspection and thoraco-lumbar ROM limited Skin General skin exam: no rashes or lesions noted and dry skin Neuro General: patient oriented x3 and no focal motor deficits Cranial nerves: Yes CN's II-XII intact bilaterally Extrem General: Yes normal to inspection, Yes no calf tenderness and Yes edema (1+ edema around the ankles) Psych Appearance: grossly normal and well kempt Speech and movement: Normal speech and movement present Assessment & Plan Assessment & Plan (1) COPD (chronic obstructive pulmonary disease): Comment: PATIENT DOES HAVE MODERATELY SEVERE CHRONIC OBSTRUCTIVE PULMONARY DISORDER, HAS BEEN RELATIVELY STABLE. Code(s): J44.9 - Chronic obstructive pulmonary disease, unspecified Category: Medical Plan: Advised to continue using her current regimen which is as follows Spiriva HandiHaler 1 capsule daily Albuterol HFA 2 puffs Q 4-6 hours p.r.n.. Alternatively may use albuterol solution in the nebulizer Q 6 hours p.r.n.. (2) Hypoxemia: Comment: PATIENT HAS NOCTURNAL HYPOXEMIA, WELL EXERCISE INDUCED HYPOXEMIA. SHE IS USING O2 2 L/MINUTE AT NIGHT AND ALSO WITH PORTABLE UNIT DURING THE DAYTIME, Code(s): R09.02 - Hypoxemia Category: Medical Plan: USE O2 INSTRUCTED ABOVE (3) Allergic rhinitis: Comment: Patient has ongoing chronic allergic rhinitis, which is well controlled with current medical regimen. SHE ALSO FOLLOWS UP WITH ALLERGY SPECIALISTS. Code(s): J30.9 - Allergic rhinitis, unspecified Category: Medical Plan: MONTELUKAST 10 MG DAILY FLONASE NASAL SPRAY 2 SPRAYS IN EACH NOSTRIL DAILY Coding Level of Care Code Est Pt Level 3 (45944) Diagnoses COPD (chronic obstructive pulmonary disease) J44.9 Hypoxemia R09.02 Allergic rhinitis J30.9
== END 2024-03-05 14:36 | disposition home or self-care (01) ==
PROVIDERS: PCP Family Medicine; Visit Provider Internal Medicine
DX: J44.9 Chronic obstructive pulmonary disease, unspecified (principal); R09.02 Hypoxemia; J30.9 Allergic rhinitis, unspecified
CPT/HCPCS: 99213

== ENCOUNTER → 2024-03-05 13:57 | Outpatient (BNVA) | payer MEDICARE, SELFPAY | PROVIDERS: PCP Family Medicine; Visit Provider Internal Medicine | DX: J44.9 Chronic obstructive pulmonary disease, unspecified (principal); J30.9 Allergic rhinitis, unspecified; R09.02 Hypoxemia; Z79.899 Other long term (current) drug therapy | CPT/HCPCS: 99212 ==

== ENCOUNTER → 2024-03-06 08:44 | Outpatient (BNVA) | payer MEDICARE, SELFPAY | PROVIDERS: PCP Family Medicine; Visit Provider Internal Medicine ==

== ENCOUNTER → 2024-03-13 10:48 | Outpatient (BNVA) | payer MEDICARE, SELFPAY | PROVIDERS: PCP Family Medicine; Visit Provider Internal Medicine ==

== ENCOUNTER → 2024-03-15 13:48 | Outpatient (REF) | payer MEDICARE, SELFPAY ==
--- NOTE | 2024-03-15 13:51 | CA_ITS ---
Transthoracic Echocardiogram Patient (Last, First, Middle): Danielle Barrera A Gender: Female Date of : 1945 Age: 78 Procedure Date: 03/15/2024 Procedure Type: Transthoracic Echocardiogram Location: OP Height: 165.1 cm Weight: 67.13 kg BSA: 1.74 m2 Heart Rate: 81 bpm BP: 112 / 64 mmHg Railroad Switchman: SB Referring MD: Darius Spicer MD Symptoms: T82.09XA - Other mechanical complication of heart valve prosthesis, init... Study Quality: Adequate ECG Rhythm: Atrial Fibrillation Conclusions: - Normal left ventricular size and systolic function. There is mildly increased left ventricular wall thickness. The visually estimated ejection fraction is between 55-60%. - Normal right ventricular cavity size. There is borderline right ventricular systolic function. - The left atrium is severely dilated. The right atrium is moderately dilated. - A mechanical prosthetic aortic valve is present. The peak aortic velocity is 2.74 m/s with a calculated peak gradient of 30 mmHg. The mean gradient is 17 mmHg. There is no aortic valve regurgitation. Patient has known patient prosthesis mismatch. Findings Left Ventricle Normal left ventricular size and systolic function. There is mildly increased left ventricular wall thickness. The visually estimated ejection fraction is between 55-60%. There is no evidence of regional wall motion abnormalities. There is paradoxical septal motion consistent with post-operative status. Diastolic function is indeterminate on the basis of available data. Right Ventricle Normal right ventricular cavity size. There is borderline right ventricular systolic function. Atria The left atrium is severely dilated. The right atrium is moderately dilated. Aortic Valve A mechanical prosthetic aortic valve is present. The peak aortic velocity is 2.74 m/s with a calculated peak gradient of 30 mmHg. The mean gradient is 17 mmHg. There is no aortic valve regurgitation. Patient has known patient prosthesis mismatch. Mitral Valve There is severe mitral annular calcification. There is trace mitral valve regurgitation. There is no mitral valve stenosis. Pulmonic Valve The pulmonic valve is normal. There is no pulmonic valve regurgitation. Tricuspid Valve Normal tricuspid valve structure. There is mild tricuspid valve regurgitation. Normal right atrial pressure. There is no evidence of pulmonary hypertension. Great Vessels The visualized portions of the pulmonary artery and branches are normal. Venous The inferior vena cava is normal in size and collapses greater than 50% with inspiration. Pericardium/Pleural There is no evidence of pericardial effusion. Prior Study Comparison No significant change compared to prior study dated: 03/25/2022. Measurements 2D Linear Measurements IVSd: 1.00 0.6-0.9/0.6-1.0 cm LVIDd: 5.47 3.9-5.3/4.2-5.9 cm LVIDd Index: 3.14 2.4-3.2/2.2-3.1 cm/m2 LVIDs: 4.17 2.0-3.6 cm LVPWd: 0.90 0.7-1.1 cm LA Diam: 4.70 2.7-3.8/3.0-4.0 cm LAIDs Index: 2.70 1.5-2.3 cm/m2 LV Mass: 245.44 67-162/88-224 g LV Mass Index: 141.06 43-95/49-115 g/m2 LVOT Diam: 1.90 3.0+(-)1.3 cm 2D Systolic Function EF 4C: 45.00 >55% EF 2C: 78.00 >55% EF BiP: 66.90 >55% Mitral Valve MV VTI: 0.26 MV Pk Chalo: 1.45 MV Mn Chalo: 0.90 MV Pk Grad: 8.00 MV Mn Grad: 4.00 MV Pk E: 1.46 E'Lateral: 11.40 E'Medial: 7.44 E/E' Med: 19.60 E/E' Lat: 12.80 MVA Continuity: 1.68 Aortic Valve AoV Pk Chalo: 2.74 AoV Mn Chalo: 1.99 AoV VTI: 0.54 AoV Pk Grad: 30.00 Aov Mn Grad: 17.00 FRANCISCO Cont.VTI: 0.81 LVOT LVOT Pk Chalo: 0.80 LVOT Mn Chalo: 0.60 LVOT VTI: 0.16 LVOT Pk Grad: 3.00 LVOT Mn Grad: 2.00 LVOT Diam: 1.90 LVOT Area: 2.84 Diastolic Function MV Pk E: 1.46 E'Medial: 7.44 E/E' Med: 19.60 E' Laterial: 11.40 E/E' Lat: 12.80 Right Ventricle TAPSE (mm): 14.30 TVS' Chalo: 9.90 Tricuspid Valve TR Pk Chalo: 2.49 TR Pk Grad: 25.00 RA Press: 8.00 RVSP: 33.00 Great Vessels Aorta Ao Asc: 3.70 2.1-3.4 cm Pulmonary Valve PV Pk Chalo: 0.81 Peak PV Grad: 3.00 Updated in Other Vendor System with Status of Final Kale Mock MD electronically signed on 03/16/2024 12:19:19 PM with status of Final
== END ==
LOC: HO.CARD 13:48
PROVIDERS: PCP Family Medicine; Visit Provider Internal Medicine Cardiovascular Disease
DX: T82.09XD Other mechanical complication of heart valve prosthesis, subsequent encounter (principal)
CPT/HCPCS: 93306

== ENCOUNTER → 2024-03-15 13:51 | Outpatient (BNV) | payer MEDICARE, SELFPAY | PROVIDERS: PCP Family Medicine; Visit Provider Internal Medicine Cardiovascular Disease | DX: T82.09XA Other mechanical complication of heart valve prosthesis, initial encounter (principal); I51.7 Cardiomegaly; I34.81 Nonrheumatic mitral (valve) annulus calcification; I36.1 Nonrheumatic tricuspid (valve) insufficiency | CPT/HCPCS: 93306 ==

== ENCOUNTER 2024-03-20 13:18 | Outpatient (AMB) | payer MEDICARE, SELFPAY ==
[2024-03-20 13:29] LABS: Prothrombin Time Whole Bld POC 39.6 sec (11.1-13.5); ~PT, ~INR - Anti Coag Clinic 3.3 (0.9-1.1)
--- NOTE | 2024-03-20 13:32 | MHC.OFFVISCO ---
Intake Intake Visit Reasons: Anticoagulation Allergies Seasonal Allergies Allergy (Severe, Verified 03/15/24 10:34) Itchy Eyes house dust Allergy (Intermediate, Verified 03/20/24 13:20) Sneezing aspirin Allergy (Unknown, Verified 03/20/24 13:20) Sick codeine [CODEINE] Adverse Reaction (Intermediate, Verified 03/20/24 13:20) NAUSEA & VOMITING ibuprofen [From ADVIL] Adverse Reaction (Intermediate, Verified 03/20/24 13:20) NAUSEA & VOMITING Medication List - Last Reconciled 03/20/24 by Slime Carrillo RN albuterol sulfate 2.5 mg (3 mL) inhalation Q4H albuterol sulfate 90 mcg/actuation (Ventolin HFA) 1 puff inhalation QID PRN 30 days alendronate 70 mg PO QWEEK 28 days aspirin (Enteric Coated Aspirin) 81 mg PO DAILY atorvastatin 80 mg PO BEDTIME [calcium with d PO] diltiazem HCl CD (Cardizem CD) 180 mg PO BID 90 days fluticasone propion-salmeterol 500-50 mcg/dose 1 inh inhalation BID 30 days fluticasone propionate 50 mcg/actuation (Flonase Allergy Relief) 1 spray intranasal Q12H 30 days levothyroxine 137 mcg PO DAILY 90 days magnesium oxide 200 mg PO DAILY miscellaneous medical supply Xpro Ostomy Pouch, As directed, One month supply miscellaneous medical supply Ostomy Skin Barrier Ring, 1/16 inch thickness, As directed, 1 month Supply miscellaneous medical supply Ostomy SafenSimple No-Sting Skin Barrier Film, As directed, 30 day supply montelukast 10 mg PO DAILY [multivitamin PO] nystatin mL PO PRN omeprazole 20 mg PO DAILY 90 days ondansetron 4 mg PO Q8H PRN 5 days pantoprazole (Protonix) 40 mg PO DAILY 90 days potassium chloride ER 20 mEq PO TID sennosides (senna) 17.2 mg PO DAILY sulfamethoxazole-trimethoprim 800-160 mg (Bactrim DS) 1 tab PO Q12H 5 days tiotropium bromide (Spiriva with HandiHaler) 1 cap inhalation DAILY torsemide 20 mg PO DAILY 90 days warfarin 5 mg See Protocol PO DAILY 90 days Nursing Note PTY.HERE TODAY FOR METER TO METER CHECK. PT.DEMONSTRATED GOOD TECHNIQUE. NO CP,SOB,DIET/MED CHANGES OR SX OF BLEEDING. DECREASE DOSE ELIGHTLY TODAY THEN RESUME USUAL DOSE AND RETEST AT HOME IN 1 WEEK. GOOD UNDERSTANDING VERB. Anti-Coag Initial Assessment Social Hx Patient Tobacco Use Status: Never used Tobacco alcohol intake: never Questionnaires HAS-BLED Does the patient had uncontrolled Hypertension?: No Does the patient have renal disease?: No Does the patient have liver disease?: No Does the patient have a history of stroke?: No Has the patient had major bleeding or predisposition to bleeding?: Yes Does the patient have labile INRs?: Yes Is the patient over 65 years of age?: Yes Is the patient on medications that gives them a predisposition to bleeding?: Yes Does the patient use alcohol?: No HAS-BLED Score: 4 CHADSVASC Age: 75 or over Gender: Female Does the patient have a history of CHF?: Yes Does the patient have a history of Hypertension?: Yes Does the patient have a history of Stroke/TIA/Thromboembolism?: No Does the patient have a history of Vascular Disease (prior IA, PAD or aortic plaque)?: No Does the patient have a history of Diabetes?: No CHADS VACS Score: 5 Hair Prediction Score Rsk VTE Active Cancer: No Previous VTE, excluding superficial vein thrombosis: No Reduced mobility: No Already known Thrombophilic Condition: No With-in last month Trauma and/or Surgery: No Elderly 70 year or older: Yes Heart and/or Respiratory Failure: Yes Acute Myocardial infarction and/or Ischemic Stroke: No Acute Infection and/or Rheumatologic Disorder: No Obesity (BMI 30 or greater): No Ongoing Hormonal Treatment: No Score: 2 Hair Score less than 4; Low Risk of VTE Hair Score 4 or greater; High Risk of VTE Coding Level of Care Code Est Patient Level 2 Diagnoses Current use of anticoagulant therapy Z79.01 Results AMB INR Fingerstick AMB INR Fingerstick 3.3 Last Edit by Slime Carrillo RN on 03/20/24 13:30 Assessment & Plan Assessment & Plan (1) Current use of anticoagulant therapy: Code(s): Z79.01 - half-way (current) use of anticoagulants Category: Medical
== END 2024-03-20 13:45 | disposition home or self-care (01) ==
LOC: HO.ACS 13:18
PROVIDERS: PCP Family Medicine; Visit Provider Internal Medicine
DX: Z79.01 Long term (current) use of anticoagulants (principal)

== ENCOUNTER → 2024-03-20 13:18 | Outpatient (BNVA) | payer MEDICARE, SELFPAY | PROVIDERS: PCP Family Medicine; Visit Provider Internal Medicine | DX: I48.20 Chronic atrial fibrillation, unspecified (principal); Z79.01 Long term (current) use of anticoagulants; Z51.81 Encounter for therapeutic drug level monitoring | CPT/HCPCS: 85610; 99212 ==

== ENCOUNTER 2024-03-21 14:19 | Outpatient (AMB) | payer MEDICARE, SELFPAY ==
[2024-03-21 14:21] VITALS: BP 120/72; PULSE 89; BMI 25.3
--- NOTE | 2024-03-21 14:21 | MHC.OFFVIS ---
Vital Signs 03/21/24 14:21 Height 5 ft 5 in Weight 152 lb 1.903 oz BMI 25.3 BP 120/72 Blood Pressure Location Lt brachial Position Sitting Pulse 89 Intake Visit Reasons: 6 mth f/up echo Intake Note: 6 month follow-up with ekg after echo feeling fatigued Tig Welder Required: No Allergies Seasonal Allergies Allergy (Severe, Verified 03/15/24 10:34) Itchy Eyes house dust Allergy (Intermediate, Verified 03/20/24 13:20) Sneezing aspirin Allergy (Unknown, Verified 03/20/24 13:20) Sick codeine [CODEINE] Adverse Reaction (Intermediate, Verified 03/20/24 13:20) NAUSEA & VOMITING ibuprofen [From ADVIL] Adverse Reaction (Intermediate, Verified 03/20/24 13:20) NAUSEA & VOMITING Medication List - Last Reconciled 03/21/24 by Darisu Spicer MD albuterol sulfate 2.5 mg (3 mL) inhalation Q4H albuterol sulfate 90 mcg/actuation (Ventolin HFA) 1 puff inhalation QID PRN 30 days alendronate 70 mg PO QWEEK 28 days aspirin (Enteric Coated Aspirin) 81 mg PO DAILY atorvastatin 80 mg PO BEDTIME [calcium with d PO] diltiazem HCl CD (Cardizem CD) 180 mg PO BID 90 days fluticasone propion-salmeterol 500-50 mcg/dose 1 inh inhalation BID 30 days fluticasone propionate 50 mcg/actuation (Flonase Allergy Relief) 1 spray intranasal Q12H 30 days levothyroxine 137 mcg PO DAILY 90 days magnesium oxide 200 mg PO DAILY miscellaneous medical supply Xpro Ostomy Pouch, As directed, One month supply miscellaneous medical supply Ostomy Skin Barrier Ring, 1/16 inch thickness, As directed, 1 month Supply miscellaneous medical supply Ostomy SafenSimple No-Sting Skin Barrier Film, As directed, 30 day supply montelukast 10 mg PO DAILY [multivitamin PO] nystatin mL PO PRN omeprazole 20 mg PO DAILY 90 days ondansetron 4 mg PO Q8H PRN 5 days pantoprazole (Protonix) 40 mg PO DAILY 90 days potassium chloride ER 20 mEq PO TID sennosides (senna) 17.2 mg PO DAILY PRN tiotropium bromide (Spiriva with HandiHaler) 1 cap inhalation DAILY torsemide 20 mg PO DAILY 90 days warfarin 5 mg See Protocol PO DAILY 90 days HPI Comments Details: Danielle comes for follow-up. Overall she says she had been doing well over the last few weeks she has been getting more short of breath. She does not measure her weight at home she says her scale is broken. She is using oxygen around the clock although not all the time. She has notice some leg swelling. No abdominal distension. No clear orthopnea, PND. She denies any palpitations. No irregular heartbeat. No bleeding issues or neurologic events. Currently accompanying off antibiotics. Using her nebulizers every day. Recent echocardiogram shows biatrial enlargement as expected. Severe left atrial enlargement. Normal LV ejection fraction. 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 [facility] Medical History Hypoxemia Allergic rhinitis Pleural effusion Nocturnal hypoxemia Exercise hypoxemia Chronic atrial fibrillation Prosthetic valve dysfunction Nocturnal hypoxemia COPD (chronic obstructive pulmonary disease) COPD (chronic obstructive pulmonary disease) (HFpEF) heart failure with preserved ejection fraction GERD (gastroesophageal reflux disease) Hypothyroid Hyperlipidemia Asthma Surgical History Hx of abdominal surgery History of hernia surgery History of salpingo-oophorectomy History of carpal tunnel release History of hysterectomy History of colonoscopy History of mechanical aortic valve replacement (~2002) Family History Mother No problems noted. Father Myocardial infarction CAD (coronary artery disease) Brother Myocardial infarction Brother Myocardial infarction Social History Housing: Other (Mobile home) Housing Other:: Mobile Home Alcohol intake: never Patient Tobacco Use Status: Never used Tobacco e-Cigarette/Vaping Use: Never Used Second Hand Smoke Exposure: No service: No Current occupational status: retired Current occupational exposures/hazards: No Cognitive needs: No Hearing needs: No Vision needs: No Review of Systems Const Denies chills, Denies fatigue, Denies fever(s), Denies frequent falls, Denies weakness, Denies weight gain and Denies weight loss ENT Denies dizziness Card Denies chest pain, Denies leg edema, Denies lightheadedness, Denies palpitations, Denies dyspnea, Denies dyspnea on exertion, Denies orthopnea and Denies other (loss of consciousness) Resp Denies cough, Denies dyspnea and Denies dyspnea on exertion GI Denies hematochezia and Denies change in stool character Musc Denies abnormal gait, Denies muscle weakness, Denies numbness, Denies radiating pain into limb and Denies tingling Neuro Denies abnormal gait, Denies dizziness, Denies frequent falls, Denies numbness, Denies tingling and Denies weakness Endo Denies fatigue and Denies palpitations Physical Exam Vital Signs: Last Vital Signs Pulse 89 03/21/24 14:21 BP 120/72 03/21/24 14:21 BMI result Body Mass Index 25.3 Const General: comfortable (But appears very weak), no acute distress, alert and awake Orientation/consciousness: patient oriented x3 HEENT Head: Yes normal to inspection General nose exam: No nasal polyps present and No nasal discharge present Face and sinus: Yes sinuses nontender Mouth: oropharynx normal Throat: Yes posterior oropharynx normal Eyes General: appearance normal, both eyes and all related structures Neck Neck: Yes normal visual inspection, Yes no lymphadenopathy, Yes trachea midline and Yes no JVD Chest Chest palpation & inspection: normal inspection of the chest (Midline scar from previous open heart surgery for aortic valve replacement), normal palpation of entire chest wall and no tenderness Resp Other: Percussion note is resonant, breath sounds are very distant on both sides with prolonged expiratory phase. No wheezes rhonchi or crepitations are heard. Auscultation: diminished lung sounds bilateral in the lower lung triana Cardio Jugular venous distension: other (Mild JVD) Palpation: normal PMI Rhythm: abnormal rhythm irregularly irregular Heart sounds: S1 normal heart sound present, Clicking heart sound present (Metallic heart sounds), no gallops and no murmurs GI Palpation (GI): Soft to palpation, nontender, No hepatosplenomegaly present, no masses and Other GI palpation findings present (Colostomy bag in the left upper quadrant,a few areas of ventral herniation) Auscultation: normal bowel sounds Back/Spine/Pelvis Thoracic/Lumbar Spine: thoracic and lumbar spine normal to inspection and thoraco-lumbar ROM limited Skin General skin exam: no rashes or lesions noted and dry skin Neuro General: patient oriented x3 and no focal motor deficits Cranial nerves: Yes CN's II-XII intact bilaterally Extrem General: Yes normal to inspection, Yes no calf tenderness, No clubbing, No cyanosis and Yes edema (1-2 + edema around the ankles) Psych Appearance: grossly normal and well kempt Speech and movement: Normal speech and movement present Assessment & Plan Assessment & Plan (1) (HFpEF) heart failure with preserved ejection fraction: Comment: It seems to be under control at this time. She is being followed by Cardiology very regularly. Code(s): I50.30 - Unspecified diastolic (congestive) heart failure Category: Medical Plan: Heart failure preserved ejection fraction, clinically appears to be mildly fluid overloaded. Advised to use additional diuretic for the next few days. Strongly advised to invest in a weighing scale to help with management of her heart failure syndrome. Avoidance of salt loading was discussed. Continue daily weight monitoring. Continue aggressive blood pressure control. Continue current rate control. (2) Chronic atrial fibrillation: Code(s): I48.20 - Chronic atrial fibrillation, unspecified Category: Medical Plan: Chronic rate control atrial fibrillation. Continue rate control with diltiazem therapy. Continue full oral anticoagulation, currently on warfarin therapy. Maintain target INR between 2.5 and 3.5. (3) Prosthetic valve dysfunction: Comment: last echo April 2020 showed mean gradient of 22 mm of mercury Code(s): T82.09XA - Other mechanical complication of heart valve prosthesis, initial encounter Category: Medical Plan: Prosthetic aortic valve in place with increased gradient suggestive of patient prosthesis mismatch which has remained stable. No interventions required. Continue SBE prophylaxis as per [facility] guidelines. Continue warfarin therapy being followed at home and she reports it to [facility]. Follow up in the clinic in 6 months time, sooner p.r.n.. Thank you for allowing me to partake in her care Coding Level of Care Code Est Pt Level 4 (63970) Diagnoses (HFpEF) heart failure with preserved ejection fraction I50.30 Chronic atrial fibrillation I48.20 Prosthetic valve dysfunction T82.09XA
== END 2024-03-21 14:42 | disposition home or self-care (01) ==
PROVIDERS: PCP Family Medicine; Visit Provider Internal Medicine Cardiovascular Disease
DX: I50.30 Unspecified diastolic (congestive) heart failure (principal); I48.20 Chronic atrial fibrillation, unspecified; T82.09XA Other mechanical complication of heart valve prosthesis, initial encounter
CPT/HCPCS: 99214

== ENCOUNTER → 2024-03-21 14:19 | Outpatient (BNVA) | payer MEDICARE, SELFPAY | PROVIDERS: PCP Family Medicine; Visit Provider Internal Medicine Cardiovascular Disease | DX: I50.30 Unspecified diastolic (congestive) heart failure (principal); I48.20 Chronic atrial fibrillation, unspecified; T82.09XD Other mechanical complication of heart valve prosthesis, subsequent encounter | CPT/HCPCS: 99212 ==

== ENCOUNTER 2024-03-25 14:42 | Outpatient (AMB) | payer MEDICARE, SELFPAY ==
--- NOTE | 2024-03-25 14:44 | A.OFFPC_ITS ---
Vital Signs 03/25/24 14:56 Height 5 ft 4.45 in Weight 151 lb 6 oz BMI 25.6 BP 120/58 L Blood Pressure Location Rt brachial Position Sitting Respiration 18 Pulse 104 H Pulse Source Pulse Oximeter Temp 97.9 F Temp Source Tympanic Pulse Oximetry (%) 97 Oxygen Delivery Method Nasal Cannula Oxygen Flow Rate 2 Intake Visit Reasons: chronic conditions Allergies Seasonal Allergies Allergy (Severe, Verified 03/25/24 14:50) Itchy Eyes house dust Allergy (Intermediate, Verified 03/25/24 14:50) Sneezing aspirin Allergy (Unknown, Verified 03/25/24 14:50) Sick codeine [CODEINE] Adverse Reaction (Intermediate, Verified 03/25/24 14:50) NAUSEA & VOMITING ibuprofen [From ADVIL] Adverse Reaction (Intermediate, Verified 03/25/24 14:50) NAUSEA & VOMITING Tobacco use date assessed: 09/11/23 Dental Screening Dental Screen Date: 01/23/24 HPI chronic conditions HPI Details 78 y/o female presents to f/u chronic co nditions incudling heart failure. Had seen Dr. Spicer 03/21/24 for heart failure/chronic AFib and prosthetic valve dysfunction. She follows up with them in 6 months Some swelling to her lower extremities. She continues to put her feet/ankles up when she gets home. She notes breathing recently has not been so good but is better today. Continues to f/u with pulmonology for COPD. HPI Comments History of Present Illness Details Documentation assistance for Marty Bernal MD, was provided by Mc Delacruz, Impregnating Machine Operator on 03/25/2024 at 3:37 PM EST. I, Dr. Bernal, have read, observed, and verified documentation. [facility] Medical History Hypoxemia Allergic rhinitis Pleural effusion Nocturnal hypoxemia Exercise hypoxemia Chronic atrial fibrillation Prosthetic valve dysfunction Nocturnal hypoxemia COPD (chronic obstructive pulmonary disease) COPD (chronic obstructive pulmonary disease) (HFpEF) heart failure with preserved ejection fraction GERD (gastroesophageal reflux disease) Hypothyroid Hyperlipidemia Asthma Surgical History Hx of abdominal surgery History of hernia surgery History of salpingo-oophorectomy History of carpal tunnel release History of hysterectomy History of colonoscopy History of mechanical aortic valve replacement (~2002) Family History Mother No problems noted. Father Myocardial infarction CAD (coronary artery disease) Brother Myocardial infarction Brother Myocardial infarction Social History Housing: Other (Mobile home) Housing Other:: Mobile Home Alcohol intake: never Patient Tobacco Use Status: Never used Tobacco e-Cigarette/Vaping Use: Never Used Second Hand Smoke Exposure: No service: No Current occupational status: retired Current occupational exposures/hazards: No Cognitive needs: No Hearing needs: No Vision needs: No Questionnaire Thrive Questionnaire Date Thrive assessed: 06/30/22 BECKY-7 AMB Questionnaire BECKY-7 Date BECKY - 7 assessed: 06/30/22 Source: Developed by Drs. Gurmeet Acuña, Antoinette Shafer, Bao Gutierrez and colleagues, with an educational flaco from [employer]. Review of Systems Const Denies chills, Denies fatigue, Denies fever(s), Denies headache(s) and Denies weakness ENT Denies dizziness and Denies headache(s) Card Denies dyspnea Resp Denies cough, Denies dyspnea, Denies wheezing and Denies other (shortness of breath) Musc Denies numbness and Denies tingling Neuro Denies dizziness, Denies headache(s), Denies numbness, Denies tingling and Denies weakness Psych Denies anxiety and Denies depression Endo Denies fatigue Aller/Immun Denies wheezing Physical exam (Primary Care) Vital Signs: Last Vital Signs Temp 97.9 F 03/25/24 14:56 Pulse 104 H 03/25/24 14:56 Resp 18 03/25/24 14:56 BP 120/58 L 03/25/24 14:56 Pulse Ox 97 03/25/24 14:56 Oxygen Delivery Method Nasal Cannula 03/25/24 14:56 Oxygen Flow Rate 2 03/25/24 14:56 BMI result Body Mass Index 25.6 Tobacco/Smoking Status: Tobacco use Status Tobacco use date assessed 09/11/23 03/25/24 14:45 Patient Tobacco Use Status Never used Tobacco 03/25/24 14:45 e-Cigarette/Vaping Use Never Used 03/25/24 14:45 Thrive Assessment: Date of Thrive Assessment Date Thrive assessed 06/30/22 03/25/24 14:45 Const General: well developed; No acute distress Nutritional Appearance: well nourished Orientation/consciousness: patient oriented x3 [facility] Head: Yes normocephalic and Yes atraumatic Eyes General: appearance normal, both eyes and all related structures Pupils: Equal, round and reactive pupils present EOM: EOMs intact bilaterally Resp Effort & Inspection: normal respiratory effort Auscultation: clear to auscultation bilaterally Cardio Rate: regular rate Rhythm: regular rhythm Heart sounds: S1 normal heart sound present, S2 normal heart sound present, no gallops, no murmurs and no rubs Neuro General: patient oriented x3 and gait normal Cranial nerves: Yes Equal, round and reactive pupils present Extrem Other: Lower extremity swelling Psych Affect: normal affect Assessment and Plan Assessment & Plan (1) (HFpEF) heart failure with preserved ejection fraction: Comment: It seems to be under control at this time. She is being followed by Cardiology very regularly. Code(s): I50.30 - Unspecified diastolic (congestive) heart failure Plan: Lungs?are ?clear?and?patient?is?breathing?at?baseline?today?and?though?she?says?it?has?bee n?worse?lately. She?does?have?lower?extremity?edema She?is?watching?salt?and?sodium?in?diet She?now?has?a?scale?at?home? and?I?advised?her?to?watch?for?increases?in?weight?and?swelling?in?her?legs?as?w ell?as?worsening?of?her?breathing. Elevate?legs Currently?stable.??Follow-up?with?Cardiology?as?recommended (2) Chronic atrial fibrillation: Code(s): I48.20 - Chronic atrial fibrillation, unspecified Plan: Rate?controlled?on?diltiazem?and?she?is?taking?warfarin?as?prescribed Stable Follow-up?with?Cardiology (3) COPD (chronic obstructive pulmonary disease): Code(s): J44.9 - Chronic obstructive pulmonary disease, unspecified Plan: Lungs?are?clear. Taking?inhaled?medications?as?prescribed Stable Follow-up?with?pulmonology?as?recommended (4) Colostomy in place: Comment: Patient is using 20 bags with 20 barrier rings per month Code(s): Z93.3 - Colostomy status Plan: Now?currently?stable?though?she?did?have?a?resection?in?November?d ue?to?obstruction. Continue?ostomy?care Coding Level of Care Code Est Pt Level 4 (29792) Diagnoses (HFpEF) heart failure with preserved ejection fraction I50.30 Chronic atrial fibrillation I48.20 COPD (chronic obstructive pulmonary disease) J44.[address] Z93.3
[2024-03-25 14:56] VITALS: BP 120/58; PULSE 104; RESP 18; TEMP 36.6; O2SAT 97; BMI 25.6
== END 2024-03-25 16:04 | disposition home or self-care (01) ==
PROVIDERS: PCP Family Medicine; Visit Provider Family Medicine
DX: I50.30 Unspecified diastolic (congestive) heart failure (principal); I48.20 Chronic atrial fibrillation, unspecified; J44.9 Chronic obstructive pulmonary disease, unspecified; Z93.3 Colostomy status
CPT/HCPCS: 99214

== ENCOUNTER → 2024-03-27 12:03 | Outpatient (BNVA) | payer MEDICARE, SELFPAY | PROVIDERS: PCP Family Medicine; Visit Provider Internal Medicine ==

== ENCOUNTER → 2024-04-03 08:42 | Outpatient (BNVA) | payer MEDICARE, SELFPAY | PROVIDERS: PCP Family Medicine; Visit Provider Internal Medicine ==

== ENCOUNTER → 2024-04-10 10:55 | Outpatient (BNVA) | payer MEDICARE, SELFPAY | PROVIDERS: PCP Family Medicine; Visit Provider Internal Medicine ==

== ENCOUNTER → 2024-04-17 13:28 | Outpatient (BNVA) | payer MEDICARE, SELFPAY | PROVIDERS: PCP Family Medicine; Visit Provider Internal Medicine ==

== ENCOUNTER → 2024-04-24 10:27 | Outpatient (BNVA) | payer MEDICARE, SELFPAY | PROVIDERS: PCP Family Medicine; Visit Provider Internal Medicine | DX: N39.0 Urinary tract infection, site not specified (principal); N81.10 Cystocele, unspecified; R32 Unspecified urinary incontinence | CPT/HCPCS: 99202 ==

== ENCOUNTER 2024-04-24 14:30 | Outpatient (AMB) | payer MEDICARE, SELFPAY ==
--- NOTE | 2024-04-24 14:57 | MHC.OFFVIS ---
Intake Visit Reasons: recurrent UTI Intake Note: Patient is present for RECURRENT UTI Urology Medication:NONE Antibiotic Allergy:NONE Blood Thinner:WARFARIN, Fiberglass Bonding Machine Tender Required: No Allergies Seasonal Allergies Allergy (Severe, Verified 06/05/24 09:12) Itchy Eyes house dust Allergy (Intermediate, Verified 06/05/24 09:12) Sneezing aspirin Allergy (Unknown, Verified 06/05/24 09:12) Sick codeine [CODEINE] Adverse Reaction (Intermediate, Verified 06/05/24 09:12) NAUSEA & VOMITING ibuprofen [From ADVIL] Adverse Reaction (Intermediate, Verified 06/05/24 09:12) NAUSEA & VOMITING HPI Comments Details: Persistent UTI. After hospitalization Required 3 courses of antibiotics ?bladder dropped? states had a pessary in the past placed by parts specialist. Has urinary symptoms of slowing of urinary stream as well as urgency and leakage. She wears a pad Plan renal ultrasound follow-up office cystoscopy pessary fitting [facility] Medical History Hypoxemia Allergic rhinitis Pleural effusion Nocturnal hypoxemia Exercise hypoxemia Chronic atrial fibrillation Prosthetic valve dysfunction Nocturnal hypoxemia COPD (chronic obstructive pulmonary disease) COPD (chronic obstructive pulmonary disease) (HFpEF) heart failure with preserved ejection fraction GERD (gastroesophageal reflux disease) Hypothyroid Hyperlipidemia Asthma Surgical History Hx of abdominal surgery History of hernia surgery History of salpingo-oophorectomy History of carpal tunnel release History of hysterectomy History of colonoscopy History of mechanical aortic valve replacement (~2002) Family History Mother No problems noted. Father Myocardial infarction CAD (coronary artery disease) Brother Myocardial infarction Brother Myocardial infarction Social History Housing: Other Housing Other:: Mobile Home Alcohol intake: never Patient Tobacco Use Status: Never used Tobacco e-Cigarette/Vaping Use: Never Used Second Hand Smoke Exposure: No service: No Current occupational status: retired Current occupational exposures/hazards: No Cognitive needs: No Hearing needs: No Vision needs: No Review of Systems Const All systems reviewed & are unremarkable except as noted in HPI and below Reports no additional complaints Eyes Reports no additional complaints ENT Reports no additional complaints Card Reports no additional complaints Resp Reports no additional complaints GI Reports no additional complaints Reports as per HPI Musc Reports no additional complaints Skin/Breast Reports system reviewed and no additional complaints, except as documented Neuro Reports no additional complaints Psych Reports no additional complaints Endo Reports no additional complaints Marcelino/Lymph Reports no additional complaints Aller/Immun Reports no additional complaints Physical Exam Const General: cooperative, healthy appearing and no acute distress Orientation/consciousness: patient oriented x3 HEENT Head: Yes normal to inspection, Yes normocephalic and Yes atraumatic Eyes Conjunctivae: conjunctivae normal Neck Neck: Yes normal visual inspection and Yes trachea midline Chest Chest palpation & inspection: normal inspection of the chest Resp Effort & Inspection: normal respiratory effort Cardio Rate: regular rate GI Inspection: Yes normal to inspection Neuro General: patient oriented x3 Psych Appearance: grossly normal Results AMB INR Fingerstick AMB INR Fingerstick 3.2 Last Edit by Slime Carrillo RN on 04/24/24 12:50 Assessment & Plan Assessment & Plan (1) Recurrent UTI: Code(s): N39.0 - Urinary tract infection, site not specified Category: Medical (2) Female cystocele: Code(s): N81.10 - Cystocele, unspecified Category: Medical (3) Urinary incontinence: Code(s): R32 - Unspecified urinary incontinence Category: Medical Plan Plan renal ultrasound follow-up office cystoscopy pessary fitting Patient Instructions: The patient had an opportunity to ask questions regarding treatment plan. The patient expressed understanding and agreement with the above treatment plan. The patient is aware they should contact our office by phone for worsening of their current condition or the appearance of new symptoms. Compliance is encouraged with any medications and followup testing that is ordered. It is a privilege to be allowed the opportunity to participate in the urologic care of your patient. If you have any questions or concerns regarding treatment for the above conditions please do not hesitate to contact me. The office telephone contact is [phone]. This note is constructed in part using voice recognition software. While every effort has been made to ensure accuracy laborer hide house errors may have been included. Yours sincerely, Alex Franklin MD Coding Level of Care Code New Pt Level 4 (80314) Diagnoses Recurrent UTI N39.0 Female cystocele N81.10 Urinary incontinence R32
== END 2024-04-24 15:51 | disposition home or self-care (01) ==
PROVIDERS: PCP Family Medicine; Visit Provider Urology
DX: N39.0 Urinary tract infection, site not specified (principal); N81.10 Cystocele, unspecified; R32 Unspecified urinary incontinence
CPT/HCPCS: 99204

== ENCOUNTER → 2024-05-01 09:29 | Outpatient (BNVA) | payer MEDICARE, SELFPAY | PROVIDERS: PCP Family Medicine; Visit Provider Internal Medicine ==

== ENCOUNTER → 2024-05-08 10:25 | Outpatient (BNVA) | payer MEDICARE, SELFPAY | PROVIDERS: PCP Family Medicine; Visit Provider Internal Medicine ==

== ENCOUNTER → 2024-05-15 09:38 | Outpatient (BNVA) | payer MEDICARE, SELFPAY | PROVIDERS: PCP Family Medicine; Visit Provider Internal Medicine ==

== ENCOUNTER → 2024-05-22 14:54 | Outpatient (BNVA) | payer MEDICARE, SELFPAY | PROVIDERS: PCP Family Medicine; Visit Provider Internal Medicine ==

== ENCOUNTER → 2024-05-29 08:32 | Outpatient (BNVA) | payer MEDICARE, SELFPAY | PROVIDERS: PCP Family Medicine; Visit Provider Internal Medicine ==

== ENCOUNTER → 2024-06-05 08:54 | Outpatient (BNVA) | payer MEDICARE, SELFPAY | PROVIDERS: PCP Family Medicine; Visit Provider Internal Medicine ==

== ENCOUNTER 2024-06-10 14:32 | Outpatient (AMB) | payer MEDICARE, SELFPAY ==
--- NOTE | 2024-06-10 14:44 | A.OFFVIS_ITS ---
Intake Visit Reasons: cysto/pessary fitting Intake Note: Patient is present for Cystoscopy/PESSARY FIITING Urology Medication:NONE Antibiotic Allergy:NONE Blood Thinner:WARFARIN Lot:[id number] Exp:06/17/27 Front Office Agent Required: No Allergies Seasonal Allergies Allergy (Severe, Verified 06/19/24 09:32) Itchy Eyes house dust Allergy (Intermediate, Verified 06/19/24 09:32) Sneezing aspirin Allergy (Unknown, Verified 06/19/24 09:32) Sick codeine [CODEINE] Adverse Reaction (Intermediate, Verified 06/19/24 09:32) NAUSEA & VOMITING ibuprofen [From ADVIL] Adverse Reaction (Intermediate, Verified 06/19/24 09:32) NAUSEA & VOMITING HPI Comments Details: 06/10/24--here for cysto and pessary fitting. Cystoscopy findings: Mild bladder wall thickening, no suspicious bladder lesions visualized. Pessary fitting: Size 3, 4, and 5 mentor pessary with support placed vaginally, all three fell out in the office. Will order gelhorn pessaries to trial on FU. 04/24/24--Persistent UTI. After hospitalization Required 3 courses of antibiotics ?bladder dropped? states had a pessary in the past placed by director enterprise sales. Has urinary symptoms of slowing of urinary stream as well as urgency and leaka ge. She wears a pad Plan renal ultrasound follow-up office cystoscopy pessary fitting [facility] Medical History Hypoxemia Allergic rhinitis Pleural effusion Nocturnal hypoxemia Exercise hypoxemia Chronic atrial fibrillation Prosthetic valve dysfunction Nocturnal hypoxemia COPD (chronic obstructive pulmonary disease) COPD (chronic obstructive pulmonary disease) (HFpEF) heart failure with preserved ejection fraction GERD (gastroesophageal reflux disease) Hypothyroid Hyperlipidemia Asthma Surgical History Hx of abdominal surgery History of hernia surgery History of salpingo-oophorectomy History of carpal tunnel release History of hysterectomy History of colonoscopy History of mechanical aortic valve replacement (~2002) Family History Mother No problems noted. Father Myocardial infarction CAD (coronary artery disease) Brother Myocardial infarction Brother Myocardial infarction Social History Housing: Other Housing Other:: Mobile Home Alcohol intake: never Patient Tobacco Use Status: Never used Tobacco e-Cigarette/Vaping Use: Never Used Second Hand Smoke Exposure: No service: No Current occupational status: retired Current occupational exposures/hazards: No Cognitive needs: No Hearing needs: No Vision needs: No Review of Systems Const All systems reviewed & are unremarkable except as noted in HPI and below Reports no additional complaints Eyes Reports no additional complaints ENT Reports no additional complaints Card Reports no additional complaints Resp Reports no additional complaints GI Reports no additional complaints Reports as per HPI Musc Reports no additional complaints Skin/Breast Reports system reviewed and no additional complaints, except as documented Neuro Reports no additional complaints Psych Reports no additional complaints Endo Reports no additional complaints Marcelino/Lymph Reports no additional complaints Aller/Immun Reports no additional complaints Office Procedures Cystoscopy Consent Discussed risk and benefit or proposed procedure with the patient. Information consent for procedure given to the patient. Discussed technical aspects, risks, benefits and alternatives in full. Addressed all of the patient's questions and concerns regarding the procedure. The patient demonstrated knowledge and understanding. They wish to proceed with this procedure. Preparation The patient was prepped in the usual manner. A associate creative director was present and in the room. Genitalia was prepped with betadine solution in a sterile manner. Lidocaine Jelly 2% was placed into the urethra and 16Fr flexible Olympus cystoscope was inserted into the meatus after adequate lubrication. Procedure Time out per protocol performed. Bladder Inspection Bladder Inspection: The bladder was inspected in its entirety with utilization retroflexion displaying: Tumor(s): no suspicious bladder lesions visualized Trabeculation: Mild Mucosal Erthema: NA Orifices: normal shape and position Urethra: normal Cystoscopy findings: Mild bladder wall thickening, no suspicious bladder lesions visualized [id number]-[id number] DISPOSABLE SCOPE URO-G FLEXIBLE SCOPE Procedure code (CPT) selection complete Pessary Device Insert Details: Size 3, 4, and 5 mentor pessary with support placed vaginally, all three fell out in the office. Will order gelhorn pess[place] [id number] device insert Office Meds lidocaine HCl 2 % mucosal jelly in applicator Performing Provider: Alex Franklin MD Performing Location: [facility] – [place] [facility] Administered by: Kvng Wallis LPN on 06/10/24 15:14 Dose Route Admin Location Dispensed Lot Number Expiration Date [facility] [place] [facility] 10 mL intra-urethral 10 mL naproxen 500 mg tablet Performing Provider: Alex Franklin MD Performing Location: [facility] – [place] [facility] Documented (not given) by: Kvng Wallis LPN on 06/10/24 15:14 Reason Not Given: Patient Refused ciprofloxacin HCl 500 mg tablet Performing Provider: Alex Franklin MD Performing Location: [facility] – [place] [facility] Administered by: Kvng Wallis LPN on 06/10/24 15:14 Dose Route Admin Location Dispensed Lot Number Expiration Date [facility] [place] [facility] 500 mg PO 1 tab Results AMB Urinalysis, Automated UA Leukoctes 70 Cuco/uL Last Edit by KENNA Winslow on 06/10/24 15:08 UA Nitrite Negative Last Edit by KENNA Winslow on 06/10/24 15:08 UA Urobilinogen 0.2 mg/dL Last Edit by KENNA Winslow on 06/10/24 15:0 8 UA Protein 0 mg/dL Last Edit by KENNA Winslow on 06/10/24 15:08 UA pH 6.5 Last Edit by KENNA Winslow on 06/10/24 15:08 UA Blood 25 Elías/uL Last Edit by KENNA Winslow on 06/10/24 15:08 UA Specific [place] 1.015 Last Edit by KENNA Winslow on 06/10/24 15: 08 UA Ketone Negative Last Edit by KENNA Winslow on 06/10/24 15:08 UA Bilirubin 0 mg/dL Last Edit by KENNA Winslow on 06/10/24 15:08 UA Glucose 0 mg/dL Last Edit by KENNA Winslow on 06/10/24 15:08 Results Reviewed Results Reviewed: Laboratory Last Values Urine pH (Auto) 6.5 06/10/24 15:08 Specific [place] (Auto) 1.015 06/10/24 15:08 Urine Protein (Auto) 0 mg/dL 06/10/24 15:08 Glucose (UA)(Auto) 0 mg/dL 06/10/24 15:08 Urine Ketones (Auto) Negative 06/10/24 15:08 Urine Blood (Auto) 25 Elías/uL 06/10/24 15:08 Urine Nitrite (Auto) Negative 06/10/24 15:08 Urine Bilirubin (Auto) 0 mg/dL 06/10/24 15:08 Urine Urobilinogen (Auto) 0.2 mg/dL 06/10/24 15:08 Leukocyte Esterase (Auto) 70 Cuco/uL 06/10/24 15:08 Assessment & Plan Assessment & Plan (1) Recurrent UTI: Code(s): N39.0 - Urinary tract infection, site not specified Category: Medical (2) Female cystocele: Code(s): N81.10 - Cystocele, unspecified Category: Medical (3) Urinary incontinence: Code(s): R32 - Unspecified urinary incontinence Category: Medical Plan Renal/Bladder US, consider gelhorn pessary on follow up Orders: Orders AMB Cystoscopy 06/10/24 N39.0 - Urinary tract infection, site not specified, N81.10 - Cystocele, unspecified, R32 - Unspecified urinary incontinence AMB Urinalysis Automated 06/10/24 Z13.9 - Encounter for screening, unspecified AMB Intravaginal Support Device Insertion 06/10/24 N81.10 - Cystocele, unspecified Medications: Discontinued nitrofurantoin monohyd/m-cryst 100 mg must administer with a meal/food Discontinued Reason: No Longer Medically Relevant 100 mg PO BID 7 days 14 caps 0RF Patient Instructions: The patient had an opportunity to ask questions regarding treatment plan. The patient expressed understanding and agreement with the above treatment plan. The patient is aware they should contact our office by phone for worsening of their current condition or the appearance of new symptoms. Compliance is encouraged with any medications and followup testing that is ordered. It is a privilege to be allowed the opportunity to participate in the urologic care of your patient. If you have any questions or concerns regarding treatment for the above conditions please do not hesitate to contact me. The office telephone contact is [phone]. This note is constructed in part using voice recognition software. While every effort has been made to ensure accuracy spin table operator errors may have been included. Yours sincerely, Alex Franklin MD Coding Level of Care Code Procedure Only Diagnoses Recurrent UTI N39.0 Female cystocele N81.10 Urinary incontinence R32 CPT Codes Cystoscopy - CPT: 53437-Xuxlkgzoxc ([id number]) Pessary Device Insert - CPT: 15694-Znvxmzm device insert ([id number])
== END 2024-06-10 15:40 | disposition home or self-care (01) ==
LOC: HO.HUSH 14:32
PROVIDERS: PCP Family Medicine; Visit Provider Urology
DX: N39.0 Urinary tract infection, site not specified (principal); N81.10 Cystocele, unspecified; R32 Unspecified urinary incontinence; Z13.9 Encounter for screening, unspecified
CPT/HCPCS: 52000; 57160

== ENCOUNTER → 2024-06-10 14:32 | Outpatient (BNVA) | payer MEDICARE, SELFPAY | PROVIDERS: PCP Family Medicine; Visit Provider Urology | DX: N39.0 Urinary tract infection, site not specified (principal); N81.10 Cystocele, unspecified; R32 Unspecified urinary incontinence; Z46.6 Encounter for fitting and adjustment of urinary device; Z96.0 Presence of urogenital implants | CPT/HCPCS: 52000; 57160; 81003 ==

== ENCOUNTER → 2024-06-12 10:34 | Outpatient (BNVA) | payer MEDICARE, SELFPAY | PROVIDERS: PCP Family Medicine; Visit Provider Internal Medicine ==

== ENCOUNTER 2024-06-13 10:38 | Outpatient (REF) | payer MEDICARE, SELFPAY ==
[2024-06-13 18:13] LABS: Appearance Urine Turbid; Color Urine Yellow; Glucose Urine UA Negative (Negative); Leukocyte Esterase Urine Large (3+) (Negative); Nitrite Urine Positive (Negative); PH >= 9.0 (5.0-9.0); UMIC TRIGGER UA YES; Urine Blood Large (3+) (Negative); Urine Ketones Negative (Negative); Urine Protein 100 (2+) mg/dL (Neg-Trace)
[2024-06-13 18:40] LABS: Bacteria Urine 4+ (None Seen); RBC Urine 0-2 /HPF (0-2); Squamous Epithelial Cell Urine 0-2 /HPF (0-2); WBC Urine >50 /HPF (0-5)
== END 2024-06-13 10:39 | disposition home or self-care (01) ==
LOC: HO.WFDLDS 10:38
PROVIDERS: Visit Provider Urology
DX: N39.0 Urinary tract infection, site not specified (principal); R32 Unspecified urinary incontinence
CPT/HCPCS: 81001; 87086; 87088; 87186

== ENCOUNTER → 2024-06-20 10:55 | Outpatient (BNVA) | payer MEDICARE, SELFPAY | PROVIDERS: PCP Family Medicine; Visit Provider Internal Medicine ==

== ENCOUNTER → 2024-06-26 10:09 | Outpatient (BNVA) | payer MEDICARE, SELFPAY | PROVIDERS: PCP Family Medicine; Visit Provider Internal Medicine ==

== ENCOUNTER → 2024-07-03 09:26 | Outpatient (BNVA) | payer MEDICARE, SELFPAY | PROVIDERS: PCP Family Medicine; Visit Provider Internal Medicine ==

== ENCOUNTER → 2024-07-10 13:46 | Outpatient (BNVA) | payer MEDICARE, SELFPAY | PROVIDERS: PCP Family Medicine; Visit Provider Internal Medicine ==

== ENCOUNTER → 2024-07-22 11:54 | Outpatient (BNVA) | payer MEDICARE, SELFPAY | PROVIDERS: PCP Family Medicine; Visit Provider Internal Medicine ==

== ENCOUNTER 2024-07-29 15:32 | Outpatient (AMB) | payer MEDICARE, SELFPAY ==
--- NOTE | 2024-07-29 15:46 | MHC.PC.OV ---
Vital Signs 07/29/24 16:00 Height 5 ft 4.45 in Weight 142 lb 8 oz BMI 24.1 BP 116/60 Blood Pressure Location Rt brachial Position Sitting Respiration 16 Pulse 99 Pulse Source Pulse Oximeter Pulse Oximetry (%) 97 Oxygen Delivery Method Nasal Cannula Intake Visit Reasons: F/U chronic conditions Intake Note: f/u chronic conditions Allergies Seasonal Allergies Allergy (Severe, Verified 07/29/24 15:58) Itchy Eyes house dust Allergy (Intermediate, Verified 07/29/24 15:58) Sneezing aspirin Allergy (Unknown, Verified 07/29/24 15:58) Sick codeine [CODEINE] Adverse Reaction (Intermediate, Verified 07/29/24 15:58) NAUSEA & VOMITING ibuprofen [From ADVIL] Adverse Reaction (Intermediate, Verified 07/29/24 15:58) NAUSEA & VOMITING Tobacco use date assessed: 09/11/23 Dental Screening Dental Screen Date: 01/23/24 HPI F/U chronic conditions HPI Details 78 y/o female presents to f/u chronic conditions. Denies any swelling to her feet/ankles. Breathing has been okay. Has been following up with urology for a cystocele, recurrent UTI. Follows up with Cardiology for chronic AFib, CHF. [facility] Medical History Hypoxemia Allergic rhinitis Pleural effusion Nocturnal hypoxemia Exercise hypoxemia Chronic atrial fibrillation Prosthetic valve dysfunction Nocturnal hypoxemia COPD (chronic obstructive pulmonary disease) COPD (chronic obstructive pulmonary disease) (HFpEF) heart failure with preserved ejection fraction GERD (gastroesophageal reflux disease) Hypothyroid Hyperlipidemia Asthma Surgical History Hx of abdominal surgery History of hernia surgery History of salpingo-oophorectomy History of carpal tunnel release History of hysterectomy History of colonoscopy History of mechanical aortic valve replacement (~2002) Family History Mother No problems noted. Father Myocardial infarction CAD (coronary artery disease) Brother Myocardial infarction Brother Myocardial infarction Social History Housing: Other Housing Other:: Mobile Home Alcohol intake: never Patient Tobacco Use Status: Never used Tobacco e-Cigarette/Vaping Use: Never Used Second Hand Smoke Exposure: No service: No Current occupational status: retired Current occupational exposures/hazards: No Cognitive needs: No Hearing needs: No Vision needs: No Questionnaire PHQ-9 Over the last 2 weeks, how often have you been bothered by any of the following problems? 1. Little interest or pleasure in doing things: not at all 2. Feeling down, depressed, or hopeless: not at all Source: Developed by Drs. Gurmeet Acuña, Bao Swartz and colleagues, with an educational flaco from [employer]. Thrive Questionnaire Date Thrive assessed: 06/30/22 BECKY-7 AMB Questionnaire BECKY-7 Date BECKY - 7 assessed: 06/30/22 Source: Developed by Drs. Gurmeet Acuña, Antoinette Shafer, Bao Gutierrez and colleagues, with an educational flaco from [employer]. Physical exam (Primary Care) Vital Signs: Last Vital Signs Pulse 99 07/29/24 16:00 Resp 16 07/29/24 16:00 BP 116/60 07/29/24 16:00 Pulse Ox 97 07/29/24 16:00 Oxygen Delivery Method Nasal Cannula 07/29/24 16:00 BMI result Body Mass Index 24.1 Tobacco/Smoking Status: Tobacco use Status Tobacco use date assessed 09/11/23 07/29/24 15:48 Patient Tobacco Use Status Never used Tobacco 07/29/24 15:48 e-Cigarette/Vaping Use Never Used 07/29/24 15:48 Thrive Assessment: Date of Thrive Assessment Date Thrive assessed 06/30/22 07/29/24 15:48 Coding Level of Care Code Est Pt Level 4 (98912) Diagnoses COPD (chronic obstructive pulmonary disease) J44.9 (HFpEF) heart failure with preserved ejection fraction I50.30 Chronic atrial fibrillation I48.20 Urinary incontinence R32 Female cystocele N81.10 Assessment & Plan Assessment & Plan (1) COPD (chronic obstructive pulmonary disease): Code(s): J44.9 - Chronic obstructive pulmonary disease, unspecified Category: Medical Plan: Patient?is?breathing?easily?and?lungs?are?clear She?is?using?her?nasal?cannula?oxygen Continue?oxygen?and?inhaled?medications Follow-up?pulmonology?as?recommended (2) (HFpEF) heart failure with preserved ejection fraction: Comment: It seems to be under control at this time. She is being followed by Cardiology very regularly. Code(s): I50.30 - Unspecified diastolic (congestive) heart failure Category: Medical Plan: As?above,?patient?is?breathing?easily No?orthopnea?or?lower?extremity?edema Lungs?are?clear Continue?torsemide Follow-up?with?cardiology-has?appointment (3) Chronic atrial fibrillation: Code(s): I48.20 - Chronic atrial fibrillation, unspecified Category: Medical Plan: Stable She?has?a?follow-up?appointment?cardiology (4) Urinary incontinence: Code(s): R32 - Unspecified urinary incontinence Category: Medical Plan: Ongoing?urinary?incontinence?and?cystocele Patient?had?pessary?fitting?with?her?urologist?but?has?received?the?pessary?yet Follow-up?with?urology?as?recommended (5) Female cystocele: Code(s): N81.10 - Cystocele, unspecified Category: Medical Plan: As?above Orders: Orders Comprehensive [place]. Panel Fast Today Z00.00 - Encounter for general adult medical examination without abnormal findings Lipid Panel Today Z00.00 - Encounter for general adult medical examination without abnormal findings TSH reflex Free T4 Today Z00.00 - Encounter for general adult medical examination without abnormal findings UA and rflx microscopic Today Z00.00 - Encounter for general adult medical examination without abnormal findings Complete Blood Count Auto Diff Today Z00.00 - Encounter for general adult medical examination without abnormal findings
[2024-07-29 16:00] VITALS: BP 116/60; PULSE 99; RESP 16; O2SAT 97; BMI 24.1
== END 2024-07-29 16:45 | disposition home or self-care (01) ==
PROVIDERS: PCP Family Medicine; Visit Provider Family Medicine
DX: J44.9 Chronic obstructive pulmonary disease, unspecified (principal); I50.30 Unspecified diastolic (congestive) heart failure; I48.20 Chronic atrial fibrillation, unspecified; R32 Unspecified urinary incontinence; N81.10 Cystocele, unspecified

== ENCOUNTER 2024-07-30 11:15 | Outpatient (REF) | payer MEDICARE, SELFPAY ==
[2024-07-30 13:52] LABS: MANUAL DIFF FLAG NO
[2024-07-30 13:54] LABS: Basophils Absolute Auto 0.1 X10*3/uL (0.0-0.2); Basophils Percent Auto 0.9 % (0-2); Eosinophils Absolute Auto 0.2 X10*3/uL (0.0-0.4); Eosinophils Percent Auto 2.7 % (0-4); Hematocrit 30.4 % (37.0-47.0); Hemoglobin 9.3 g/dl (12.0-16.0); Imm Gran Abs Auto 0.03 X10*3/uL (0.00-0.03); Imm Gran Pct Auto 0.4 % (0.0-0.4); Lymphocytes Absolute Auto 0.6 X10*3/uL (1.2-4.9); Lymphocytes Percent Auto 7.9 % (20-40); Mean Corpuscular HGB Conc 30.6 g/dl (31.0-35.0); Mean Corpuscular Hemoglobin 25.5 pg (27.0-33.0); Mean Corpuscular Volume 83.5 fL (80.0-98.0); Mean Platelet Volume 8.9 fL (9.4-12.3); Monocytes Absolute Auto 0.4 X10*3/uL (0.1-1.2); Monocytes Percent Auto 5.7 % (2-11); Neutrophils Absolute Auto 5.8 x10*3/uL (2.0-8.3); Neutrophils Percent Auto 82.4 % (45-73); Platelet Count 369 X10*3/uL (160-400); Red Blood Count 3.64 X10*6/uL (4.20-5.50); Red Cell Distribution Width 17.9 % (11.0-16.0)
[2024-07-30 14:18] LABS: Alanine Aminotransferase 10 U/L (0-31); Albumin Level 3.6 g/dL (3.5-5.0); Alkaline Phosphatase 44 U/L (39-117); Anion Gap 9 (12-20); Aspartate Amino Transferase 28 U/L (5-31); Bilirubin Total 0.4 mg/dL (0.0-1.0); Blood Urea Nitrogen 11 mg/dL (9-16); Calcium 9.2 mg/dL (8.4-10.2); Carbon Dioxide 29 mmol/L (22-29); Chloride 105 mmol/L (96-108); Cholesterol 169 mg/dL (<200); Estimated Glomerular Filt Rate > 60; Glucose Fasting 95 mg/dL (60-99); HDL Cholesterol 55 mg/dL (>40); LDL Cholesterol Calculated 104 mg/dL (<100); Sodium 139 mmol/L (135-145); Total Protein 7.3 g/dL (6.5-8.0); Triglycerides 51 mg/dL (<150)
[2024-07-30 14:22] LABS: B Type Natriuretic Peptide 226 pg/mL (<100)
[2024-07-30 14:35] LABS: TSH reflex Free T4 1.07 uIU/mL (0.32-4.0)
== END 2024-07-30 11:16 | disposition home or self-care (01) ==
LOC: HO.WFDLDS 11:15
PROVIDERS: Referring Provider Internal Medicine Cardiovascular Disease; Visit Provider Family Medicine
DX: Z00.00 Encounter for general adult medical examination without abnormal findings (principal); I50.30 Unspecified diastolic (congestive) heart failure
CPT/HCPCS: 36415; 80053; 80061; 83880; 84443; 85025

== ENCOUNTER → 2024-07-31 08:20 | Outpatient (BNVA) | payer MEDICARE, SELFPAY | PROVIDERS: PCP Family Medicine; Visit Provider Internal Medicine ==

== ENCOUNTER 2024-07-31 11:45 | Outpatient (REF) | payer MEDICARE, SELFPAY ==
[2024-07-31 11:59] LABS: Appearance Urine Clear; Color Urine Yellow; Glucose Urine UA Negative (Negative); Leukocyte Esterase Urine Trace (Negative); Nitrite Urine Negative (Negative); PH 6.5 (5.0-9.0); Specific Gravity - Urine 1.015 (1.005-1.025); UMIC TRIGGER UA YES; Urine Blood Negative (Negative); Urine Ketones Negative (Negative); Urine Protein Negative (Neg-Trace)
[2024-07-31 12:12] LABS: Bacteria Urine Trace (None Seen); Hyaline Casts Urine 0-2 /LPF (0-2); RBC Urine 0-2 /HPF (0-2); WBC Urine 0-5 /HPF (0-5)
== END 2024-07-31 11:46 | disposition home or self-care (01) ==
LOC: HO.LNP 11:45
PROVIDERS: PCP Family Medicine; Visit Provider Family Medicine
DX: J44.9 Chronic obstructive pulmonary disease, unspecified (principal); I50.30 Unspecified diastolic (congestive) heart failure; I48.20 Chronic atrial fibrillation, unspecified; R32 Unspecified urinary incontinence; N81.10 Cystocele, unspecified; Z79.899 Other long term (current) drug therapy; Z00.00 Encounter for general adult medical examination without abnormal findings
CPT/HCPCS: 81001; 99212

== ENCOUNTER → 2024-08-06 10:07 | Outpatient (BNVA) | payer MEDICARE, SELFPAY | PROVIDERS: PCP Family Medicine; Visit Provider Internal Medicine ==

== ENCOUNTER 2024-08-08 14:13 | Outpatient (REF) | payer MEDICARE, SELFPAY ==
--- NOTE | ~2024-08-08 | US_ITS ---
EXAMINATION: US RETROPERITONEAL COMPLETE (RENAL) CLINICAL INFORMATION: Urinary tract infection, site not specified. COMPARISON: CT abdomen and pelvis 04/25/2013. Ultrasound abdomen 03/28/2013 and 11/30/2011. TECHNIQUE: Real-time imaging of the kidneys and bladder. Exam submitted for review 08/30/2024 8:51 AM [facility]. FINDINGS: RIGHT KIDNEY: 9.6 x 4.6 x 5.1 cm (SAG x AP x TRV). The kidney is normal in size, contour, and echogenicity. Renal cortical thickness is normal. No renal calculi or hydronephrosis. There are 2 simple cysts present, largest in the midpole measuring 0.8 cm. There are no masses or suspicious lesions. LEFT KIDNEY: 10.4 x 5.2 x 4.0 cm (SAG x AP x TRV). The kidney is normal in size, contour, and echogenicity. Renal cortical thickness is normal. No renal calculi or hydronephrosis. There are numerous cysts, the largest in the midpole measuring 2.0 x 2.4 x 2.0 cm. There are no masses or suspicious lesions. BLADDER: Well-distended and normal. Bilateral ureteral jets are not demonstrated. Prevoid bladder volume is 370 mL. Postvoid bladder volume is 310 mL. Per technologist note, patient unable to void. US/US retroperitoneal comp IMPRESSION: 1. Bilateral renal cysts, without suspicious lesion, calculus, or hydronephrosis. 2. Urinary bladder well distended and normal in appearance. Absence of ureteral jets is nonspecific. As per technologist note, the patient could not void. Electronically signed by: David Hammonds MD 08/30/2024 09:51 AM [facility]
--- NOTE | ~2024-08-08 | MM_ITS ---
EXAMINATION: MM SCREENING DIGITAL BREAST TOMOSYNTHESIS, BILATERAL CLINICAL INFORMATION: Screening. Asymptomatic. COMPARISON: Mammography: Comparison is made with available priors TECHNIQUE: Digital breast mammography with tomosynthesis is performed in both the craniocaudal and mediolateral oblique views along with computer-aided detection (CAD). FINDINGS: The breasts are heterogeneously dense, which may obscure small masses (ACR BI-RADS breast composition Category c). There are no significant masses, abnormal calcifications, or other abnormalities. MM/MM tomosynthesis screening BI IMPRESSION: No mammographic evidence of malignancy. ASSESSMENT: BI-RADS BI-RADS 1 - Negative RECOMMENDATION: Routine annual mammography screening. 1 year F/U This examination should not preclude the clinical evaluation of a suspicious palpable abnormality. This patient's information was entered into a reminder system with a target due date for their next mammogram. Electronically signed by: Elidia Herzog DO 08/20/2024 05:10 PM [facility]
== END 2024-08-08 14:14 | disposition home or self-care (01) ==
LOC: HO.US 14:13
PROVIDERS: PCP Family Medicine; Visit Provider Urology
DX: Z12.31 Encounter for screening mammogram for malignant neoplasm of breast (principal); N39.0 Urinary tract infection, site not specified; N28.89 Other specified disorders of kidney and ureter
CPT/HCPCS: 76770; 77063; 77067

== ENCOUNTER → 2024-08-08 15:45 | Outpatient (BNV) | payer MEDICARE, SELFPAY | PROVIDERS: PCP Family Medicine; Visit Provider Internal Medicine | DX: Z12.31 Encounter for screening mammogram for malignant neoplasm of breast (principal) | CPT/HCPCS: 77063; 77067 ==

== ENCOUNTER → 2024-08-15 12:05 | Outpatient (BNVA) | payer MEDICARE, SELFPAY | PROVIDERS: PCP Family Medicine; Visit Provider Internal Medicine ==

== ENCOUNTER → 2024-08-21 08:41 | Outpatient (BNVA) | payer MEDICARE, SELFPAY | PROVIDERS: PCP Family Medicine; Visit Provider Internal Medicine ==

== ENCOUNTER 2024-08-26 14:23 | Outpatient (AMB) | payer MEDICARE, SELFPAY ==
--- NOTE | 2024-08-25 17:22 | MHC.OFFVIS ---
Intake Visit Reasons: cysto/ pessary fitting Intake Note: Patient is present for pessary fitting Urology Med: None Antibiotic Allergy: None Blood Thinner: Warfarin Computer Installer Required: No Accompanied by: Self / Same As Patient Allergies Seasonal Allergies Allergy (Severe, Verified 08/26/24 14:26) Itchy Eyes house dust Allergy (Intermediate, Verified 08/26/24 14:26) Sneezing aspirin Allergy (Unknown, Verified 08/26/24 14:26) Sick codeine [CODEINE] Adverse Reaction (Intermediate, Verified 08/26/24 14:26) NAUSEA & VOMITING ibuprofen [From ADVIL] Adverse Reaction (Intermediate, Verified 08/26/24 14:26) NAUSEA & VOMITING Medication List - Last Reconciled 08/26/24 by Alex Franklin MD albuterol sulfate 2.5 mg (3 mL) inhalation Q4H albuterol sulfate 90 mcg/actuation (Ventolin HFA) 1 puff inhalation QID PRN 30 days alendronate 70 mg PO QWEEK 28 days atorvastatin 80 mg PO BEDTIME [calcium with d PO] diltiazem HCl CD (Cardizem CD) 180 mg PO BID 90 days fluticasone propion-salmeterol 500-50 mcg/dose 1 inh inhalation BID 30 days fluticasone propionate 50 mcg/actuation (Flonase Allergy Relief) 1 spray intranasal Q12H 30 days levothyroxine 137 mcg PO DAILY 90 days magnesium oxide 200 mg PO DAILY miscellaneous medical supply Xpro Ostomy Pouch, As directed, One month supply miscellaneous medical supply Ostomy Skin Barrier Ring, 1/16 inch thickness, As directed, 1 month Supply miscellaneous medical supply Ostomy SafenSimple No-Sting Skin Barrier Film, As directed, 30 day supply montelukast 10 mg PO DAILY [multivitamin PO] nystatin mL PO PRN omeprazole 20 mg PO DAILY 90 days ondansetron 4 mg PO Q8H PRN 5 days pantoprazole (Protonix) 40 mg PO DAILY 90 days potassium chloride ER 20 mEq PO TID sennosides (senna) 17.2 mg PO DAILY PRN tiotropium bromide (Spiriva with HandiHaler) 1 cap inhalation DAILY torsemide 20 mg PO DAILY 90 days warfarin 5 mg See Protocol PO DAILY 90 days HPI Comments Details: 08/26/24-- Here for pessary fitting, ring pessaries did not support prolapse Trial Gelhorn size 6 fell out with squatting and bending. Gelhorn size 7 placed and stayed when she squatted. Reviewed renal ultrasound 08/08/2024--bilateral simple cysts negative for renal stones. The patient was unable to urinate at time of procedure due to prolapsed bladder. 06/10/24--here for cysto and pessary fitting. Cystoscopy findings: Mild bladder wall thickening, no suspicious bladder lesions visualized. Pessary fitting: Size 3, 4, and 5 mentor pessary with support placed vaginally, all three fell out in the office. Will order gelhorn pessaries to trial on FU. 04/24/24--Persistent UTI. After hospitalization Required 3 courses of antibiotics ?bladder dropped? states had a pessary in the past placed by alcohol law enforcement agent. Has urinary symptoms of slowing of urinary stream as well as urgency and leakage. She wears a pad Plan renal ultrasound follow-up office cystoscopy pessary fitting [facility] Medical History Hypoxemia Allergic rhinitis Pleural effusion Nocturnal hypoxemia Exercise hypoxemia Chronic atrial fibrillation Prosthetic valve dysfunction Nocturnal hypoxemia COPD (chronic obstructive pulmonary disease) COPD (chronic obstructive pulmonary disease) (HFpEF) heart failure with preserved ejection fraction GERD (gastroesophageal reflux disease) Hypothyroid Hyperlipidemia Asthma Surgical History Hx of abdominal surgery History of hernia surgery History of salpingo-oophorectomy History of carpal tunnel release History of hysterectomy History of colonoscopy History of mechanical aortic valve replacement (~2002) Family History Mother No problems noted. Father Myocardial infarction CAD (coronary artery disease) Brother Myocardial infarction Brother Myocardial infarction Social History Housing: Other Housing Other:: Mobile Home Alcohol intake: never Patient Tobacco Use Status: Never used Tobacco e-Cigarette/Vaping Use: Never Used Second Hand Smoke Exposure: No service: No Current occupational status: retired Current occupational exposures/hazards: No Cognitive needs: No Hearing needs: No Vision needs: No Review of Systems Const All systems reviewed & are unremarkable except as noted in HPI and below Reports no additional complaints Eyes Reports no additional complaints ENT Reports no additional complaints Card Reports no additional complaints Resp Reports no additional complaints GI Reports no additional complaints Reports as per HPI Musc Reports no additional complaints Skin/Breast Reports system reviewed and no additional complaints, except as documented Neuro Reports no additional complaints Psych Reports no additional complaints Endo Reports no additional complaints Marcelino/Lymph Reports no additional complaints Aller/Immun Reports no additional complaints Office Procedures Pessary Device Insert Details: Gellhorn size 7 placed vaginally [id number] device insert Results Reviewed Results Reviewed: Renal ultrasound 08/08/2024--preliminary reading kidney bilateral simple cysts. Bladder- Patient unable to void at time of ultrasound official substation wireman pending Assessment & Plan Assessment & Plan (1) Female cystocele: Code(s): N81.10 - Cystocele, unspecified Category: Medical (2) Recurrent UTI: Code(s): N39.0 - Urinary tract infection, site not specified Category: Medical (3) Urinary incontinence: Code(s): R32 - Unspecified urinary incontinence Category: Medical Plan 4-5 weeks follow-up for pessary check Orders: Orders AMB Intravaginal Support Device Insertion Today N81.10 - Cystocele, unspecified AMB Urinalysis Automated Today Z13.9 - Encounter for screening, unspecified Patient Instructions: The patient had an opportunity to ask questions regarding treatment plan. The patient expressed understanding and agreement with the above treatment plan. The patient is aware they should contact our office by phone for worsening of their current condition or the appearance of new symptoms. Compliance is encouraged with any medications and followup testing that is ordered. It is a privilege to be allowed the opportunity to participate in the urologic care of your patient. If you have any questions or concerns regarding treatment for the above conditions please do not hesitate to contact me. The office telephone contact is [phone]. This note is constructed in part using voice recognition software. While every effort has been made to ensure accuracy substation wireman errors may have been included. Yours sincerely, Alex Franklin MD Coding Level of Care Code Est Pt Level 3 (56490) Diagnoses Female cystocele N81.10 Recurrent UTI N39.0 Urinary incontinence R32 CPT Codes Pessary Device Insert - CPT: 25366-Xihvngk device insert ([id number])
== END 2024-08-26 15:09 | disposition home or self-care (01) ==
PROVIDERS: PCP Family Medicine; Visit Provider Urology
DX: N81.10 Cystocele, unspecified (principal); N39.0 Urinary tract infection, site not specified; R32 Unspecified urinary incontinence; Z13.9 Encounter for screening, unspecified
CPT/HCPCS: 57160; 99213

== ENCOUNTER → 2024-08-26 14:23 | Outpatient (BNVA) | payer MEDICARE, SELFPAY | PROVIDERS: PCP Family Medicine; Visit Provider Urology | DX: N81.10 Cystocele, unspecified (principal); N39.0 Urinary tract infection, site not specified; R32 Unspecified urinary incontinence | CPT/HCPCS: 57160; 81003; 99212 ==

== ENCOUNTER → 2024-08-28 12:25 | Outpatient (BNVA) | payer MEDICARE, SELFPAY | PROVIDERS: PCP Family Medicine; Visit Provider Internal Medicine ==

== ENCOUNTER → 2024-09-04 10:46 | Outpatient (BNVA) | payer MEDICARE, SELFPAY | PROVIDERS: PCP Family Medicine; Visit Provider Internal Medicine | DX: I48.20 Chronic atrial fibrillation, unspecified (principal); Z79.01 Long term (current) use of anticoagulants; Z51.81 Encounter for therapeutic drug level monitoring | CPT/HCPCS: 99212 ==

== ENCOUNTER 2024-09-04 14:24 | Outpatient (AMB) | payer MEDICARE, SELFPAY ==
[2024-09-04 14:53] VITALS: BP 114/64; PULSE 95; O2SAT 98; BMI 24.1
--- NOTE | 2024-09-04 14:53 | MHC.OFFVIS ---
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: No Allergies Seasonal Allergies Allergy (Severe, Verified 09/04/24 15:09) Itchy Eyes house dust Allergy (Intermediate, Verified 09/04/24 15:09) Sneezing aspirin Allergy (Unknown, Verified 09/04/24 15:09) Sick codeine [CODEINE] Adverse Reaction (Intermediate, Verified 09/04/24 15:09) NAUSEA & VOMITING ibuprofen [From ADVIL] Adverse Reaction (Intermediate, Verified 09/04/24 15:09) NAUSEA & VOMITING Medication List - Last Reconciled 09/04/24 by Gretel Dorman MD albuterol sulfate 2.5 mg (3 mL) inhalation Q4H albuterol sulfate 90 mcg/actuation (Ventolin HFA) 1 puff inhalation QID PRN 30 days alendronate 70 mg PO QWEEK 28 days atorvastatin 80 mg PO BEDTIME [calcium with d PO] diltiazem HCl CD (Cardizem CD) 180 mg PO BID 90 days fluticasone propion-salmeterol 500-50 mcg/dose 1 inh inhalation BID 30 days fluticasone propionate 50 mcg/actuation (Flonase Allergy Relief) 1 spray intranasal Q12H PRN levothyroxine 137 mcg PO DAILY 90 days magnesium oxide 200 mg PO DAILY miscellaneous medical supply Xpro Ostomy Pouch, As directed, One month supply miscellaneous medical supply Ostomy Skin Barrier Ring, 1/16 inch thickness, As directed, 1 month Supply miscellaneous medical supply Ostomy SafenSimple No-Sting Skin Barrier Film, As directed, 30 day supply montelukast 10 mg PO DAILY [multivitamin PO] nystatin mL PO PRN omeprazole 20 mg PO DAILY 90 days ondansetron 4 mg PO Q8H PRN 5 days pantoprazole (Protonix) 40 mg PO DAILY 90 days potassium chloride ER 20 mEq PO TID sennosides (senna) 17.2 mg PO DAILY PRN tiotropium bromide (Spiriva with HandiHaler) 1 cap inhalation DAILY torsemide 20 mg PO DAILY 90 days warfarin 5 mg See Protocol PO DAILY 90 days Do you need a note to return to daycare/school/sports/work: No HPI HPI COPD: Details: DANIELLE IS 78 YEARS OLD VERY PLEASANT FEMALE WHO COMES FOR HER ROUTINE 6 MONTHS FOLLOW-UP FOR COPD. SHE HAS REMAINED VERY STABLE WITHOUT ANY ACUTE INFECTION OR EXACERBATION IN THE LAST 6 MONTHS. SHE USES O2 2 L/MINUTE CONTINUOUSLY 24 HOURS A DAY. SHE CONTINUES TO USE HER MAINTENANCE REGIMEN WHICH INCLUDES THE ADVAIR 500-50 TWICE A DAY, SPIRIVA HANDIHALER ONCE A DAY, MONTELUKAST 10 MG DAY AND ALBUTEROL 2 PUFFS Q 6 HOURS P.R.N.. SHE HARDLY NEEDS TO USE ALBUTEROL. UP UNTIL LAST YEAR SHE HAS BEEN ON ALLERGY SHOTS FOR QUITE A FEW YEARS. 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 [facility] Medical History Hypoxemia Allergic rhinitis Pleural effusion Nocturnal hypoxemia Exercise hypoxemia Chronic atrial fibrillation Prosthetic valve dysfunction Nocturnal hypoxemia COPD (chronic obstructive pulmonary disease) COPD (chronic obstructive pulmonary disease) (HFpEF) heart failure with preserved ejection fraction GERD (gastroesophageal reflux disease) Hypothyroid Hyperlipidemia Asthma Surgical History Hx of abdominal surgery History of hernia surgery History of salpingo-oophorectomy History of carpal tunnel release History of hysterectomy History of colonoscopy History of mechanical aortic valve replacement (~2002) Family History Mother No problems noted. Father Myocardial infarction CAD (coronary artery disease) Brother Myocardial infarction Brother Myocardial infarction Social History Housing: Other Housing Other:: Mobile Home Alcohol intake: never Patient Tobacco Use Status: Never used Tobacco e-Cigarette/Vaping Use: Never Used Second Hand Smoke Exposure: No service: No Current occupational status: retired Current occupational exposures/hazards: No Cognitive needs: No Hearing needs: No Vision needs: No Review of Systems Const All systems reviewed & are unremarkable except as noted in HPI and below Eyes Reports no additional complaints ENT Reports no additional complaints Card Denies chest pain, Reports irregular heart rhythm, Reports leg edema (Mild) and Reports dyspnea on exertion Resp Reports as per HPI, Denies cough, Reports dyspnea on exertion and Denies wheezing GI Reports no additional complaints Reports no additional complaints Skin/Breast Reports dry skin Neuro Reports no additional complaints Psych Reports no additional complaints Aller/Immun Denies wheezing Physical Exam Vital Signs: Last Vital Signs Pulse 95 09/04/24 14:53 BP 114/64 09/04/24 14:53 Pulse Ox 98 09/04/24 14:53 Oxygen Delivery Method Room Air 09/04/24 14:53 BMI result Body Mass Index 24.1 Const General: comfortable (But appears very weak), no acute distress, alert and awake Orientation/consciousness: patient oriented x3 HEENT Head: Yes normal to inspection General nose exam: No nasal polyps present and No nasal discharge present Face and sinus: Yes sinuses nontender Mouth: oropharynx normal Throat: Yes posterior oropharynx normal Eyes General: appearance normal, both eyes and all related structures Neck Neck: Yes normal visual inspection, Yes no lymphadenopathy, Yes trachea midline and Yes no JVD Thyroid: Thyroid normal Chest Chest palpation & inspection: normal inspection of the chest (Midline scar from previous open heart surgery for aortic valve replacement), normal palpation of entire chest wall and no tenderness Resp Other: Percussion note is resonant, breath sounds are very distant on both sides with prolonged expiratory phase. Lungs are basically clear and no wheezes or crepitations today Cardio Palpation: normal PMI Rate: regular rate Rhythm: regular rhythm Heart sounds: Clicking heart sound present (Metallic heart sounds), no gallops and no murmurs GI Palpation (GI): Soft to palpation, nontender, No hepatosplenomegaly present, no masses and Other GI palpation findings present (Colostomy bag in the left upper quadrant,a few areas of ventral herniation) Auscultation: normal bowel sounds Back/Spine/Pelvis Thoracic/Lumbar Spine: thoracic and lumbar spine normal to inspection and thoraco-lumbar ROM limited Skin General skin exam: no rashes or lesions noted and dry skin Neuro General: patient oriented x3 and no focal motor deficits Cranial nerves: Yes CN's II-XII intact bilaterally Extrem General: Yes normal to inspection, Yes no calf tenderness and Yes edema (1+ edema around the ankles) Psych Appearance: grossly normal and well kempt Speech and movement: Normal speech and movement present Results AMB INR Fingerstick AMB INR Fingerstick 2.4 Last Edit by Charley Carbajal RN on 09/04/24 10:48 Assessment & Plan Assessment & Plan (1) COPD (chronic obstructive pulmonary disease): Comment: PATIENT HAS CHRONIC MODERATELY SEVERE OBSTRUCTIVE AIRWAY DISORDER, WHICH IS REMAINING WELL CONTROLLED WITH HER CURRENT MEDICAL REGIMEN. SHE HAS HAD NO ACUTE EXACERBATION Code(s): J44.9 - Chronic obstructive pulmonary disease, unspecified Category: Medical Plan: CONTINUE ADVAIR( FLUTICASONE-SALMETEROL ) 500-50 1 INHALATION B.I.D. ALSO CONTINUE SPIRIVA HANDIHALER 1 INHALATION DAILY. ALBUTEROL HFA 2 PUFFS Q 6 HOURS ONLY P.R.N.. (2) Hypoxemia: Comment: PATIENT HAS NOCTURNAL HYPOXEMIA, WELL EXERCISE INDUCED HYPOXEMIA. SHE IS USING O2 2 L/MINUTE AT NIGHT AND ALSO WITH PORTABLE UNIT DURING THE DAYTIME . SHE IS DOING VERY WELL. Code(s): R09.02 - Hypoxemia Category: Medical Plan: ADVISED TO CONTINUE USING O2 2 L/MINUTE AT NIGHT AND WITH THE PORTABLE UNIT P.R.N. DURING THE DAYTIME (3) Allergic rhinitis: Comment: Patient has ongoing chronic allergic rhinitis, which is well controlled with current medical regimen. THIS PATIENT WAS ON ALLERGY SHOTS FOR MANY YEARS BUT THEY WERE STOPPED SINCE LAST YEAR AND SHE HAS HAD NO INCREASE IN THE SYMPTOMS. Code(s): J30.9 - Allergic rhinitis, unspecified Category: Medical Plan: CONTINUE MONTELUKAST 10 MG DAILY FLONASE -50 1 SPRAY EACH NOSTRIL Q.12 HOURS P.R.N. FOR ANY INCREASED SYMPTOMS Medications: Changed From fluticasone propionate 50 mcg/actuation (Flonase Allergy Relief) administer into each nostril 1 spray intranasal Q12H 30 days 16 grams 1RF To fluticasone propionate 50 mcg/actuation (Flonase Allergy Relief) administer into each nostril 1 spray intranasal Q12H PRN Coding Level of Care Code Est Pt Level 3 (83013) Diagnoses COPD (chronic obstructive pulmonary disease) J44.9 Hypoxemia R09.02 Allergic rhinitis J30.9
== END 2024-09-04 15:56 | disposition home or self-care (01) ==
PROVIDERS: PCP Family Medicine; Visit Provider Internal Medicine
DX: J44.9 Chronic obstructive pulmonary disease, unspecified (principal); R09.02 Hypoxemia; J30.9 Allergic rhinitis, unspecified
CPT/HCPCS: 99213

== ENCOUNTER → 2024-09-18 11:24 | Outpatient (BNVA) | payer MEDICARE, SELFPAY | PROVIDERS: PCP Family Medicine; Visit Provider Internal Medicine ==

== ENCOUNTER 2024-09-18 14:31 | Outpatient (REF) | payer MEDICARE, SELFPAY ==
[2024-09-18 19:01] LABS: Appearance Urine Cloudy; Color Urine Yellow; Glucose Urine UA Negative (Negative); Leukocyte Esterase Urine Large (3+) (Negative); Nitrite Urine Negative (Negative); UMIC TRIGGER UA YES; Urine Blood Moderate (2+) (Negative); Urine Ketones Negative (Negative); Urine Protein 30 (1+) mg/dL (Neg-Trace)
[2024-09-18 19:30] LABS: Bacteria Urine 3+ (None Seen); WBC Urine 21-50 /HPF (0-5)
== END 2024-09-18 14:32 | disposition home or self-care (01) ==
LOC: HO.WFDLDS 14:31
PROVIDERS: Visit Provider Urology
DX: N39.0 Urinary tract infection, site not specified (principal)
CPT/HCPCS: 81001; 87086

== ENCOUNTER 2024-09-24 15:17 | Outpatient (AMB) | payer MEDICARE, SELFPAY ==
[2024-09-24 15:23] VITALS: BP 118/68; PULSE 97; BMI 24.6
--- NOTE | 2024-09-24 15:23 | MHC.OFFVIS ---
Vital Signs 09/24/24 15:23 Height 5 ft 4.45 in Weight 145 lb 8.081 oz BMI 24.6 BP 118/68 Blood Pressure Location Lt brachial Position Sitting Pulse 97 Intake Visit Reasons: 6 mth fu Intake Note: 6 month follow-up feeling good Chair Springer Required: No Allergies Seasonal Allergies Allergy (Severe, Verified 09/24/24 17:00) Itchy Eyes house dust Allergy (Intermediate, Verified 09/24/24 17:00) Sneezing aspirin Allergy (Unknown, Verified 09/24/24 17:00) Sick codeine [CODEINE] Adverse Reaction (Intermediate, Verified 09/24/24 17:00) NAUSEA & VOMITING ibuprofen [From ADVIL] Adverse Reaction (Intermediate, Verified 09/24/24 17:00) NAUSEA & VOMITING Medication List - Last Reconciled 09/24/24 by Darius Spicer MD albuterol sulfate 2.5 mg (3 mL) inhalation Q4H albuterol sulfate 90 mcg/actuation (Ventolin HFA) 1 puff inhalation QID PRN 30 days alendronate 70 mg PO QWEEK 28 days atorvastatin 80 mg PO BEDTIME [calcium with d PO] diltiazem HCl CD (Cardizem CD) 180 mg PO BID 90 days fluticasone propion-salmeterol 500-50 mcg/dose 1 inh inhalation BID 30 days fluticasone propionate 50 mcg/actuation (Flonase Allergy Relief) 1 spray intranasal Q12H PRN levothyroxine 137 mcg PO DAILY 90 days magnesium oxide 200 mg PO DAILY miscellaneous medical supply Xpro Ostomy Pouch, As directed, One month supply miscellaneous medical supply Ostomy Skin Barrier Ring, 1/16 inch thickness, As directed, 1 month Supply miscellaneous medical supply Ostomy SafenSimple No-Sting Skin Barrier Film, As directed, 30 day supply montelukast 10 mg PO DAILY [multivitamin PO] nystatin mL PO PRN omeprazole 20 mg PO DAILY 90 days pantoprazole (Protonix) 40 mg PO DAILY 90 days potassium chloride ER 20 mEq PO TID tiotropium bromide (Spiriva with HandiHaler) 1 cap inhalation DAILY torsemide 20 mg PO DAILY 90 days warfarin 5 mg See Protocol PO DAILY 90 days HPI Comments Details: Danielle comes for follow-up after 6 months. She has been overall doing well and said over the last few months was feeling excellent with a weight around 142 lb. Over the last week she had increase intake of high salt foods and she says she has gained about 3 lb and has notice some leg edema. No abdominal distention although at nighttime she notice when she goes to the bathroom she was more fatigued and short of breath which is new over the last week or so. She has not increased her torsemide therapy. She denies any significant other overt bleeding issues. Denies any palpitations, lightheadedness, syncope. Takes all her medications. [facility] Medical History Hypoxemia Allergic rhinitis Pleural effusion Nocturnal hypoxemia Exercise hypoxemia Chronic atrial fibrillation Prosthetic valve dysfunction Nocturnal hypoxemia COPD (chronic obstructive pulmonary disease) COPD (chronic obstructive pulmonary disease) (HFpEF) heart failure with preserved ejection fraction GERD (gastroesophageal reflux disease) Hypothyroid Hyperlipidemia Asthma Surgical History Hx of abdominal surgery History of hernia surgery History of salpingo-oophorectomy History of carpal tunnel release History of hysterectomy History of colonoscopy History of mechanical aortic valve replacement (~2002) Family History Mother No problems noted. Father Myocardial infarction CAD (coronary artery disease) Brother Myocardial infarction Brother Myocardial infarction Social History Housing: Other Housing Other:: Mobile Home Alcohol intake: never Patient Tobacco Use Status: Never used Tobacco e-Cigarette/Vaping Use: Never Used Second Hand Smoke Exposure: No service: No Current occupational status: retired Current occupational exposures/hazards: No Cognitive needs: No Hearing needs: No Vision needs: No Review of Systems Const Denies chills, Denies fatigue, Denies fever(s), Denies frequent falls, Denies weakness, Denies weight gain and Denies weight loss ENT Denies dizziness Card Denies chest pain, Denies leg edema, Denies lightheadedness, Denies palpitations, Denies dyspnea, Denies dyspnea on exertion, Denies orthopnea and Denies other (loss of consciousness) Resp Denies cough, Denies dyspnea and Denies dyspnea on exertion GI Denies hematochezia and Denies change in stool character Musc Denies abnormal gait, Denies muscle weakness, Denies numbness, Denies radiating pain into limb and Denies tingling Neuro Denies abnormal gait, Denies dizziness, Denies frequent falls, Denies numbness, Denies tingling and Denies weakness Endo Denies fatigue and Denies palpitations Physical Exam Vital Signs: Last Vital Signs Pulse 97 09/24/24 15:23 BP 118/68 09/24/24 15:23 BMI result Body Mass Index 24.6 Const General: comfortable (But appears very weak), no acute distress, alert and awake Orientation/consciousness: patient oriented x3 HEENT Head: Yes normal to inspection General nose exam: No nasal polyps present and No nasal discharge present Face and sinus: Yes sinuses nontender Mouth: oropharynx normal Throat: Yes posterior oropharynx normal Eyes General: appearance normal, both eyes and all related structures Neck Neck: Yes normal visual inspection, Yes no lymphadenopathy, Yes trachea midline and Yes no JVD (Positive AJR) Chest Chest palpation & inspection: normal inspection of the chest (Midline scar from previous open heart surgery for aortic valve replacement), normal palpation of entire chest wall and no tenderness Resp Other: Percussion note is resonant, breath sounds are very distant on both sides with prolonged expiratory phase. No wheezes rhonchi or crepitations are heard. Auscultation: diminished lung sounds bilateral in the lower lung triana Cardio Jugular venous distension: other (Mild JVD) Palpation: normal PMI Rhythm: abnormal rhythm irregularly irregular Heart sounds: S1 normal heart sound present, Clicking heart sound present (Metallic heart sounds), no gallops and no murmurs GI Palpation (GI): Soft to palpation, nontender, No hepatosplenomegaly present, no masses and Other GI palpation findings present (Colostomy bag in the left upper quadrant,a few areas of ventral herniation) Auscultation: normal bowel sounds Back/Spine/Pelvis Thoracic/Lumbar Spine: thoracic and lumbar spine normal to inspection and thoraco-lumbar ROM limited Skin General skin exam: no rashes or lesions noted and dry skin Neuro General: patient oriented x3 and no focal motor deficits Cranial nerves: Yes CN's II-XII intact bilaterally Extrem General: Yes normal to inspection, Yes no calf tenderness, No clubbing, No cyanosis and Yes edema (1-2 + up to the knee) Psych Appearance: grossly normal and well kempt Speech and movement: Normal speech and movement present Results AMB INR Fingerstick AMB INR Fingerstick 3.4 Last Edit by Africa Bonner RN on 09/24/24 17:02 home meter Assessment & Plan Assessment & Plan (1) (HFpEF) heart failure with preserved ejection fraction: Comment: It seems to be under control at this time. She is being followed by Cardiology very regularly. Code(s): I50.30 - Unspecified diastolic (congestive) heart failure Category: Medical Plan: Heart failure with preserved ejection fraction with recent dietary indiscretion with increased weight of about 3 lb with leg edema with increased symptoms. Suggested to increase her torsemide by 10 mg on her baseline 20 mg torsemide for the next few days till she had she was her dry weight about 142 lb. Advised to call me with worsening symptoms. Can consider adding Jardiance 10 mg to regimen. Importance of diastolic discretion and additional diuretics as need be was discussed. She understands agrees. Daily weight monitoring was discussed. Continue rate control with Cardizem therapy as prescribed. Continue chronic oxygen therapy and management of COPD aggressively. (2) Chronic atrial fibrillation: Code(s): I48.20 - Chronic atrial fibrillation, unspecified Category: Medical Plan: Chronic rate control atrial fibrillation. Continue rate control strategy. Currently on Coumadin therapy given her prosthetic valve with mean INR to be between 2.5 and 3.5. Continue to follow with [facility]madin Clinic. (3) Presence of prosthetic heart valve: Comment: mechanical aortic valve. INR goal is 2.5-3.5 Code(s): Z95.2 - Presence of prosthetic heart valve Category: Medical Plan: Patient with prosthetic valve dysfunction with mean gradient of 17 mm Hg related to patient prosthesis mismatch. No change significantly. Continue to monitor by echocardiogram on annual basis. SBE prophylaxis as per [facility] guidelines. Continue warfarin therapy. Will follow up in the clinic in 6 months time, sooner p.r.n.. Thank you for allowing me to partake in his care Coding Level of Care Code Est Pt Level 4 (58464) Complex EM visit Add On G2211 Diagnoses (HFpEF) heart failure with preserved ejection fraction I50.30 Chronic atrial fibrillation I48.20 Presence of prosthetic heart valve Z95.2
== END 2024-09-24 15:51 | disposition home or self-care (01) ==
PROVIDERS: PCP Family Medicine; Visit Provider Internal Medicine Cardiovascular Disease
DX: I50.30 Unspecified diastolic (congestive) heart failure (principal); I48.20 Chronic atrial fibrillation, unspecified; Z95.2 Presence of prosthetic heart valve
CPT/HCPCS: 99214; G2211

== ENCOUNTER → 2024-09-24 15:17 | Outpatient (BNVA) | payer MEDICARE, SELFPAY | PROVIDERS: PCP Family Medicine; Visit Provider Internal Medicine Cardiovascular Disease | DX: I50.30 Unspecified diastolic (congestive) heart failure (principal); I48.20 Chronic atrial fibrillation, unspecified; Z95.2 Presence of prosthetic heart valve | CPT/HCPCS: 99212 ==

== ENCOUNTER → 2024-09-25 09:47 | Outpatient (BNVA) | payer MEDICARE, SELFPAY | PROVIDERS: PCP Family Medicine; Visit Provider Internal Medicine ==

== ENCOUNTER 2024-09-27 15:17 | Outpatient (AMB) | payer MEDICARE, SELFPAY ==
--- NOTE | 2024-09-27 12:58 | A.OFFVIS_ITS ---
Intake Visit Reasons: 4w/pessary check Intake Note: Patient is present for Pessary Check Urology Med: None Antibiotic Allergy: None Blood Thinner: Warfarin PVR:0ML Allergies Seasonal Allergies Allergy (Severe, Verified 10/02/24 10:41) Itchy Eyes house dust Allergy (Intermediate, Verified 10/02/24 10:41) Sneezing aspirin Allergy (Unknown, Verified 10/02/24 10:41) Sick codeine [CODEINE] Adverse Reaction (Intermediate, Verified 10/02/24 10:41) NAUSEA & VOMITING ibuprofen [From ADVIL] Adverse Reaction (Intermediate, Verified 10/02/24 10:41) NAUSEA & VOMITING Medication List - Last Reconciled 09/27/24 by Alex Franklin MD albuterol sulfate 2.5 mg (3 mL) inhalation Q4H albuterol sulfate 90 mcg/actuation (Ventolin HFA) 1 puff inhalation QID PRN 30 days alendronate 70 mg PO QWEEK 28 days atorvastatin 80 mg PO BEDTIME [calcium with d PO] cefuroxime axetil 500 mg PO BID 7 days diltiazem HCl CD (Cardizem CD) 180 mg PO BID 90 days fluticasone propion-salmeterol 500-50 mcg/dose 1 inh inhalation BID 30 days fluticasone propionate 50 mcg/actuation (Flonase Allergy Relief) 1 spray intranasal Q12H PRN levothyroxine 137 mcg PO DAILY 90 days magnesium oxide 200 mg PO DAILY miscellaneous medical supply Xpro Ostomy Pouch, As directed, One month supply miscellaneous medical supply Ostomy Skin Barrier Ring, 1/16 inch thickness, As directed, 1 month Supply miscellaneous medical supply Ostomy SafenSimple No-Sting Skin Barrier Film, As directed, 30 day supply montelukast 10 mg PO DAILY [multivitamin PO] nystatin mL PO PRN omeprazole 20 mg PO DAILY 90 days pantoprazole (Protonix) 40 mg PO DAILY 90 days potassium chloride ER 20 mEq PO TID tiotropium bromide (Spiriva with HandiHaler) 1 cap inhalation DAILY torsemide 20 mg PO DAILY 90 days warfarin 5 mg See Protocol PO DAILY 90 days HPI Comments Details: 09/27/24--Pessary staying in place, had UTI symptoms left urine at lab. Ceftin 500 mg bid for 7 days, FU in 2 months pessary maintenance. 1/13/25-- Here for pessary fitting, ring pessaries did not support prolapse Trial Gelhorn size 6 fell out with squatting and bending. Gelhorn size 7 placed and stayed when she squatted. Reviewed renal ultrasound 08/08/2024--bilateral simple cysts negative for renal stones. The patient was unable to urinate at time of procedure due to prolapsed bladder. 06/10/24--here for cysto and pessary fitting. Cystoscopy findings: Mild bladder wall thickening, no suspicious bladder lesions visualized. Pessary fitting: Size 3, 4, and 5 mentor pessary with support placed vaginally, all three fell out in the office. Will order gelhorn pessaries to trial on FU. 04/24/24--Persistent UTI. After hospitalization Required 3 courses of antibiotics ?bladder dropped? states had a pessary in the past placed by addictions counselor assistant. Has urinary symptoms of slowing of urinary stream as well as urgency and l eakage. She wears a pad Plan renal ultrasound follow-up office cystoscopy pessary fitting [facility] Medical History Hypoxemia Allergic rhinitis Pleural effusion Nocturnal hypoxemia Exercise hypoxemia Chronic atrial fibrillation Prosthetic valve dysfunction Nocturnal hypoxemia COPD (chronic obstructive pulmonary disease) COPD (chronic obstructive pulmonary disease) (HFpEF) heart failure with preserved ejection fraction GERD (gastroesophageal reflux disease) Hypothyroid Hyperlipidemia Asthma Surgical History Hx of abdominal surgery History of hernia surgery History of salpingo-oophorectomy History of carpal tunnel release History of hysterectomy History of colonoscopy History of mechanical aortic valve replacement (~2002) Family History Mother No problems noted. Father Myocardial infarction CAD (coronary artery disease) Brother Myocardial infarction Brother Myocardial infarction Social History Housing: Other Housing Other:: Mobile Home Alcohol intake: never Patient Tobacco Use Status: Never used Tobacco e-Cigarette/Vaping Use: Never Used Second Hand Smoke Exposure: No service: No Current occupational status: retired Current occupational exposures/hazards: No Cognitive needs: No Hearing needs: No Vision needs: No Review of Systems Const All systems reviewed & are unremarkable except as noted in HPI and below Reports no additional complaints Eyes Reports no additional complaints ENT Reports no additional complaints Card Reports no additional complaints Resp Reports no additional complaints GI Reports no additional complaints Reports as per HPI Musc Reports no additional complaints Skin/Breast Reports system reviewed and no additional complaints, except as documented Neuro Reports no additional complaints Psych Reports no additional complaints Endo Reports no additional complaints Marcelino/Lymph Reports no additional complaints Aller/Immun Reports no additional complaints Office Procedures Post Void Residual Post Residual Void Post Void Residual (PVR): [id number] Void Residual by ultrasound Assessment & Plan Assessment & Plan (1) Female cystocele: Code(s): N81.10 - Cystocele, unspecified Category: Medical (2) Recurrent UTI: Code(s): N39.0 - Urinary tract infection, site not specified Category: Medical (3) Urinary incontinence: Code(s): R32 - Unspecified urinary incontinence Category: Medical Plan Ceftin 500 mg bid for 7 days, FU in 2 months pessary maintenance. Orders: Orders AMB Post Void Residual by ultrasound 09/27/24 R32 - Unspecified urinary incontinence Medications: New cefuroxime axetil 500 mg PO BID 7 days 14 tabs 0RF Patient Instructions: The patient had an opportunity to ask questions regarding treatment plan. The patient expressed understanding and agreement with the above treatment plan. The patient is aware they should contact our office by phone for worsening of their current condition or the appearance of new symptoms. Compliance is encouraged with any medications and followup testing that is ordered. It is a privilege to be allowed the opportunity to participate in the urologic care of your patient. If you have any questions or concerns regarding treatment for the above conditions please do not hesitate to contact me. The office telephone contact is [phone]. This note is constructed in part using voice recognition software. While every effort has been made to ensure accuracy elementary school science teacher errors may have been included. Yours sincerely, Alex Franklin MD Coding Level of Care Code Est Pt Level 4 (54262) Diagnoses Female cystocele N81.10 Recurrent UTI N39.0 Urinary incontinence R32 CPT Codes Post Residual Void - PVR CPT Code: 67414-[place] Void Residual by ultrasound ([id number])
== END 2024-09-27 15:48 | disposition home or self-care (01) ==
PROVIDERS: PCP Family Medicine; Visit Provider Urology
DX: N81.10 Cystocele, unspecified (principal); N39.0 Urinary tract infection, site not specified; R32 Unspecified urinary incontinence
CPT/HCPCS: 99214

== ENCOUNTER → 2024-09-27 15:17 | Outpatient (BNVA) | payer MEDICARE, SELFPAY | PROVIDERS: PCP Family Medicine; Visit Provider Urology | DX: N81.10 Cystocele, unspecified (principal); N39.0 Urinary tract infection, site not specified; R32 Unspecified urinary incontinence; Z96.0 Presence of urogenital implants | CPT/HCPCS: 51798; 99212 ==

== ENCOUNTER → 2024-10-09 10:41 | Outpatient (BNVA) | payer MEDICARE, SELFPAY | PROVIDERS: PCP Family Medicine; Visit Provider Internal Medicine ==

== ENCOUNTER → 2024-10-16 09:22 | Outpatient (BNVA) | payer MEDICARE, SELFPAY | PROVIDERS: PCP Family Medicine; Visit Provider Internal Medicine ==

== ENCOUNTER → 2024-11-06 09:22 | Outpatient (BNVA) | payer MEDICARE, SELFPAY | PROVIDERS: PCP Family Medicine; Visit Provider Internal Medicine Medical Oncology ==

== ENCOUNTER → 2024-11-13 10:05 | Outpatient (BNVA) | payer MEDICARE, SELFPAY | PROVIDERS: PCP Family Medicine; Visit Provider Internal Medicine Medical Oncology ==

== ENCOUNTER 2024-11-15 08:36 | Outpatient (AMB) | payer MEDICARE, SELFPAY ==
--- NOTE | 2024-11-15 08:38 | A.OFFPC_ITS ---
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: No Allergies Seasonal Allergies Allergy (Severe, Verified 11/15/24 08:43) Itchy Eyes house dust Allergy (Intermediate, Verified 11/15/24 08:43) Sneezing aspirin Allergy (Unknown, Verified 11/15/24 08:43) Sick codeine [CODEINE] Adverse Reaction (Intermediate, Verified 11/15/24 08:43) NAUSEA & VOMITING ibuprofen [From ADVIL] Adverse Reaction (Intermediate, Verified 11/15/24 08:43) NAUSEA & VOMITING Medication List - Last Reconciled 11/15/24 by Marty Bernal MD albuterol sulfate 2.5 mg (3 mL) inhalation Q4H albuterol sulfate 90 mcg/actuation (Ventolin HFA) 1 puff inhalation QID PRN 30 days alendronate 70 mg PO QWEEK 28 days atorvastatin 80 mg PO BEDTIME [calcium with d PO] cefuroxime axetil 500 mg PO BID 7 days diltiazem HCl CD (Cardizem CD) 180 mg PO BID 90 days fluticasone propion-salmeterol 500-50 mcg/dose 1 inh inhalation BID 30 days fluticasone propionate 50 mcg/actuation (Flonase Allergy Relief) 1 spray intranasal Q12H PRN levothyroxine 137 mcg PO DAILY 90 days magnesium oxide 200 mg PO DAILY miscellaneous medical supply Xpro Ostomy Pouch, As directed, One month supply miscellaneous medical supply Ostomy Skin Barrier Ring, 1/16 inch thickness, As directed, 1 month Supply miscellaneous medical supply Ostomy SafenSimple No-Sting Skin Barrier Film, As directed, 30 day supply montelukast 10 mg PO DAILY [multivitamin PO] nystatin mL PO PRN omeprazole 20 mg PO DAILY 90 days pantoprazole (Protonix) 40 mg PO DAILY 90 days potassium chloride ER 20 mEq PO TID tiotropium bromide (Spiriva with HandiHaler) 1 cap inhalation DAILY torsemide 20 mg PO DAILY 90 days warfarin 5 mg See Protocol PO DAILY 90 days Tobacco use date assessed: 09/11/23 Dental Screening Dental Screen Date: 01/23/24 HPI f/u chronic conditions - see comments HPI Details 79 y/o female presents to /u chronic co nditions. She continues to use her inhaled medications. She notes she has been increasingly shortwinded and pt recently had a cold. She continues to follow up with urology for incontinence. [facility] Medical History Hypoxemia Allergic rhinitis Pleural effusion Nocturnal hypoxemia Exercise hypoxemia Chronic atrial fibrillation Prosthetic valve dysfunction Nocturnal hypoxemia COPD (chronic obstructive pulmonary disease) COPD (chronic obstructive pulmonary disease) (HFpEF) heart failure with preserved ejection fraction GERD (gastroesophageal reflux disease) Hypothyroid Hyperlipidemia Asthma Surgical History Hx of abdominal surgery History of hernia surgery History of salpingo-oophorectomy History of carpal tunnel release History of hysterectomy History of colonoscopy History of mechanical aortic valve replacement (~2002) Family History Mother No problems noted. Father Myocardial infarction CAD (coronary artery disease) Brother Myocardial infarction Brother Myocardial infarction Social History Housing: Other Housing Other:: Mobile Home Alcohol intake: never Patient Tobacco Use Status: Never used Tobacco e-Cigarette/Vaping Use: Never Used Second Hand Smoke Exposure: No service: No Current occupational status: retired Current occupational exposures/hazards: No Cognitive needs: No Hearing needs: No Vision needs: No Questionnaire PHQ-9 Over the last 2 weeks, how often have you been bothered by any of the following problems? 1. Little interest or pleasure in doing things: not at all 2. Feeling down, depressed, or hopeless: not at all Source: Developed by Drs. Gurmeet Acuña, Antoinette Shafer, Bao Gutierrez and colleagues, with an educational flaco from [employer]. Thrive Questionnaire Date Thrive assessed: 06/30/22 BECKY-7 AMB Questionnaire BECKY-7 Date BECKY - 7 assessed: 06/30/22 Source: Developed by Drs. Gurmeet Acuña, Antoinette Shafer, Bao Gutierrez and colleagues, with an educational flaco from [employer]. Review of Systems Const Denies chills, Denies fatigue, Denies fever(s), Denies headache(s) and Denies weakness ENT Denies dizziness and Denies headache(s) Card Reports dyspnea Resp Denies cough, Reports dyspnea, Denies wheezing and Denies other (shortness of breath) Musc Denies numbness and Denies tingling Neuro Denies dizziness, Denies headache(s), Denies numbness, Denies tingling and Denies weakness Psych Denies anxiety and Denies depression Endo Denies fatigue Aller/Immun Denies wheezing Physical exam (Primary Care) Vital Signs: Last Vital Signs Temp 98.6 F 11/15/24 08:45 Pulse 101 H 11/15/24 08:45 Resp 14 11/15/24 08:45 BP 120/60 11/15/24 08:45 Pulse Ox 98 11/15/24 08:45 Oxygen Delivery Method Nasal Cannula 11/15/24 08:45 Oxygen Flow Rate 2 11/15/24 08:45 BMI result Body Mass Index 24.2 Tobacco/Smoking Status: Tobacco use Status Tobacco use date assessed 09/11/23 11/15/24 08:39 Patient Tobacco Use Status Never used Tobacco 11/15/24 08:39 e-Cigarette/Vaping Use Never Used 11/15/24 08:39 Thrive Assessment: Date of Thrive Assessment Date Thrive assessed 06/30/22 11/15/24 08:39 Const General: well developed; No acute distress Nutritional Appearance: well nourished Orientation/consciousness: patient [facility]: Yes normocephalic and Yes atraumatic Eyes General: appearance normal, both eyes and all related structures Pupils: Equal, round and reactive pupils present EOM: EOMs intact bilaterally Resp Effort & Inspection: normal respiratory effort Auscultation: clear to auscultation bilaterally Cardio Rate: regular rate Rhythm: regular rhythm Heart sounds: S1 normal heart sound present, S2 normal heart sound present, no gallops, no murmurs and no rubs Neuro General: patient oriented x3 and gait normal Cranial nerves: Yes Equal, round and reactive pupils present Psych Affect: normal affect Coding Level of Care Code Est Pt Level 4 (72416) Diagnoses COPD (chronic obstructive pulmonary disease) J44.9 Chronic atrial fibrillation I48.20 (HFpEF) heart failure with preserved ejection fraction I50.30 Urinary incontinence R32 Pre-diabetes R73.03 Hypothyroidism E03.9 Assessment & Plan Assessment & Plan (1) COPD (chronic obstructive pulmonary disease): Comment: PATIENT HAS CHRONIC MODERATELY SEVERE OBSTRUCTIVE AIRWAY DISORDER, WHICH IS REMAINING WELL CONTROLLED WITH HER CURRENT MEDICAL REGIMEN. SHE HAS HAD NO ACUTE EXACERBATION Code(s): J44.9 - Chronic obstructive pulmonary disease, unspecified Category: Medical Plan: Lungs?are?clear?today.??Patient?has?had?a?recent?cold?and?notes?slightly?worsene d?breathing?from?this.??She?notes?he?does?seem?to?be?improving?now?however. Continue?inhaled?medications?and Singulair. Continue?oxygen Continue?Flonase?and?I?encouraged?nasal?saline Follow-up?with?pulmonology?as?recommended (2) Chronic atrial fibrillation: Code(s): I48.20 - Chronic atrial fibrillation, unspecified Category: Medical Plan: Patient?is?on?warfarin?and?stable Continue?medications?as?prescribed (3) (HFpEF) heart failure with preserved ejection fraction: Comment: It seems to be under control at this time. She is being followed by Cardiology very regularly. 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 Look?in?to?Farxiga?but?this?is?not?covered. Looked?into?generic?empagliflozin (Jardiance) and?database?seems?to?suggest?this?would?be?covered. Will?send?script?for?empagliflozin?and?she?will?pick?it?up?if?affordable. Checking?BNP?was?next?blood?draw (4) Urinary incontinence: Code(s): R32 - Unspecified urinary incontinence Category: Medical Plan: Symptoms?are?improve?s/p?pessary Follow-up?with?urology?as?recommended (5) Pre-diabetes: Code(s): R73.03 - Prediabetes Category: Medical Plan: History?of?pre?diabetes?though?most?recent?fasting?blood?sugar?was?within?normal ?range Will?recheck?A1c?with?next?blood?draw (6) Hypothyroidism: Code(s): E03.9 - Hypothyroidism, unspecified Category: Medical Plan: Due?to?check?thyroid?levels Continue?levothyroxine?as?prescribed Orders: Orders Comprehensive Met. Panel Today I50.30 - Unspecified diastolic (congestive) heart failure B Type Natriuretic Peptide Today I50.30 - Unspecified diastolic (congestive) heart failure, I50.9 - Heart failure, unspecified Thyroid Stimulating Hormone Today E03.9 - Hypothyroidism, unspecified Triiodothyronine T3 Total Today E03.9 - Hypothyroidism, unspecified Microalbumin, Random (w Creat) Today I10 - Essential (primary) hypertension, I50.30 - Unspecified diastolic (congestive) heart failure Free T4 (Free Thyroxine) Today E03.9 - Hypothyroidism, unspecified UA CC w/rflx Micro + Cult Today R32 - Unspecified urinary incontinence, Z00.00 - Encounter for general adult medical examination without abnormal findings Medications: New empagliflozin 10 mg PO QAM 90 days 90 tabs 2RF
[2024-11-15 08:45] VITALS: BP 120/60; PULSE 101; RESP 14; TEMP 37; O2SAT 98; BMI 24.2
== END 2024-11-15 09:11 | disposition home or self-care (01) ==
LOC: HO.HMCFM 08:36
PROVIDERS: PCP Family Medicine; Visit Provider Family Medicine
DX: J44.9 Chronic obstructive pulmonary disease, unspecified (principal); I48.20 Chronic atrial fibrillation, unspecified; I50.30 Unspecified diastolic (congestive) heart failure; R32 Unspecified urinary incontinence; R73.03 Prediabetes; E03.9 Hypothyroidism, unspecified

== ENCOUNTER → 2024-11-15 08:36 | Outpatient (BNVA) | payer MEDICARE, SELFPAY | PROVIDERS: PCP Family Medicine; Visit Provider Family Medicine | DX: J44.9 Chronic obstructive pulmonary disease, unspecified (principal); I48.20 Chronic atrial fibrillation, unspecified; I50.30 Unspecified diastolic (congestive) heart failure; R32 Unspecified urinary incontinence; R73.03 Prediabetes; E03.9 Hypothyroidism, unspecified | CPT/HCPCS: 99212 ==

== ENCOUNTER → 2024-11-20 10:16 | Outpatient (BNVA) | payer MEDICARE, SELFPAY | PROVIDERS: PCP Family Medicine; Visit Provider Internal Medicine Medical Oncology ==

== ENCOUNTER 2024-11-25 15:52 | Outpatient (AMB) | payer MEDICARE, SELFPAY ==
--- NOTE | 2024-11-25 15:32 | MHC.OFFVIS ---
Intake Visit Reasons: 2m/pessary maintenance Intake Note: Patient is present for 2 month Pessary Check Urology Med: None Antibiotic Allergy: None Blood Thinner: Warfarin Allergies Seasonal Allergies Allergy (Severe, Verified 11/25/24 16:02) Itchy Eyes house dust Allergy (Intermediate, Verified 11/25/24 16:02) Sneezing aspirin Allergy (Unknown, Verified 11/25/24 16:02) Sick codeine [CODEINE] Adverse Reaction (Intermediate, Verified 11/25/24 16:02) NAUSEA & VOMITING ibuprofen [From ADVIL] Adverse Reaction (Intermediate, Verified 11/25/24 16:02) NAUSEA & VOMITING HPI Comments Details: 11/25/24-- History of Present Illness The patient is a 79-year-old female presenting with pessary management due to discharge. She is experiencing discomfort and discharge associated with the size 7 Gilhorn pessary, which was intended to manage urinary incontinence. Urinary symptoms have improved since pessary introduction, significantly reducing incontinence episodes, although the patient expresses concern over the persistent odorous vaginal discharge. Initial attempts at utilizing a size 6 pessary failed due to frequent expulsion, requiring transition to a size 7, now causing fitting issues and associated bloody discharge. Home management includes flushing with soapy water. There are no signs of urinary tract infection such as burning or painful urination. Recent attempts to extract the pessary revealed positioning challenges contributing to trauma and bleeding. A prior attempt involved using a smaller pessary size, but it was ineffective due to frequent dislodgement. Urinary Symptoms Review - Presence of urinary incontinence with prior frequency. - Improvement noted with pessary use. - No pain or burning during urination. - Occasional bloody discharge associated with pessary fitting. - Previous issues with size 6 pessary expulsion. - Pessary management with soapy water flushing. Results Discussion Notes Plan To address the issues with pessary-related discharge, the size 7 Gilhorn pessary was replaced with a size 6 model. Previous issues with the size 6 pessary were acknowledged, but current fitting issues necessitated reconsideration. I instructed the patient in home care including soapy water flushes as needed to manage discharge and odor. She was advised to follow up in two months, at which point reevaluation of the current pessary's effectiveness and possible adjustment may be considered necessary. Potential complications will be monitored, and emphasis was placed on communication should symptoms exacerbate. Patient Instructions - Use soapy water flushes to help manage discharge and odor. - Monitor for any changes in symptom severity, especially concerning bloody discharge. - Follow up in two months for reassessment of the pessary fitting. - Contact the clinic if the pessary discharges or if symptoms worsen. - Practice good hygiene with regular cleaning, especially after discharge occurrences. Patient was informed and verbally consented to the use of an ambient scribe for clinic note documentation during this visit. 09/27/24--Pessary staying in place, had UTI symptoms left urine at lab. Ceftin 500 mg bid for 7 days, FU in 2 months pessary maintenance. 08/26/24-- Here for pessary fitting, ring pessaries did not support prolapse Trial Gelhorn size 6 fell out with squatting and bending. Gelhorn size 7 placed and stayed when she squatted. Reviewed renal ultrasound 08/08/2024--bilateral simple cysts negative for renal stones. The patient was unable to urinate at time of procedure due to prolapsed bladder. 06/10/24--here for cysto and pessary fitting. Cystoscopy findings: Mild bladder wall thickening, no suspicious bladder lesions visualized. Pessary fitting: Size 3, 4, and 5 mentor pessary with support placed vaginally, all three fell out in the office. Will order gelhorn pessaries to trial on FU. 04/24/24--Persistent UTI. After hospitalization Required 3 courses of antibiotics ?bladder dropped? 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 Has urinary symptoms of slowing of urinary stream as well as urgency and leakage. She wears a pad Plan renal ultrasound follow-up office cystoscopy pessary fitting [facility] Medical History Hypoxemia Allergic rhinitis Pleural effusion Nocturnal hypoxemia Exercise hypoxemia Chronic atrial fibrillation Prosthetic valve dysfunction Nocturnal hypoxemia COPD (chronic obstructive pulmonary disease) COPD (chronic obstructive pulmonary disease) (HFpEF) heart failure with preserved ejection fraction GERD (gastroesophageal reflux disease) Hypothyroid Hyperlipidemia Asthma Surgical History Hx of abdominal surgery History of hernia surgery History of salpingo-oophorectomy History of carpal tunnel release History of hysterectomy History of colonoscopy History of mechanical aortic valve replacement (~2002) Family History Mother No problems noted. Father Myocardial infarction CAD (coronary artery disease) Brother Myocardial infarction Brother Myocardial infarction Social History Housing: Other Housing Other:: Mobile Home Alcohol intake: never Patient Tobacco Use Status: Never used Tobacco e-Cigarette/Vaping Use: Never Used Second Hand Smoke Exposure: No service: No Current occupational status: retired Current occupational exposures/hazards: No Cognitive needs: No Hearing needs: No Vision needs: No Results AMB Urinalysis, Automated UA Leukoctes 500 Cuco/uL Last Edit by Ericka Cruz on 11/25/24 16:35 UA Nitrite Negative Last Edit by Ericka Cruz on 11/25/24 16:35 UA Urobilinogen 0.2 mg/dL Last Edit by Ericka Cruz on 11/25/24 16:35 UA Protein 100 mg/dL Last Edit by Ericka Cruz on 11/25/24 16:35 UA pH 6.0 Last Edit by Ericka Crzu on 11/25/24 16:35 UA Blood 200 Elías/uL Last Edit by Ericka Cruz on 11/25/24 16:35 UA Specific [place] 1.015 Last Edit by Ericka Cruz on 11/25/24 16:35 UA Ketone Negative Last Edit by Ericka Cruz on 11/25/24 16:35 UA Bilirubin 0 mg/dL Last Edit by Ericka Cruz on 11/25/24 16:35 UA Glucose 0 mg/dL Last Edit by Ericka Cruz on 11/25/24 16:35 Coding
== END 2024-11-25 16:37 | disposition home or self-care (01) ==
LOC: HO.HUSH 15:52
PROVIDERS: PCP Family Medicine; Visit Provider Urology
DX: Z13.9 Encounter for screening, unspecified (principal)

== ENCOUNTER → 2024-11-25 15:52 | Outpatient (BNVA) | payer MEDICARE, SELFPAY | PROVIDERS: PCP Family Medicine; Visit Provider Urology | DX: R32 Unspecified urinary incontinence (principal); N81.10 Cystocele, unspecified; Z96.0 Presence of urogenital implants; Z87.440 Personal history of urinary (tract) infections | CPT/HCPCS: 81003; 99212 ==

== ENCOUNTER → 2024-11-27 09:00 | Outpatient (BNVA) | payer MEDICARE, SELFPAY | PROVIDERS: PCP Family Medicine; Visit Provider Internal Medicine Medical Oncology ==

== ENCOUNTER 2024-11-29 14:00 | Outpatient (AMB) | payer MEDICARE, SELFPAY ==
--- NOTE | 2024-11-29 14:11 | A.OFFVIS_ITS ---
Intake Visit Reasons: Pessary f/u Intake Note: Patient is present for a follow up/ Pessary Check Urology Med:Potassium Antibiotic Allergy: None Blood Thinner: Warfarin Allergies Seasonal Allergies Allergy (Severe, Verified 01/22/25 10:03) Itchy Eyes house dust Allergy (Intermediate, Verified 01/22/25 10:03) Sneezing aspirin Allergy (Unknown, Verified 01/22/25 10:03) Sick codeine [CODEINE] Adverse Reaction (Intermediate, Verified 01/22/25 10:03) NAUSEA & VOMITING ibuprofen [From ADVIL] Adverse Reaction (Intermediate, Verified 01/22/25 10:03) NAUSEA & VOMITING HPI Comments Details: 11/29/24--the patient returns today and states that the Gellhorn pessary fell out. I have tried to replace it today. But it has again come out when the patient went to the bathroom. I have discussed ordering a larger pessary. 11/25/24--The patient is a 79-year-old female presenting with pessary management due to discharge. She is experiencing discomfort and discharge associated with the size 7 Gellhorn pessary, which was intended to manage prolapse and has helped with urinary incontinence. Urinary symptoms have improved since pessary introduction, significantly reducing incontinence episodes, although the patient expresses concern over the persistent odorous vaginal discharge. Initial attempts at utilizing a size 6 pessary failed due to frequent expulsion, requiring transition to a size 7, now causing fitting issues and associated bloody discharge. There are no signs of urinary tract infection such as burning or painful urination. Urinary Symptoms Review - Presence of urinary incontinence with prior frequency. - Improvement noted with pessary use. - No pain or burning during urination. - Occasional bloody discharge associated with pessary - Previous issues with size 6 pessary expulsion. Plan: Gelhorn size 7 pessary cleaned and replaced. FU in 2 months 09/27/24--Pessary staying in place, had UTI symptoms left urine at lab. Ceftin 500 mg bid for 7 days, FU in 2 months pessary maintenance. 08/26/24-- Here for pessary fitting, ring pessaries did not support prolapse Trial Gelhorn size 6 fell out with squatting and bending. Gelhorn size 7 placed and stayed when she squatted. Reviewed renal ultrasound 08/08/2024--bilateral simple cysts negative for renal stones. The patient was unable to urinate at time of procedure due to prolapsed bladder. 06/10/24--here for cysto and pessary fitting. Cystoscopy findings: Mild bladder wall thickening, no suspicious bladder lesions visualized. Pessary fitting: Size 3, 4, and 5 mentor pessary with support placed vaginally, all three fell out in the office. Will order gelhorn pessaries to trial on FU. 04/24/24--Persistent UTI. After hospitalization Required 3 courses of antibiotics ?bladder dropped? states had a pessary in the past placed by marketing analytics specialist. Has urinary symptoms of slowing of urinary stream as well as urgency and leakage. She wears a pad Plan renal ultrasound follow-up office cystoscopy pessary fitting [facility] Medical History Hypoxemia Allergic rhinitis Pleural effusion Nocturnal hypoxemia Exercise hypoxemia Chronic atrial fibrillation Prosthetic valve dysfunction Nocturnal hypoxemia COPD (chronic obstructive pulmonary disease) COPD (chronic obstructive pulmonary disease) (HFpEF) heart failure with preserved ejection fraction GERD (gastroesophageal reflux disease) Hypothyroid Hyperlipidemia Asthma Surgical History Hx of abdominal surgery History of hernia surgery History of salpingo-oophorectomy History of carpal tunnel release History of hysterectomy History of colonoscopy History of mechanical aortic valve replacement (~2002) Family History Mother No problems noted. Father Myocardial infarction CAD (coronary artery disease) Brother Myocardial infarction Brother Myocardial infarction Social History Housing: Other Housing Other:: Mobile Home Alcohol intake: never Patient Tobacco Use Status: Never used Tobacco e-Cigarette/Vaping Use: Never Used Second Hand Smoke Exposure: No service: No Current occupational status: retired Current occupational exposures/hazards: No Cognitive needs: No Hearing needs: No Vision needs: No Review of Systems Const All systems reviewed & are unremarkable except as noted in HPI and below Reports no additional complaints Eyes Reports no additional complaints ENT Reports no additional complaints Card Reports no additional complaints Resp Reports no additional complaints GI Reports no additional complaints Reports as per HPI Musc Reports no additional complaints Skin/Breast Reports system reviewed and no additional complaints, except as documented Neuro Reports no additional complaints Psych Reports no additional complaints Endo Reports no additional complaints Marcelino/Lymph Reports no additional complaints Aller/Immun Reports no additional complaints Assessment & Plan Assessment & Plan (1) Female cystocele: Code(s): N81.10 - Cystocele, unspecified Category: Medical Plan Plan: Gelhorn size 7 pessary is not staying in place, will try a larger size. Patient Instructions: The patient had an opportunity to ask questions regarding treatment plan. The patient expressed understanding and agreement with the above treatment plan. The patient is aware they should contact our office by phone for worsening of their current condition or the appearance of new symptoms. Compliance is encouraged with any medications and followup testing that is ordered. It is a privilege to be allowed the opportunity to participate in the urologic care of your patient. If you have any questions or concerns regarding treatment for the above conditions please do not hesitate to contact me. The office telephone contact is [phone]. This note is constructed in part using voice recognition software. While every effort has been made to ensure accuracy rolling attendant errors may have been inclu ded. Yours sincerely, Alex Franklin MD Coding Level of Care Code Est Pt Level 2 (59924) Diagnoses Female cystocele N81.10
== END 2024-11-29 14:38 | disposition home or self-care (01) ==
LOC: HO.HUSH 14:01
PROVIDERS: PCP Family Medicine; Visit Provider Urology
DX: N81.10 Cystocele, unspecified (principal)
CPT/HCPCS: 99212

== ENCOUNTER → 2024-11-29 14:00 | Outpatient (BNVA) | payer MEDICARE, SELFPAY | PROVIDERS: PCP Family Medicine; Visit Provider Urology | DX: N81.10 Cystocele, unspecified (principal) | CPT/HCPCS: 99212 ==

== ENCOUNTER → 2024-12-04 10:53 | Outpatient (BNVA) | payer MEDICARE, SELFPAY | PROVIDERS: PCP Family Medicine; Visit Provider Internal Medicine Medical Oncology ==

== ENCOUNTER 2025-01-10 09:41 | Outpatient (REF) | payer MEDICARE, SELFPAY ==
[2025-01-10 12:17] LABS: B Type Natriuretic Peptide 216 pg/mL (<100)
[2025-01-10 13:12] LABS: Alanine Aminotransferase 15 U/L (0-31); Alkaline Phosphatase 41 U/L (39-117); Anion Gap 13 (12-20); Aspartate Amino Transferase 28 U/L (5-31); Bilirubin Total 0.4 mg/dL (0.0-1.0); Blood Urea Nitrogen 15 mg/dL (9-16); Calcium 9.8 mg/dL (8.4-10.2); Carbon Dioxide 28 mmol/L (22-29); Chloride 106 mmol/L (96-108); Estimated Glomerular Filt Rate > 60; Free T4 (Free Thyroxine) 1.21 ng/dL (0.71-1.85); Glucose Random 84 mg/dL (60-115); Sodium 143 mmol/L (135-145); Thyroid Stimulating Hormone 1.08 uIU/mL (0.32-4.0); Total Protein 7.5 g/dL (6.5-8.0)
[2025-01-11 09:38] LABS: Triiodothyronine T3 Total 77 ng/dL (76-181)
[2025-01-13 12:49] LABS: Microalbum/Creatinine Ratio Ur 31.4 ug/mg cr (<30)
== END 2025-01-10 09:42 | disposition home or self-care (01) ==
LOC: HO.WFDLDS 09:41
PROVIDERS: Visit Provider Family Medicine
DX: Z00.00 Encounter for general adult medical examination without abnormal findings (principal); I50.30 Unspecified diastolic (congestive) heart failure; I11.0 Hypertensive heart disease with heart failure; E03.9 Hypothyroidism, unspecified; I10 Essential (primary) hypertension
CPT/HCPCS: 36415; 80053; 82043; 82570; 83880; 84439; 84443; 84480

== ENCOUNTER → 2025-01-14 16:58 | Outpatient (BNVA) | payer MEDICARE, SELFPAY | PROVIDERS: PCP Family Medicine; Visit Provider Family Medicine ==

== ENCOUNTER → 2025-01-14 16:58 | Outpatient (AMB) | payer MEDICARE, SELFPAY ==
--- NOTE | 2025-01-14 16:44 | MHC.PC.OV ---
Intake Visit Reasons: f/u labs via telemedicine Allergies Seasonal Allergies Allergy (Severe, Verified 01/14/25 16:44) Itchy Eyes house dust Allergy (Intermediate, Verified 01/14/25 16:44) Sneezing aspirin Allergy (Unknown, Verified 01/14/25 16:44) Sick codeine [CODEINE] Adverse Reaction (Intermediate, Verified 01/14/25 16:44) NAUSEA & VOMITING ibuprofen [From ADVIL] Adverse Reaction (Intermediate, Verified 01/14/25 16:44) NAUSEA & VOMITING Tobacco use date assessed: 09/11/23 Dental Screening Dental Screen Date: 01/23/24 HPI f/u labs via telemedicine HPI Details 79 y/o female presents to review hypothyroidism, prediabetes and labwork via telemedicine. Labs drawn 01/10/25. Reviewed labs with pt. TSH 1.08 uIU/mL. Free T4 1.21. Total T3 77. BNP 216 pg/mL. Random glucose 84. PFSH Medical History Hypoxemia Allergic rhinitis Pleural effusion Nocturnal hypoxemia Exercise hypoxemia Chronic atrial fibrillation Prosthetic valve dysfunction Nocturnal hypoxemia COPD (chronic obstructive pulmonary disease) COPD (chronic obstructive pulmonary disease) (HFpEF) heart failure with preserved ejection fraction GERD (gastroesophageal reflux disease) Hypothyroid Hyperlipidemia Asthma Surgical History Hx of abdominal surgery History of hernia surgery History of salpingo-oophorectomy History of carpal tunnel release History of hysterectomy History of colonoscopy History of mechanical aortic valve replacement (~2002) Family History Mother No problems noted. Father Myocardial infarction CAD (coronary artery disease) Brother Myocardial infarction Brother Myocardial infarction Social History Housing: Other Housing Other:: Mobile Home Alcohol intake: never Patient Tobacco Use Status: Never used Tobacco e-Cigarette/Vaping Use: Never Used Second Hand Smoke Exposure: No service: No Current occupational status: retired Current occupational exposures/hazards: No Cognitive needs: No Hearing needs: No Vision needs: No Questionnaire Thrive Questionnaire Date Thrive assessed: 06/30/22 BECKY-7 AMB Questionnaire BECKY-7 Date BECKY - 7 assessed: 06/30/22 Source: Developed by Drs. Gurmeet Acuña, Antoinette Shafer, Bao Gutierrez and colleagues, with an educational flaco from [employer]. Review of Systems Const Denies chills, Denies fatigue, Denies fever(s), Denies headache(s) and Denies weakness ENT Denies dizziness and Denies headache(s) Card Denies dyspnea Resp Denies cough, Denies dyspnea, Denies wheezing and Denies other (shortness of breath) Musc Denies numbness and Denies tingling Neuro Denies dizziness, Denies headache(s), Denies numbness, Denies tingling and Denies weakness Psych Denies anxiety and Denies depression Endo Denies fatigue Aller/Immun Denies wheezing Physical exam (Primary Care) Tobacco/Smoking Status: Tobacco use Status Tobacco use date assessed 09/11/23 01/14/25 16:46 Patient Tobacco Use Status Never used Tobacco 01/14/25 16:46 e-Cigarette/Vaping Use Never Used 01/14/25 16:46 Thrive Assessment: Date of Thrive Assessment Date Thrive assessed 06/30/22 01/14/25 16:46 Telehealth Telehealth Telehealth Platform: Telephone Location of provider rendering services: practice address Location of patient: address on file Patient Identification confirmed using: Name, : Yes Telehealth method: voice only Patient verbally consented to treatment: Yes Patient verbally consented to billing insurance company: Yes Patient informed of any privacy concerns related to visit: Yes Minutes spent on Phone/Video with Pt.: 3 Coding Level of Care Code Tele Est Pt Level 2 (19225) Diagnoses Hypothyroidism E03.9 (HFpEF) heart failure with preserved ejection fraction I50.30 Pre-diabetes R73.03 Assessment & Plan Assessment & Plan (1) Hypothyroidism: Code(s): E03.9 - Hypothyroidism, unspecified Category: Medical Plan: Thyroid?hormone?levels?are?within?normal?range Continue?levothyroxine?as?prescribed (2) (HFpEF) heart failure with preserved ejection fraction: Comment: It seems to be under control at this time. She is being followed by Cardiology very regularly. Code(s): I50.30 - Unspecified diastolic (congestive) heart failure Category: Medical Plan: Patient?is?breathing?well No?orthopnea?and?BNP?is?stable?at?216 (prior?226) Will?continue?to?monitor (3) Pre-diabetes: Code(s): R73.03 - Prediabetes Category: Medical Plan: Random?blood?sugar?within?normal?range Encouraged?diet?low?in?sugars?and?starches Will?continue?to?monitor
== END ==
LOC: HO.HMCFM 16:58
PROVIDERS: PCP Family Medicine; Visit Provider Family Medicine
DX: E03.9 Hypothyroidism, unspecified (principal); I50.30 Unspecified diastolic (congestive) heart failure; R73.03 Prediabetes

== ENCOUNTER 2025-01-24 09:00 | Outpatient (REF) | payer MEDICARE, SELFPAY | END 2025-01-24 09:01 | disposition home or self-care (01) | LOC: HO.WFDLDS 09:00 | PROVIDERS: Visit Provider Family Medicine | DX: Z13.89 Encounter for screening for other disorder (principal) ==

== ENCOUNTER 2025-01-27 15:46 | Outpatient (AMB) | payer MEDICARE, SELFPAY ==
--- NOTE | 2025-01-27 16:01 | A.OFFVIS_ITS ---
Intake Visit Reasons: 2 month follow up Intake Note: Patient is present for 2 month follow up/Pessary Check Urology Med:Potassium Antibiotic Allergy: None Blood Thinner: Warfarin Allergies Seasonal Allergies Allergy (Severe, Verified 01/27/25 16:02) Itchy Eyes house dust Allergy (Intermediate, Verified 01/27/25 16:02) Sneezing aspirin Allergy (Unknown, Verified 01/27/25 16:02) Sick codeine [CODEINE] Adverse Reaction (Intermediate, Verified 01/27/25 16:02) NAUSEA & VOMITING ibuprofen [From ADVIL] Adverse Reaction (Intermediate, Verified 01/27/25 16:02) NAUSEA & VOMITING HPI Comments Details: 01/27/25-- History of Present Illness - The patient is a 79-year-old female presenting with a pessary fitting for pelvic organ prolapse management. - The patient has experienced urinary symptoms, including difficulty urinating, leading to the pessary fitting. - A Gellhorn size 9 pessary was selected to manage the prolapse, with awareness of potential vaginal bleeding due to tissue pressure. - Urinalysis showed 3 plus blood and 1 plus leukocytes, indicating a urinary tract infection. - Empirical antibiotics have been initiated pending urine culture results. Urinary Symptoms Review - Difficulty urinating noted, prompting pessary fitting. - Urinalysis results: 3 plus blood, 1 plus leukocytes, indicating urinary tract infection. Results - Urinalysis: 3 plus blood, 1 plus leukocytes Discussion Notes I discussed with the patient the fitting of a Gellhorn size 9 pessary to manage her pelvic organ prolapse. We reviewed the potential risk of vaginal bleeding due to tissue pressure from the pessary. I advised her to monitor for any signs of bleeding or discomfort and to report these immediately. We also discussed the urinalysis results indicating a urinary tract infection, and I explained the plan to start empirical antibiotics while awaiting urine culture results. Follow-up was scheduled in two months to reassess the pessary fitting and address any ongoing issues. Plan - Start empirical antibiotics for urinary tract infection pending urine culture results. - Monitor for any vaginal bleeding or discomfort due to pessary use and report immediately. - Schedule follow-up in two months to reassess pessary fitting and address any ongoing issues. Patient Instructions - Take prescribed antibiotics as directed. - Monitor for any signs of vaginal bleeding or discomfort and report immediately. - Return for follow-up in two months. Patient was informed and verbally consented to the use of an ambient scribe for clinic note documentation during this visit. 11/29/24--the patient returns today and states that the Gellhorn pessary fell out. I have tried to replace it today. But it has again come out when the patient went to the bathroom. I have discussed ordering a larger pessary. 11/25/24--The patient is a 79-year-old female presenting with pessary management due to discharge. She is experiencing discomfort and discharge associated with the size 7 Gellhorn pessary, which was intended to manage prolapse and has helped with urinary incontinence. Urinary symptoms have improved since pessary introduction, significantly reducing incontinence episodes, although the patient expresses concern over the persistent odorous vaginal discharge. Initial attempts at utilizing a size 6 pessary failed due to frequent expulsion, requiring transition to a size 7, now causing fitting issues and associated bloody discharge. There are no signs of urinary tract infection such as burning or painful urination. Urinary Symptoms Review - Presence of urinary incontinence with prior frequency. - Improvement noted with pessary use. - No pain or burning during urination. - Occasional bloody discharge associated with pessary - Previous issues with size 6 pessary expulsion. Plan: Gelhorn size 7 pessary cleaned and replaced. FU in 2 months 09/27/24--Pessary staying in place, had UTI symptoms left urine at lab. Ceftin 500 mg bid for 7 days, FU in 2 months pessary maintenance. 08/26/24-- Here for pessary fitting, ring pessaries did not support prolapse Trial Gelhorn size 6 fell out with squatting and bending. Gelhorn size 7 placed and stayed when she squatted. Reviewed renal ultrasound 08/08/2024--bilateral simple cysts negative for renal stones. The patient was unable to urinate at time of procedure due to prolapsed bladder. 06/10/24--here for cysto and pessary fitting. Cystoscopy findings: Mild bladder wall thickening, no suspicious bladder lesions visualized. Pessary fitting: Size 3, 4, and 5 mentor pessary with support placed vaginally, all three fell out in the office. Will order gelhorn pessaries to trial on FU. 04/24/24--Persistent UTI. After hospitalization Required 3 courses of antibiotics ?bladder dropped? states had a pessary in the past placed by channeling machine runner. Has urinary symptoms of slowing of urinary stream as well as urgency and leakage. She wears a pad Plan renal ultrasound follow-up office cystoscopy pessary fitting [facility] Medical History Hypoxemia Allergic rhinitis Pleural effusion Nocturnal hypoxemia Exercise hypoxemia Chronic atrial fibrillation Prosthetic valve dysfunction Nocturnal hypoxemia COPD (chronic obstructive pulmonary disease) COPD (chronic obstructive pulmonary disease) (HFpEF) heart failure with preserved ejection fraction GERD (gastroesophageal reflux disease) Hypothyroid Hyperlipidemia Asthma Surgical History Hx of abdominal surgery History of hernia surgery History of salpingo-oophorectomy History of carpal tunnel release History of hysterectomy History of colonoscopy History of mechanical aortic valve replacement (~2002) Family History Mother No problems noted. Father Myocardial infarction CAD (coronary artery disease) Brother Myocardial infarction Brother Myocardial infarction Social History Housing: Other Housing Other:: Mobile Home Alcohol intake: never Patient Tobacco Use Status: Never used Tobacco e-Cigarette/Vaping Use: Never Used Second Hand Smoke Exposure: No service: No Current occupational status: retired Current occupational exposures/hazards: No Cognitive needs: No Hearing needs: No Vision needs: No Results AMB Urinalysis, Automated UA Leukoctes 70 Cuco/uL Last Edit by KENNA Lawson on 01/27/25 17:05 UA Nitrite Last Edit by Tutu Lyons CCM on 01/27/25 17:05 UA Urobilinogen 0.2 mg/dL Last Edit by Tutu Lyons CCM on 01/27/25 17:0 5 UA Protein 0 mg/dL Last Edit by KENNA Lawson on 01/27/25 17:05 UA pH 6.0 Last Edit by Tutu Lyons CCM on 01/27/25 17:05 UA Blood 200 Elías/uL Last Edit by Tutu Lyons CCM on 01/27/25 17:05 UA Specific [place] 1.010 Last Edit by Tutu Lyons [facility] on 01/27/25 17: 05 UA Ketone Last Edit by KENNA Lawson on 01/27/25 17:05 UA Bilirubin 0 mg/dL Last Edit by KENNA Lawson on 01/27/25 17:05 UA Glucose 0 mg/dL Last Edit by KENNA Lawson on 01/27/25 17:05 Assessment & Plan Assessment & Plan Orders: Orders AMB Urinalysis Automated Today Z13.9 - Encounter for screening, unspecified Urine Culture Today Z87.440 - Personal history of urinary (tract) infections Coding
== END 2025-01-27 16:46 | disposition home or self-care (01) ==
LOC: HO.HUSH 15:47
PROVIDERS: PCP Family Medicine; Visit Provider Urology
DX: Z13.9 Encounter for screening, unspecified (principal)

== ENCOUNTER 2025-01-27 15:46 | Outpatient (REF) | payer MEDICARE, SELFPAY | END 2025-01-27 15:47 | disposition home or self-care (01) | LOC: HO.LNP 15:46 | PROVIDERS: PCP Family Medicine; Visit Provider Urology | DX: Z87.440 Personal history of urinary (tract) infections (principal); Z13.9 Encounter for screening, unspecified | CPT/HCPCS: 81003; 87086; 87088; 87186 ==

== ENCOUNTER 2025-01-28 17:38 | Outpatient (REF) | payer MEDICARE, SELFPAY ==
[2025-01-28 17:49] LABS: Appearance Urine Cloudy; Color Urine Yellow; Glucose Urine UA Negative (Negative); Leukocyte Esterase Urine Large (3+) (Negative); Nitrite Urine Negative (Negative); PH 5.5 (5.0-9.0); Specific Gravity - Urine 1.015 (1.005-1.025); UMIC TRIGGER UACC YES; Urine Blood Moderate (2+) (Negative); Urine Ketones Negative (Negative); Urine Protein Trace mg/dL (Neg-Trace)
[2025-01-28 17:51] LABS: Bacteria Urine 1+ (None Seen); RBC Urine >20 /HPF (0-2); UACC Culture Trigger YES; WBC Urine >50 /HPF (0-5)
== END 2025-01-28 17:39 | disposition home or self-care (01) ==
LOC: HO.LNP 17:38
PROVIDERS: Family Medicine; Visit Provider Urology
DX: Z87.440 Personal history of urinary (tract) infections (principal)
CPT/HCPCS: 81001; 87086

== ENCOUNTER 2025-02-05 13:05 | Outpatient (AMB) | payer MEDICARE, SELFPAY ==
--- NOTE | 2025-02-05 13:15 | MHC.OFFVISCO ---
Intake Intake Visit Reasons: Anticoagulation Allergies Seasonal Allergies Allergy (Severe, Verified 02/05/25 13:07) Itchy Eyes house dust Allergy (Intermediate, Verified 02/05/25 13:07) Sneezing aspirin Allergy (Unknown, Verified 02/05/25 13:07) Sick codeine (CODEINE) Adverse Reaction (Intermediate, Verified 02/05/25 13:07) NAUSEA & VOMITING ibuprofen (From ADVIL) Adverse Reaction (Intermediate, Verified 02/05/25 13:07) NAUSEA & VOMITING Medication List - Last Reconciled 02/05/25 by Charley Carbajal RN albuterol sulfate 2.5 mg (3 mL) inhalation Q4H albuterol sulfate 90 mcg/actuation (Ventolin HFA) 1 puff inhalation QID PRN 30 days alendronate 70 mg PO QWEEK 28 days atorvastatin 80 mg PO BEDTIME [calcium with d PO] diltiazem HCl CD (Cardizem CD) 180 mg PO BID 90 days empagliflozin 10 mg PO QAM 90 days fluticasone propion-salmeterol 500-50 mcg/dose 1 inh inhalation BID 30 days fluticasone propionate 50 mcg/actuation (Flonase Allergy Relief) 1 spray intranasal Q12H PRN levothyroxine 137 mcg PO DAILY 90 days magnesium oxide 200 mg PO DAILY miscellaneous medical supply Xpro Ostomy Pouch, As directed, One month supply miscellaneous medical supply Ostomy Skin Barrier Ring, 1/16 inch thickness, As directed, 1 month Supply miscellaneous medical supply Ostomy SafenSimple No-Sting Skin Barrier Film, As directed, 30 day supply montelukast 10 mg PO DAILY [multivitamin PO] nystatin mL PO PRN omeprazole 20 mg PO DAILY 90 days pantoprazole (Protonix) 40 mg PO DAILY 90 days Held on 07/22/24. Instructions: on hold phenazopyridine (Pyridium) 100 mg PO BID PRN 3 days potassium chloride ER 20 mEq PO TID tiotropium bromide (Spiriva with HandiHaler) 1 cap inhalation DAILY torsemide 20 mg PO DAILY 90 days warfarin 5 mg See Protocol PO DAILY 90 days Nursing Note INR: 2.8- in therapeutic range of 2-3 Medications and supplements reviewed- finished antibiotics on monday pt medications reviewed with pt- question to pt on fosamax, empagliflozin and pyridium- pt will check with meds at home risk scores done No changes in health, diet, medications, or supplements, Denies any signs and symptoms of bleeding or bruising or clotting. Bleeding, bruising, clotting discussed Nutritional guidance given Dose: 5mg x 6, 2.5mg x 1 F/U INR: 1 week Patient verbalizes understanding of instructions given meter to meter correlation done- pt meter 2.8, acs meter 2.8. pt demonstrates good techniche, pt meter memory check x 5 previous visits and accurate Anti-Coag Initial Assessment Social Hx Patient Tobacco Use Status: Never used Tobacco alcohol intake: never Questionnaires HAS-BLED Does the patient had uncontrolled Hypertension?: No Does the patient have renal disease?: No Does the patient have liver disease?: No Does the patient have a history of stroke?: No Has the patient had major bleeding or predisposition to bleeding?: Yes Does the patient have labile INRs?: No Is the patient over 65 years of age?: Yes Is the patient on medications that gives them a predisposition to bleeding?: Yes Does the patient use alcohol?: No HAS-BLED Score: 3 CHADSVASC Age: 75 or over Gender: Female Does the patient have a history of CHF?: Yes Does the patient have a history of Hypertension?: No Does the patient have a history of Stroke/TIA/Thromboembolism?: No Does the patient have a history of Vascular Disease (prior AR, PAD or aortic plaque)?: No Does the patient have a history of Diabetes?: No CHADS VACS Score: 4 Hair Prediction Score Rsk VTE Active Cancer: No Previous VTE, excluding superficial vein thrombosis: No Reduced mobility: No Already known Thrombophilic Condition: No With-in last month Trauma and/or Surgery: No Elderly 70 year or older: Yes Heart and/or Respiratory Failure: No Acute Myocardial infarction and/or Ischemic Stroke: No Acute Infection and/or Rheumatologic Disorder: Yes Obesity (BMI 30 or greater): No Ongoing Hormonal Treatment: No Score: 2 Hair Score less than 4; Low Risk of VTE Hair Score 4 or greater; High Risk of VTE Coding Level of Care Code Est Patient Level 2 Diagnoses Current use of anticoagulant therapy Z79.01 Assessment & Plan Assessment & Plan (1) Current use of anticoagulant therapy: Code(s): Z79.01 - snf (current) use of anticoagulants Category: Medical
[2025-02-05 13:25] LABS: Prothrombin Time Whole Bld POC 33.3 sec (11.1-13.5); ~PT, ~INR - Anti Coag Clinic 2.8 (0.9-1.1)
== END 2025-02-05 13:40 | disposition home or self-care (01) ==
LOC: HO.ACS 13:05
PROVIDERS: PCP Family Medicine; Visit Provider Internal Medicine Medical Oncology
DX: Z79.01 Long term (current) use of anticoagulants (principal)

== ENCOUNTER → 2025-02-05 13:05 | Outpatient (BNVA) | payer MEDICARE, SELFPAY | PROVIDERS: PCP Family Medicine; Visit Provider Internal Medicine Medical Oncology | DX: Z79.01 Long term (current) use of anticoagulants (principal) | CPT/HCPCS: 85610; 99212 ==

== ENCOUNTER → 2025-02-26 08:39 | Outpatient (BNVA) | payer MEDICARE, SELFPAY | PROVIDERS: PCP Family Medicine; Visit Provider Internal Medicine Medical Oncology | DX: I48.20 Chronic atrial fibrillation, unspecified (principal); Z79.01 Long term (current) use of anticoagulants; Z51.81 Encounter for therapeutic drug level monitoring | CPT/HCPCS: 99212 ==

== ENCOUNTER 2025-02-26 13:44 | Outpatient (AMB) | payer MEDICARE, SELFPAY ==
[2025-02-26 13:48] VITALS: PULSE 108; O2SAT 95; BMI 22.6
--- NOTE | 2025-02-26 13:48 | A.OFFVIS_ITS ---
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: No Allergies Seasonal Allergies Allergy (Severe, Verified 02/26/25 14:05) Itchy Eyes house dust Allergy (Intermediate, Verified 02/26/25 14:05) Sneezing aspirin Allergy (Unknown, Verified 02/26/25 14:05) Sick codeine (CODEINE) Adverse Reaction (Intermediate, Verified 02/26/25 14:05) NAUSEA & VOMITING ibuprofen (From ADVIL) Adverse Reaction (Intermediate, Verified 02/26/25 14:05) NAUSEA & VOMITING Medication List - Last Reconciled 02/26/25 by Gretel Dorman MD albuterol sulfate 2.5 mg (3 mL) inhalation Q4H albuterol sulfate 90 mcg/actuation (Ventolin HFA) 1 puff inhalation QID PRN 30 days alendronate 70 mg PO QWEEK 28 days atorvastatin 80 mg PO BEDTIME [calcium with d PO] diltiazem HCl CD (Cardizem CD) 180 mg PO BID 90 days empagliflozin 10 mg PO QAM 90 days fluticasone propion-salmeterol 500-50 mcg/dose 1 inh inhalation BID 30 days fluticasone propionate 50 mcg/actuation (Flonase Allergy Relief) 1 spray intranasal Q12H PRN levothyroxine 137 mcg PO DAILY 90 days magnesium oxide 200 mg PO DAILY miscellaneous medical supply Xpro Ostomy Pouch, As directed, One month supply miscellaneous medical supply Ostomy Skin Barrier Ring, 1/16 inch thickness, As directed, 1 month Supply miscellaneous medical supply Ostomy SafenSimple No-Sting Skin Barrier Film, As directed, 30 day supply montelukast 10 mg PO DAILY [multivitamin PO] nystatin mL PO PRN omeprazole 20 mg PO DAILY 90 days pantoprazole (Protonix) 40 mg PO DAILY 90 days Held on 07/22/24. Instructions: on hold phenazopyridine (Pyridium) 100 mg PO BID PRN 3 days potassium chloride ER 20 mEq PO TID tiotropium bromide (Spiriva with HandiHaler) 1 cap inhalation DAILY torsemide 20 mg PO DAILY 90 days warfarin 5 mg See Protocol PO DAILY 90 days Do you need a note to return to daycare/school/sports/work: No HPI HPI copd: Details: 79 years old female of a thin build with chronic obstructive pulmonary disorder and respiratory failure( hypoxemia ) Coming after 6 months for routine follow-up. She has had no acute infection or. exacerbation in the last 6 months She does get short of breath if she walks up hill or climbs stairs. She does have mild intermittent nasal congestion mainly due to allergies. Overall she has been doing well and stable. [facility] Medical History Hypoxemia Allergic rhinitis Pleural effusion Nocturnal hypoxemia Exercise hypoxemia Chronic atrial fibrillation Prosthetic valve dysfunction Nocturnal hypoxemia COPD (chronic obstructive pulmonary disease) COPD (chronic obstructive pulmonary disease) (HFpEF) heart failure with preserved ejection fraction GERD (gastroesophageal reflux disease) Hypothyroid Hyperlipidemia Asthma Surgical History Hx of abdominal surgery History of hernia surgery History of salpingo-oophorectomy History of carpal tunnel release History of hysterectomy History of colonoscopy History of mechanical aortic valve replacement (~2002) Family History Mother No problems noted. Father Myocardial infarction CAD (coronary artery disease) Brother Myocardial infarction Brother Myocardial infarction Social History Housing: Other Housing Other:: Mobile Home Alcohol intake: never Patient Tobacco Use Status: Never used Tobacco e-Cigarette/Vaping Use: Never Used Second Hand Smoke Exposure: No service: No Current occupational status: retired Current occupational exposures/hazards: No Cognitive needs: No Hearing needs: No Vision needs: No Review of Systems Const All systems reviewed & are unremarkable except as noted in HPI and below Eyes Reports no additional complaints ENT Reports no additional complaints Card Denies chest pain, Reports irregular heart rhythm, Reports leg edema (Mild) and Reports dyspnea on exertion Resp Reports as per HPI, Denies cough, Reports dyspnea on exertion and Denies wheezing GI Reports no additional complaints Reports no additional complaints Skin/Breast Reports dry skin Neuro Reports no additional complaints Psych Reports no additional complaints Aller/Immun Denies wheezing Physical Exam Vital Signs: Last Vital Signs Pulse 108 H 02/26/25 13:48 Pulse Ox 95 02/26/25 13:48 Oxygen Delivery Method Nasal Cannula 02/26/25 13:48 Oxygen Flow Rate 2 02/26/25 13:48 BMI result Body Mass Index 22.6 Const General: comfortable (But appears very weak), no acute distress, alert and awake Orientation/consciousness: patient oriented x3 HEENT Head: Yes normal to inspection General nose exam: No nasal polyps present and No nasal discharge present Face and sinus: Yes sinuses nontender Mouth: oropharynx normal Throat: Yes posterior oropharynx normal Eyes General: appearance normal, both eyes and all related structures Neck Neck: Yes normal visual inspection, Yes no lymphadenopathy, Yes trachea midline and Yes no JVD Thyroid: Thyroid normal Chest Chest palpation & inspection: normal inspection of the chest (Midline scar from previous open heart surgery for aortic valve replacement), normal palpation of entire chest wall and no tenderness Resp Other: Percussion note is resonant, breath sounds are very distant on both sides with prolonged expiratory phase. Lungs are basically clear and no wheezes or crepitations today Cardio Palpation: normal PMI Rate: regular rate Rhythm: regular rhythm Heart sounds: Clicking heart sound present (Metallic heart sounds), no gallops and no murmurs GI Palpation (GI): Soft to palpation, nontender, No hepatosplenomegaly present, no masses and Other GI palpation findings present (Colostomy bag in the left upper quadrant,a few areas of ventral herniation) Auscultation: normal bowel sounds Back/Spine/Pelvis Thoracic/Lumbar Spine: thoracic and lumbar spine normal to inspection and thoraco-lumbar ROM limited Skin General skin exam: no rashes or lesions noted and dry skin Neuro General: patient oriented x3 and no focal motor deficits Cranial nerves: Yes CN's II-XII intact bilaterally Extrem General: Yes normal to inspection, Yes no calf tenderness and Yes edema (1+ edema around the ankles) Psych Appearance: grossly normal and well kempt Speech and movement: Normal speech and movement present Results AMB INR Fingerstick AMB INR Fingerstick 2.9 Last Edit by Charley Carbajal RN on 02/26/25 08:43 Assessment & Plan Assessment & Plan (1) COPD (chronic obstructive pulmonary disease): Comment: PATIENT HAS CHRONIC , MODERATELY SEVERE OBSTRUCTIVE AIRWAY DISORDER, WHICH IS REMAINING WELL CONTROLLED WITH HER CURRENT MEDICAL REGIMEN. SHE HAS HAD NO ACUTE EXACERBATION Code(s): J44.9 - Chronic obstructive pulmonary disease, unspecified Category: Medical Plan: Continue using Advair 500-51 inhalation b.i.d., Spiriva HandiHaler 1 inhalation daily, and albuterol HFA Q 6 hours p.r.n./ albuterol 2.5 mg in the nebulizer Q 4-6 hours p.r.n. (2) Hypoxemia: Comment: PATIENT HAS NOCTURNAL WELL EXERCISE INDUCED HYPOXEMIA , AND SHE USES O2 2 L/MINUTE ALMOST 24 HOURS A DAY. SHE DOES HAVE O2 CONCENTRATOR AT HOME AND A LIGHTWEIGHT PORTABLE CYLINDER Code(s): R09.02 - Hypoxemia Category: Medical Plan: ADVISED TO CONTINUE USING O2 2 L/MINUTE AT NIGHT AND ALSO DURING THE DAYTIME BUT CAN TAKE SHORT BREAKS WHEN JUST SITTING AND RESTING. (3) Allergic rhinitis: Comment: Patient has ongoing chronic allergic rhinitis, which is well controlled with current medical regimen. THIS PATIENT WAS ON ALLERGY SHOTS FOR MANY YEARS BUT THEY WERE STOPPED SINCE 2023 AND SHE HAS HAD NO INCREASE IN THE SYMPTOMS. Code(s): J30.9 - Allergic rhinitis, unspecified Category: Medical Plan: FLONASE-51 OR 2 INHALATIONS IN THE NOSE P.R.N. AND ALSO CONTINUE USING MONTELUKAST 10 MG DAILY. Coding Level of Care Code Est Pt Level 3 (58700) Diagnoses COPD (chronic obstructive pulmonary disease) J44.9 Hypoxemia R09.02 Allergic rhinitis J30.9
== END 2025-02-26 14:06 | disposition home or self-care (01) ==
LOC: HO.HPS 13:45
PROVIDERS: PCP Family Medicine; Visit Provider Internal Medicine
DX: J44.9 Chronic obstructive pulmonary disease, unspecified (principal); R09.02 Hypoxemia; J30.9 Allergic rhinitis, unspecified
CPT/HCPCS: 99213

== ENCOUNTER 2025-03-25 14:17 | Outpatient (AMB) | payer MEDICARE, SELFPAY ==
[2025-03-25 14:19] VITALS: BP 120/72; PULSE 91; BMI 22.4
--- NOTE | 2025-03-25 14:19 | MHC.OFFVIS ---
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: No Allergies Seasonal Allergies Allergy (Severe, Verified 03/19/25 13:29) Itchy Eyes house dust Allergy (Intermediate, Verified 03/19/25 13:29) Sneezing aspirin Allergy (Unknown, Verified 03/19/25 13:29) Sick codeine (CODEINE) Adverse Reaction (Intermediate, Verified 03/19/25 13:29) NAUSEA & VOMITING ibuprofen (From ADVIL) Adverse Reaction (Intermediate, Verified 03/19/25 13:29) NAUSEA & VOMITING Medication List - Last Reconciled 03/25/25 by Darius Spicer MD albuterol sulfate 2.5 mg (3 mL) inhalation Q4H albuterol sulfate 90 mcg/actuation (Ventolin HFA) 1 puff inhalation QID PRN 30 days atorvastatin 80 mg PO BEDTIME [calcium with d PO] diltiazem HCl CD (Cardizem CD) 180 mg PO BID 90 days fluticasone propion-salmeterol 500-50 mcg/dose 1 inh inhalation BID 30 days fluticasone propionate 50 mcg/actuation (Flonase Allergy Relief) 1 spray intranasal Q12H PRN levothyroxine 137 mcg PO DAILY 90 days magnesium oxide 200 mg PO DAILY miscellaneous medical supply Xpro Ostomy Pouch, As directed, One month supply miscellaneous medical supply Ostomy Skin Barrier Ring, 1/16 inch thickness, As directed, 1 month Supply miscellaneous medical supply Ostomy SafenSimple No-Sting Skin Barrier Film, As directed, 30 day supply montelukast 10 mg PO DAILY [multivitamin PO] nystatin mL PO PRN omeprazole 20 mg PO DAILY 90 days phenazopyridine (Pyridium) 100 mg PO BID PRN 3 days potassium chloride ER 20 mEq PO TID tiotropium bromide (Spiriva with HandiHaler) 1 cap inhalation DAILY torsemide 20 mg PO DAILY 90 days warfarin 5 mg See Protocol PO DAILY 90 days HPI Comments Details: Danielle comes for follow-up. New worsening cardiac complaints. Denies any worsening shortness of breath. No orthopnea, PND, significantly progressive leg edema. No weight gain. She has in fact been losing weight. She says she does not sleep well. Pulmonary function has remained stable. No bleeding issues or neurologic events. No prolonged palpitation irregular heartbeat. [facility]MERLY [facility] Medical History Hypoxemia Allergic rhinitis Pleural effusion Nocturnal hypoxemia Exercise hypoxemia Chronic atrial fibrillation Prosthetic valve dysfunction Nocturnal hypoxemia COPD (chronic obstructive pulmonary disease) COPD (chronic obstructive pulmonary disease) (HFpEF) heart failure with preserved ejection fraction GERD (gastroesophageal reflux disease) Hypothyroid Hyperlipidemia Asthma Surgical History Hx of abdominal surgery History of hernia surgery History of salpingo-oophorectomy History of carpal tunnel release History of hysterectomy History of colonoscopy History of mechanical aortic valve replacement (~2002) Family History Mother No problems noted. Father Myocardial infarction CAD (coronary artery disease) Brother Myocardial infarction Brother Myocardial infarction Social History Housing: Other Housing Other:: Mobile Home Alcohol intake: never Patient Tobacco Use Status: Never used Tobacco e-Cigarette/Vaping Use: Never Used Second Hand Smoke Exposure: No service: No Current occupational status: retired Current occupational exposures/hazards: No Cognitive needs: No Hearing needs: No Vision needs: No Review of Systems Const Denies chills, Denies fatigue, Denies fever(s), Denies frequent falls, Denies weakness, Denies weight gain and Denies weight loss ENT Denies dizziness Card Denies chest pain, Denies leg edema, Denies lightheadedness, Denies palpitations, Denies dyspnea, Denies dyspnea on exertion, Denies orthopnea and Denies other (loss of consciousness) Resp Denies cough, Denies dyspnea and Denies dyspnea on exertion GI Denies hematochezia and Denies change in stool character Musc Denies abnormal gait, Denies muscle weakness, Denies numbness, Denies radiating pain into limb and Denies tingling Neuro Denies abnormal gait, Denies dizziness, Denies frequent falls, Denies numbness, Denies tingling and Denies weakness Endo Denies fatigue and Denies palpitations Physical Exam Vital Signs: Last Vital Signs Pulse 91 03/25/25 14:19 BP 120/72 03/25/25 14:19 BMI result Body Mass Index 22.4 Const General: comfortable (But appears very weak), no acute distress, alert and awake Nutritional Appearance: thin and other (Frail appearing) Orientation/consciousness: patient oriented x3 HEENT Head: Yes normal to inspection General nose exam: No nasal polyps present and No nasal discharge present Face and sinus: Yes sinuses nontender Mouth: oropharynx normal Throat: Yes posterior oropharynx normal Eyes General: appearance normal, both eyes and all related structures Neck Neck: Yes normal visual inspection, Yes no lymphadenopathy, Yes trachea midline and Yes no JVD (Positive AJR) Chest Chest palpation & inspection: normal inspection of the chest (Midline scar from previous open heart surgery for aortic valve replacement), normal palpation of entire chest wall and no tenderness Resp Other: Percussion note is resonant, breath sounds are very distant on both sides with prolonged expiratory phase. No wheezes rhonchi or crepitations are heard. Auscultation: diminished lung sounds bilateral in the lower lung triana Cardio Jugular venous distension: other (Mild JVD) Palpation: normal PMI Rhythm: abnormal rhythm irregularly irregular Heart sounds: S1 normal heart sound present, Clicking heart sound present (Metallic heart sounds), no gallops and no murmurs GI Palpation (GI): Soft to palpation, nontender, No hepatosplenomegaly present, no masses and Other GI palpation findings present (Colostomy bag in the left upper quadrant,a few areas of ventral herniation) Auscultation: normal bowel sounds Back/Spine/Pelvis Thoracic/Lumbar Spine: thoracic and lumbar spine normal to inspection and thoraco-lumbar ROM limited Skin General skin exam: no rashes or lesions noted and dry skin Neuro General: patient oriented x3 and no focal motor deficits Cranial nerves: Yes CN's II-XII intact bilaterally Extrem General: Yes normal to inspection, Yes no calf tenderness, No clubbing, No cyanosis and Yes edema (1-2 + up to the knee) Psych Appearance: grossly normal and well kempt Speech and movement: Normal speech and movement present Office Procedures EKG Details: EKG shows atrial fibrillation with rightward axis with nonspecific ST-T changes [id number], Complete Assessment & Plan Assessment & Plan (1) (HFpEF) heart failure with preserved ejection fraction: Comment: It seems to be under control at this time. She is being followed by Cardiology very regularly. Code(s): I50.30 - Unspecified diastolic (congestive) heart failure Category: Medical Plan: Heart failure preserved ejection fraction, clinically euvolemic and well compensated current diuretic dose. Continue the same. Importance of heart failure management discussed. Continue daily weight monitoring avoidance salt loading. Additional diuretics as need be. Continue current rate control approach. Continue optimize pulmonary function which appears well at this point time. Continue oxygen therapy. Follow up in the clinic in 6 months time. (2) Chronic atrial fibrillation: Code(s): I48.20 - Chronic atrial fibrillation, unspecified Category: Medical Plan: Chronic rate control atrial fibrillation. Rate is adequately controlled on current therapy with diltiazem. Continue the same. Continue full oral anticoagulation, currently on warfarin. Target INR between 2.5 and 3.5 being followed by [facility]. 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 Clinically doing well. No need for any interventions at this point time. Continue to monitor by echocardiogram. Will repeat echocardiogram few months time. Continue full oral anticoagulation with target INR between 2.5 and 3.5. SBE prophylaxis as per [facility]/[place] guidelines. Follow up in the clinic in 6 months time, sooner p.r.n.. Thank you for allowing me to partake in her care Coding Level of Care Code Est Pt Level 4 (23689) Complex EM visit Add On G2211 Diagnoses (HFpEF) heart failure with preserved ejection fraction I50.30 Chronic atrial fibrillation I48.20 Prosthetic valve dysfunction T82.09XA CPT Codes EKG - CPT: 59930-[id number], Complete ([id number])
== END 2025-03-25 14:45 | disposition home or self-care (01) ==
LOC: HO.HCS 14:18
PROVIDERS: PCP Family Medicine; Visit Provider Internal Medicine Cardiovascular Disease
DX: I50.30 Unspecified diastolic (congestive) heart failure (principal); I48.20 Chronic atrial fibrillation, unspecified; T82.09XA Other mechanical complication of heart valve prosthesis, initial encounter
CPT/HCPCS: 93010; 99214; G2211

== ENCOUNTER → 2025-03-25 14:17 | Outpatient (BNVA) | payer MEDICARE, SELFPAY | PROVIDERS: PCP Family Medicine; Visit Provider Internal Medicine Cardiovascular Disease | DX: I48.20 Chronic atrial fibrillation, unspecified (principal); I11.0 Hypertensive heart disease with heart failure; I50.30 Unspecified diastolic (congestive) heart failure; T82.09XA Other mechanical complication of heart valve prosthesis, initial encounter | CPT/HCPCS: 93005; 99212 ==

== ENCOUNTER 2025-03-27 14:22 | Outpatient (REF) | payer MEDICARE, SELFPAY | END 2025-03-27 14:23 | disposition home or self-care (01) | LOC: HO.WFDLDS 14:22 | PROVIDERS: Visit Provider Urology | DX: Z13.89 Encounter for screening for other disorder (principal) ==

== ENCOUNTER 2025-03-28 07:27 | Outpatient (REF) | payer MEDICARE, SELFPAY ==
[2025-03-28 11:26] LABS: Appearance Urine Turbid; Glucose Urine UA Negative (Negative); PH 8.5 (5.0-9.0); Specific Gravity - Urine 1.015 (1.005-1.025); UMIC TRIGGER UA YES
== END 2025-03-28 07:28 | disposition home or self-care (01) ==
LOC: HO.LNP 07:27
PROVIDERS: Visit Provider Urology
DX: N39.0 Urinary tract infection, site not specified (principal)
CPT/HCPCS: 81001; 87086

== ENCOUNTER → 2025-04-16 09:22 | Outpatient (BNVA) | payer MEDICARE, SELFPAY | PROVIDERS: PCP Family Medicine; Visit Provider Internal Medicine Medical Oncology | DX: R39.12 Poor urinary stream (principal); N81.10 Cystocele, unspecified; N39.41 Urge incontinence | CPT/HCPCS: 81003; 99212 ==

== ENCOUNTER 2025-04-16 15:39 | Outpatient (AMB) | payer MEDICARE, SELFPAY ==
--- NOTE | 2025-04-16 16:04 | A.OFFVIS_ITS ---
Intake Visit Reasons: 2m f/u Intake Note: Patient is present for 2 month follow up/Pessary Check Urology Med:Potassium Antibiotic Allergy: None Blood Thinner: Warfarin Allergies Seasonal Allergies Allergy (Severe, Verified 04/16/25 16:11) Itchy Eyes house dust Allergy (Intermediate, Verified 04/16/25 16:11) Sneezing aspirin Allergy (Unknown, Verified 04/16/25 16:11) Sick codeine (CODEINE) Adverse Reaction (Intermediate, Verified 04/16/25 16:11) NAUSEA & VOMITING ibuprofen (From ADVIL) Adverse Reaction (Intermediate, Verified 04/16/25 16:11) NAUSEA & VOMITING Medication List - Last Reconciled 04/16/25 by Alex Franklin MD albuterol sulfate 2.5 mg (3 mL) inhalation Q4H albuterol sulfate 90 mcg/actuation (Ventolin HFA) 1 puff inhalation QID PRN 30 days atorvastatin 80 mg PO BEDTIME [calcium with d PO] diltiazem HCl CD (Cardizem CD) 180 mg PO BID 90 days estradiol 0.01%(0.1mg/gram) (Estrace) apply dime-size mount with fingertip vaginally daily; fluticasone propion-salmeterol 500-50 mcg/dose 1 inh inhalation BID 30 days fluticasone propionate 50 mcg/actuation (Flonase Allergy Relief) 1 spray intranasal Q12H PRN levothyroxine 137 mcg PO DAILY 90 days magnesium oxide 200 mg PO DAILY miscellaneous medical supply Xpro Ostomy Pouch, As directed, One month supply miscellaneous medical supply Ostomy Skin Barrier Ring, 1/16 inch thickness, As directed, 1 month Supply miscellaneous medical supply Ostomy SafenSimple No-Sting Skin Barrier Film, As directed, 30 day supply montelukast 10 mg PO DAILY [multivitamin PO] nystatin mL PO PRN omeprazole 20 mg PO DAILY 90 days potassium chloride ER 20 mEq PO TID tiotropium bromide (Spiriva with HandiHaler) 1 cap inhalation DAILY torsemide 20 mg PO DAILY 90 days warfarin 5 mg See Protocol PO DAILY 90 days PFSH Medical History Hypoxemia Allergic rhinitis Pleural effusion Nocturnal hypoxemia Exercise hypoxemia Chronic atrial fibrillation Prosthetic valve dysfunction Nocturnal hypoxemia COPD (chronic obstructive pulmonary disease) COPD (chronic obstructive pulmonary disease) (HFpEF) heart failure with preserved ejection fraction GERD (gastroesophageal reflux disease) Hypothyroid Hyperlipidemia Asthma Surgical History Hx of abdominal surgery History of hernia surgery History of salpingo-oophorectomy History of carpal tunnel release History of hysterectomy History of colonoscopy History of mechanical aortic valve replacement (~2002) Family History Mother No problems noted. Father Myocardial infarction CAD (coronary artery disease) Brother Myocardial infarction Brother Myocardial infarction Social History Housing: Other Housing Other:: Mobile Home Alcohol intake: never Patient Tobacco Use Status: Never used Tobacco e-Cigarette/Vaping Use: Never Used Second Hand Smoke Exposure: No service: No Current occupational status: retired Current occupational exposures/hazards: No Cognitive needs: No Hearing needs: No Vision needs: No Results AMB INR Fingerstick AMB INR Fingerstick 2.5 Last Edit by Charley Carbajal RN on 04/16/25 09:27 AMB Urinalysis, Automated UA Leukoctes 500 Cuco/uL Last Edit by Ericka Cruz on 04/16/25 17:25 UA Nitrite Negative Last Edit by Ericka Cruz on 04/16/25 17:25 UA Urobilinogen 3.5 mg/dL Last Edit by Ericka Cruz on 04/16/25 17:25 UA Protein 0.3 mg/dL Last Edit by Ericka Cruz on 04/16/25 17:25 UA pH 5.5 Last Edit by Ericka Cruz on 04/16/25 17:25 UA Blood 200 Elías/uL Last Edit by Ericka Cruz on 04/16/25 17:25 UA Specific [place] 1.015 Last Edit by Ericka Cruz on 04/16/25 17:25 UA Ketone Negative Last Edit by Ericka Cruz on 04/16/25 17:25 UA Bilirubin 0 mg/dL Last Edit by Ericka Cruz on 04/16/25 17:25 UA Glucose 0 mg/dL Last Edit by Ericka Cruz on 04/16/25 17:25 Assessment & Plan Assessment & Plan Orders: Orders AMB Urinalysis Automated Today Z13.9 - Encounter for screening, unspecified Referrals Urogynecology Referral N81.10 - Cystocele, unspecified Medications: New estradiol 0.01%(0.1mg/gram) (Estrace) apply dime-size mount with fingertip vaginally daily; 42.5 grams 1RF Coding
== END 2025-04-16 16:58 | disposition home or self-care (01) ==
LOC: HO.HUSH 15:39
PROVIDERS: PCP Family Medicine; Visit Provider Urology
DX: Z13.9 Encounter for screening, unspecified (principal)

== ENCOUNTER 2025-04-24 15:02 | Outpatient (REF) | payer MEDICARE, SELFPAY | END 2025-04-24 15:03 | disposition home or self-care (01) | LOC: HO.WFDLDS 15:02 | PROVIDERS: Visit Provider Urology | DX: Z13.89 Encounter for screening for other disorder (principal) ==

== ENCOUNTER 2025-04-25 11:39 | Outpatient (REF) | payer MEDICARE, SELFPAY ==
[2025-04-25 12:11] LABS: Appearance Urine Hazy; PH 6.5 (5.0-9.0); Specific Gravity - Urine 1.010 (1.005-1.025); UMIC TRIGGER UA YES
== END 2025-04-25 11:40 | disposition home or self-care (01) ==
LOC: HO.LNP 11:39
PROVIDERS: Visit Provider Urology
DX: N39.0 Urinary tract infection, site not specified (principal)
CPT/HCPCS: 81001; 87086

== ENCOUNTER 2025-06-02 16:11 | Outpatient (AMB) | payer MEDICARE, SELFPAY ==
--- NOTE | 2025-06-02 16:12 | A.OFFVIS_ITS ---
Intake Visit Reasons: prolapse f/u Intake Note: Patient is present via telehealth for prolapse follow up Urology Med:Potassium Antibiotic Allergy: None Blood Thinner: Warfarin Allergies Seasonal Allergies Allergy (Severe, Verified 06/02/25 16:12) Itchy Eyes house dust Allergy (Intermediate, Verified 06/02/25 16:12) Sneezing aspirin Allergy (Unknown, Verified 06/02/25 16:12) Sick codeine (CODEINE) Adverse Reaction (Intermediate, Verified 06/02/25 16:12) NAUSEA & VOMITING ibuprofen (From ADVIL) Adverse Reaction (Intermediate, Verified 06/02/25 16:12) NAUSEA & VOMITING Medication List - Last Reconciled 06/02/25 by Alex Franklin MD albuterol sulfate 2.5 mg (3 mL) inhalation Q4H albuterol sulfate 90 mcg/actuation (Ventolin HFA) 1 puff inhalation QID PRN 30 days atorvastatin 80 mg PO BEDTIME [calcium with d PO] diltiazem HCl CD (Cardizem CD) 180 mg PO BID fluticasone propion-salmeterol 500-50 mcg/dose 1 inh inhalation BID 30 days fluticasone propionate 50 mcg/actuation (Flonase Allergy Relief) 1 spray intranasal Q12H PRN levothyroxine 137 mcg PO DAILY 90 days magnesium oxide 200 mg PO DAILY miscellaneous medical supply Xpro Ostomy Pouch, As directed, One month supply miscellaneous medical supply Ostomy Skin Barrier Ring, 1/16 inch thickness, As directed, 1 month Supply miscellaneous medical supply Ostomy SafenSimple No-Sting Skin Barrier Film, As directed, 30 day supply montelukast 10 mg PO DAILY [multivitamin PO] nystatin mL PO PRN omeprazole 20 mg PO DAILY 90 days potassium chloride ER 20 mEq PO TID tiotropium bromide (Spiriva with HandiHaler) 1 cap inhalation DAILY torsemide 20 mg PO DAILY 90 days warfarin 5 mg See Protocol PO DAILY 90 days HPI Comments Details: 06/02/25-Danielle has failed pessary management. She is instructed to manually reduce prolapse prn. She has received correspondence from [facility], She received a letter; but does not have a pending appointment. She is encouraged to give the office a call if an appointment is not made by mid week. Follow-up with us PRN 04/16/25--Danielle is here for follow-up, vaginal prolapse with pessary management. She was last seen on 01/27/2025 a Gellhorn size 9 pessary was placed due to prior sizes falling out. On examination there is vaginal bleeding noted and I am concerned about the large size of the pessary may cause vaginal excoriation and pressure sores. I have removed the pessary and we will refer her to Urogynecology for surgical management. 01/27/25--- The patient is a 79-year-old female presenting with a pessary fitting for pelvic organ prolapse management. - prior gellhorn size 7 fell out - The patient has experienced urinary symptoms, including difficulty urinating, leading to the pessary fitting. - A Gellhorn size 9 pessary was selected to manage the prolapse, as smaller size gellhorn pessary have fallen out, with awareness of potential vaginal bleeding due to tissue pressure. - Urinalysis showed 3 plus blood and 1 plus leukocytes, - Empirical antibiotics have been initiated pending urine culture results. Urinary Symptoms Review - Difficulty urinating noted, prompting pessary fitting. - Urinalysis results: 3 plus blood, 1 plus leukocytes, suggesting urinary tract infection. Results - Urinalysis: 3 plus blood, 1 plus leukocytes Plan - Start empirical antibiotics for urinary tract infection pending urine culture results. - Monitor for any vaginal bleeding or discomfort due to pessary use and report immediately. - Schedule follow-up in two months to reassess pessary fitting and address any ongoing issues. 11/29/24--the patient returns today and states that the Gellhorn pessary fell out. I have tried to replace it today. But it has again come out when the patient went to the bathroom. I have discussed ordering a larger pessary. 11/25/24--The patient is a 79-year-old female presenting with pessary management due to discharge. She is experiencing discomfort and discharge associated with the size 7 Gellhorn pessary, which was intended to manage prolapse and has helped with urinary incontinence. Urinary symptoms have improved since pessary introduction, significantly reducing incontinence episodes, although the patient expresses concern over the persistent odorous vaginal discharge. Initial attempts at utilizing a size 6 pessary failed due to frequent expulsion, requiring transition to a size 7, now causing fitting issues and associated bloody discharge. There are no signs of urinary tract infection such as burning or painful urination. Urinary Symptoms Review - Presence of urinary incontinence with prior frequency. - Improvement noted with pessary use. - No pain or burning during urination. - Occasional bloody discharge associated with pessary - Previous issues with size 6 pessary expulsion. Plan: Gelhorn size 7 pessary cleaned and replaced. FU in 2 months 09/27/24--Pessary staying in place, had UTI symptoms left urine at lab. Ceftin 500 mg bid for 7 days, FU in 2 months pessary maintenance. 08/26/24-- Here for pessary fitting, ring pessaries did not support prolapse Trial Gelhorn size 6 fell out with squatting and bending. Gelhorn size 7 placed and stayed when she squatted. Reviewed renal ultrasound 08/08/2024--bilateral simple cysts negative for renal stones. The patient was unable to urinate at time of procedure due to prolapsed bladder. 06/10/24--here for cysto and pessary fitting. Cystoscopy findings: Mild bladder wall thickening, no suspicious bladder lesions visualized. Pessary fitting: Size 3, 4, and 5 mentor pessary with support placed vaginally, all three fell out in the office. Will order gelhorn pessaries to trial on FU. 04/24/24--Persistent UTI. After hospitalization Required 3 courses of antibiotics ?bladder dropped? states had a pessary in the past placed by child welfare director. Has urinary symptoms of slowing of urinary stream as well as urgency and leakage. She wears a pad Plan renal ultrasound follow-up office cystoscopy pessary fitting [facility] Medical History Hypoxemia Allergic rhinitis Pleural effusion Nocturnal hypoxemia Exercise hypoxemia Chronic atrial fibrillation Prosthetic valve dysfunction Nocturnal hypoxemia COPD (chronic obstructive pulmonary disease) COPD (chronic obstructive pulmonary disease) (HFpEF) heart failure with preserved ejection fraction GERD (gastroesophageal reflux disease) Hypothyroid Hyperlipidemia Asthma Surgical History Hx of abdominal surgery History of hernia surgery History of salpingo-oophorectomy History of carpal tunnel release History of hysterectomy History of colonoscopy History of mechanical aortic valve replacement (~2002) Family History Mother No problems noted. Father Myocardial infarction CAD (coronary artery disease) Brother Myocardial infarction Brother Myocardial infarction Social History Housing: Other Housing Other:: Mobile Home Alcohol intake: never Patient Tobacco Use Status: Never used Tobacco e-Cigarette/Vaping Use: Never Used Second Hand Smoke Exposure: No service: No Current occupational status: retired Current occupational exposures/hazards: No Cognitive needs: No Hearing needs: No Vision needs: No Review of Systems Const All systems reviewed & are unremarkable except as noted in HPI and below Reports no additional complaints Eyes Reports no additional complaints ENT Reports no additional complaints Card Reports no additional complaints Resp Reports no additional complaints GI Reports no additional complaints Reports as per HPI Musc Reports no additional complaints Skin/Breast Reports system reviewed and no additional complaints, except as documented Neuro Reports no additional complaints Psych Reports no additional complaints Endo Reports no additional complaints Marcelino/Lymph Reports no additional complaints Aller/Immun Reports no additional complaints Telehealth Telehealth Telehealth Platform: [employer] Location of provider rendering services: practice address Location of patient: address on file Patient Identification confirmed using: Name, : Yes Telehealth method: video Patient verbally consented to treatment: Yes Patient verbally consented to billing insurance company: Yes Patient informed of any privacy concerns related to visit: Yes Assessment & Plan Assessment & Plan (1) Female cystocele: Code(s): N81.10 - Cystocele, unspecified Category: Medical Plan Danielle has failed pessary management. She is instructed to manually reduce prolapse prn. She has received correspondence from [facility], She received a letter; but does not have a pending appointment. She is encouraged to give the office a call if an appointment is not made by mid week. Follow-up with us PRN Patient Instructions: The patient had an opportunity to ask questions regarding treatment plan. The patient expressed understanding and agreement with the above treatment plan. The patient is aware they should contact our office by phone for worsening of their current condition or the appearance of new symptoms. Compliance is encouraged with any medications and followup testing that is ordered. It is a privilege to be allowed the opportunity to participate in the urologic care of your patient. If you have any questions or concerns regarding treatment for the above conditions please do not hesitate to contact me. The office telephone contact is [phone]. This note is constructed in part using voice recognition software. While every effort has been made to ensure accuracy kindergarten teacher errors may have been included. Yours sincerely, Alex Franklin MD Coding Level of Care Code Tele Est Pt Level 3 (67013) Diagnoses Female cystocele N81.10
== END 2025-06-02 16:59 | disposition home or self-care (01) ==
LOC: HO.HUSH 16:11
PROVIDERS: PCP Family Medicine; Visit Provider Urology
DX: N81.10 Cystocele, unspecified (principal)
CPT/HCPCS: 99213